=== PATIENT | male | born 1955 | race Caucasian/White ===

== ENCOUNTER 2016-11-14 15:04 | Observation (INO) ==
--- NOTE | 2016-11-14 16:48 | Emergency Department Note ---
Addendum entered and electronically signed by Ancelmo Jenkins, 19:10: EKG dated 11/14/16 at 14:38 interpreted as atrial fibrillation with a rate of 65 and rare PVC.. Normal axis. Nonspecific ST T changes. Compared to previous dated 11/10/2015 showing sinus rhythm. No acute ischemic changes comparison; PVC present on comparative EKG. Repeat EKG 11/14/16 at 10:07 shows sinus rhythm with occasional PVC with a rate of 67. Normal intervals DE 176, QRS 86, QT/QTC 393/398. Normal axis. Rare PVC. Patient spontaneously converted from paroxysmal atrial fibrillation to sinus rhythm. Original Note: Disposition Clinical Impression: Transient neurological symptoms, Chest pain of uncertain etiology Disposition: Admitted As Inpatient Condition: Fair Time of Disposition: 18:24 General Adult HPI - General Chief complaint: ED Chest Pain Stated complaint: chest pain/junie/ams Time Seen by Provider: 11/14/16 15:06 Source: EMS Limitations: no limitations Nursing Notes Reviewed: Yes Vital Signs Reviewed: Yes - History of Present Illness HPI Narrative: Mr. Vasquez, a 61yo male, presents from home via EMS with multiple concerns, the greatest of which is he awoke with slurred speech without facial droop of approximate several minute duration. He is asymptomatic at this time. Last known normal was 10pm last night when he went to sleep. Hx CVA 6 months ago with sequale of left sided upper and lower extremity deficit. Hx CABG 4 yrs ago. Hx A. Fib subtheraputic on coumadin bridged on Lovenox. Upon awaking patient had associated chest pain, dyspnea, diaphoresis, and right upper and lower extremity weakness and parasthesia. Now resolved. He is unable to quantify the duration of these symptoms. His chest pain is described as a midsternal heaviness. He notes is the identical to his chronic post-CABG chest pain; no change in character or severity. No radiation. ROS: POS: CP. Transient slurred speech, right-sided upper and lower extremity weakness, dyspnea, diaphoresis. Negative: Fever, chills, nausea, vomiting, headache, confusion, changes in vision, abdominal pain, dysuria, diarrhea, constipation. Pain Scale: 0 - Related Data Home Medications Medication Instructions Recorded Confirmed Albuterol Sulfate [Proair Hfa] 2 puff IH QID PRN 08/29/15 11/14/16 Aspirin [Adult Low Dose Aspirin EC] 81 mg PO QAM 08/29/15 11/14/16 Chlordiazepoxide [Librium] 25 mg PO BID 08/29/15 11/14/16 Diphenoxylate/Atropine [Lomotil 2 each PO TID PRN 08/29/15 11/14/16 2.5 mg/0.025 mg] Ergocalciferol (VITAMIN D2) 50,000 unit PO MOWE 08/29/15 11/14/16 [Vitamin D2 (50,000 UNIT)] Furosemide [Lasix] 20 mg PO QAM 08/29/15 11/14/16 Isosorbide MONOnitrate (24 HR) 30 mg PO QPM 08/29/15 11/14/16 [Imdur] Lisinopril [Zestril] 20 mg PO BID 08/29/15 11/14/16 Nitroglycerin [Nitrostat] 0.4 mg SL Q5M PRN 08/29/15 11/14/16 [place]-3/Dha/Epa/Fish Oil [Fish Oil 2,000 mg PO BID 08/29/15 11/14/16 1,000 mg Softgel] OxyCODONE/APAP 10/325 [Percocet 1 each PO Q6HR PRN 08/29/15 11/14/16 10/325 MG] Potassium Chloride [K-Tab ER] 20 meq PO QAM 08/29/15 11/14/16 Venlafaxine HCl 100 mg PO BID 08/29/15 11/14/16 metFORMIN [Glucophage] 500 mg PO QAM 08/29/15 11/14/16 Enoxaparin [Lovenox] 80 mg SQ QAM 08/15/16 11/14/16 Carvedilol 12.5 mg PO BID 11/14/16 11/14/16 Furosemide [Lasix] 20 mg PO MOWEFR@1400 11/14/16 11/14/16 Warfarin [Coumadin] 10 mg PO SUTUTHSA 11/14/16 11/14/16 Warfarin [Coumadin] 12.5 mg PO MOWEFR 11/14/16 11/14/16 Previous Rx's Medication Instructions Recorded Simvastatin [Zocor] 40 mg PO HS #30 tablet 09/01/15 Mupirocin [Bactroban Oint] 1 appl TP BID #1 tube 04/10/16 Allergies Allergy/AdvReac Type Severity Reaction Status Date / Time morphine Allergy Agitated Verified 11/14/16 14:43 naproxen [From Naprosyn] Allergy Rash Verified 11/14/16 14:43 propoxyphene [From Darvon] Allergy Rash Verified 11/14/16 14:43 ziprasidone [From Geodon] Allergy Rash Verified 11/14/16 14:43 All systems ED: reviewed and negative except as stated. Past Medical History - Past Medical History Medical history: Reports: aortic aneurysm, asthma, atrial fibrillation, cancer, COPD, CVA, DVT, diabetes, hyperlipidemia, hypertension, renal disease Surgical history: Reports: angioplasty/stent, appendectomy, cancer surgery, cholecystectomy, herniorrhaphy, orthopedic, other, sinus surgery, other (aortic valve replacement; aortic root ) Psychiatric history: Reports: anxiety, depression - Social History Smoking Status: Never smoker Smokeless Tobacco Status: No Alcohol use: Reports: unknown Drug use: Reports: none Physical Exam Vital Signs Reviewed General: Patient is alert, oriented, and in no acute distress. HEENT: No facial asymmetry. Head is normocephalic and atraumatic. PERRLA, EOMI. Oral mucosa moist. Trachea midline. Cardiovascular: Heart regular rate and rhythm without clicks, rubs, gallops. Grade 3/6 LUSB systolic murmor. No JVD. PMI nondisplaced. No pedal edema. Respiratory: Symmetric chest rise with good respiratory effort. Bilateral breath sounds are clear without wheezing, crackles, or rhonchi. Abdomen: Obese. Bowel sounds present normoactive x-4 quadrants. Abdomen is soft , nondistended, and nontender. Musculoskeletal: LEFT: Strength 4/5 and symmetric in upper and lower extremities , DTR 2/4; this is patient's baseline per patient. RIGHT: Muscle strength 5/5 and symmetric in upper and lower extremities, DTR 2/4. Neuro: Cranial nerves II through XII without deficit. LEFT: reduced sensatino in upper and lower extremities; this is the patient's baseline per patient. RIGHT: sensation to light touch intact in upper and lower extremities. Psych: Patient's affect is appropriate for situation. - General Limitations: no limitations General appearance: alert Course Course Narrative: Per patient and at bedside, patient is at baseline. Last known well was 15hrs prior to my assessment. Given his hx of CVA with chronic left sided sequale and ACS, will workup both. On neurologic exam, patient stated he is unable to move his eyes as, "there is a frederick film over them." I clarified; he has no visual changes. There is no film on my inspection. Patient reiterates he cannot move his eyes. Patient moves his eyes during our discussion. When asked to look at the window to his left, he turns his head and look forward. I then asked him to look at me ( patient's front). He turns his eyes and his head follows. Similar results ( vice versa) when patient looks to his right and up to the ceiling. Thus, despite patient saying he cannot move his eyes, he is able to do so. Patient's chest pain is unchanged from his chronic post-CABG pain. Patient's symptoms very between myself, nursing, and my attending. Patient's workup is unremarkable. CT head and chest x-ray shows no acute findings per radiology read. Patient is mildly anemic however this is his baseline. Otherwise, no electrolyte abnormalities and negative troponin. Even so, patient remains high risk given his multiple comorbidities and concerning past medical history. Discussed with the admitting hospitalist who agrees to accept the patient for continued evaluation-likely MRI brain as well as serial troponins. So discussed this plan with the patient and his family at bedside. They had no additional questions or concerns at this time. They agreed to admission. Vital Signs Temperature 98 F 11/14/16 15:07 Pulse Rate 63 11/14/16 15:07 Respiratory Rate 18 11/14/16 15:07 Blood Pressure 162/92 11/14/16 15:07 O2 Sat by Pulse Oximetry 97 11/14/16 15:07 Temperature 97.5 F L 11/14/16 19:33 Pulse Rate 57 11/14/16 19:33 Respiratory Rate 18 11/14/16 19:33 Blood Pressure 152/82 11/14/16 19:33 O2 Sat by Pulse Oximetry 97 11/14/16 20:09 Oxygen Delivery Oxygen Delivery Room Air Medical Decision Making - Lab Data Result diagrams: 11/14/16 16:26 11/14/16 16:26 Lab Results 11/14/16 11/14/16 11/14/16 Range/Units 16:26 16:26 16:26 WBC 4.3 (4.3-11.1) K/mcL RBC 3.65 L (4.19-5.50) M/mcL Hgb 11.6 L (12.9-16.9) g/dL Hct 34.3 L (37.5-50.1) % MCV 94.0 (83.0-100.0) fL MCH 31.8 (28.0-33.3) pg MCHC 33.8 (31.6-35.5) g/dL RDW 12.1 (11.5-14.5) % Plt Count 242 (140-400) K/mcL MPV 8.4 L (9.4-12.4) fL Immature Gran % 0.7 (0-4) % Seg Neutrophils % 49.7 % Lymphocytes % 32.3 % Monocytes % 12.0 % Eosinophils % 4.1 % Basophils % 1.2 % Neutrophils # 2.2 (1.6-8.9) K/mcL Lymphocytes # 1.4 (0.6-4.6) K/mcL Monocytes # 0.5 (0.0-1.3) K/mcL Eosinophils # 0.2 (0.0-0.6) K/mcL Basophils # 0.1 (0.0-0.2) K/mcL PT 19.3 H (9.4-12.1) Seconds INR 1.8 APTT 35.5 (26.0-36.0) Seconds Sodium 138 (136-145) mEq/L Potassium 4.4 (3.5-4.5) mEq/L Chloride 108 (98-109) mEq/L Carbon Dioxide 23 (19-29) mEq/L BUN 18 (8-26) mg/dL Creatinine 0.87 (0.72-1.25) mg/dL Est GFR ( Amer) > 60 (> 60) Est GFR (Non-Af Amer) > 60 (> 60) BUN/Creatinine Ratio 21 (6-26) Glucose 100 H (70-99) mg/dL Calculated Osmolality 288 (280-300) Calcium 9.4 (8.6-10.8) mg/dL Magnesium 1.8 (1.6-2.6) mg/dL Troponin I (0-0.03) ng/mL 11/14/16 Range/Units 16:26 WBC (4.3-11.1) K/mcL RBC (4.19-5.50) M/mcL Hgb (12.9-16.9) g/dL Hct (37.5-50.1) % MCV (83.0-100.0) fL MCH (28.0-33.3) pg MCHC (31.6-35.5) g/dL RDW (11.5-14.5) % Plt Count (140-400) K/mcL MPV (9.4-12.4) fL Immature Gran % (0-4) % Seg Neutrophils % % Lymphocytes % % Monocytes % % Eosinophils % % Basophils % % Neutrophils # (1.6-8.9) K/mcL Lymphocytes # (0.6-4.6) K/mcL Monocytes # (0.0-1.3) K/mcL Eosinophils # (0.0-0.6) K/mcL Basophils # (0.0-0.2) K/mcL PT (9.4-12.1) Seconds INR APTT (26.0-36.0) Seconds Sodium (136-145) mEq/L Potassium (3.5-4.5) mEq/L Chloride (98-109) mEq/L Carbon Dioxide (19-29) mEq/L BUN (8-26) mg/dL Creatinine (0.72-1.25) mg/dL Est GFR ( Amer) (> 60) Est GFR (Non-Af Amer) (> 60) BUN/Creatinine Ratio (6-26) Glucose (70-99) mg/dL Calculated Osmolality (280-300) Calcium (8.6-10.8) mg/dL Magnesium (1.6-2.6) mg/dL Troponin I 0.00 (0-0.03) ng/mL Attestation Statement - Attestation Attestation: I, Dannie Graham, examined this patient and my medical decision-making was reviewed with the MARKETING DATABASE CONSULTANT/PA/Advanced Practice Nurse/Resident Physician. I agree with the documented findings, disposition and treatment plan as described except to the extent set forth below. 61-year-old male presents with concerns of chest pressure and possible increased weakness of his left upper and left lower extremities. The patient is a poor story and in that he has changed the place his weakness multiple times during his evaluation today however he states to me that he woke up this morning with significant confusion, slurred speech and increased left upper extremity and left lower extremity weakness. Patient states he has a history of a previous CVA which caused slurred speech and left upper and lower extremity weakness however today he was unable to ambulate and did not have any salicylic acid blender strength per his who was there at the time. Patient also reports having significant pain to his central chest that felt like a vice which lasted 10-15 minutes before improving without intervention. Patient has a history of hypertension, hyperlipidemia, diabetes and a history of cardiac stenting in the past. The pain is not present in the emergency department. Patient has no slurred speech to my exam however there is some mild left upper and left lower extremity weakness that is present which family states is baseline. EKG shows normal sinus rhythm with rate of 67 without evidence of STEMI. Repeat EKG showed normal sinus rhythm with rate of 65 without evidence of STEMI. Initial troponin was negative. CT of his head did not reveal acute intracranial hemorrhage or mass. Patient will be admitted to the hospital for further evaluation of his weakness and chest pain. NIH Stroke Scale - Level of Consciousness LOC: Alert - LOC Questions LOC Questions: Answers both correctly - LOC Commands LOC Commands: Performs both correctly - Best Gaze Best Gaze: Normal - Visual Visual: No visual loss - Facial Palsy Facial Palsy: Normal - Motor Arms Motor Arm-Left: No drift for 10 seconds Motor Arm-Right: No drift for 10 seconds - Motor Legs Motor Leg-Left: No drift for 5 seconds Motor Leg-Right: No drift for 5 seconds - Limb Ataxia Limb Ataxia: Normal, No Ataxia - Sensory Sensory: Normal - Best Language Best Language: No aphasia - Dysarthria Dysarthria: Normal - Extinction and Inattention Extinction and Inattention: Normal - NIHSS Total Score NIHSS Total Score: 0
[2016-11-14 16:50] LABS: Basophils # 0.1 K/mcL (0.0-0.2); Basophils % 1.2 %; Eosinophils # 0.2 K/mcL (0.0-0.6); Eosinophils % 4.1 %; Hematocrit 34.3 % (37.5-50.1); Hemoglobin 11.6 g/dL (12.9-16.9); Immature Granulocytes % 0.7 % (0-4); Lymphocytes # 1.4 K/mcL (0.6-4.6); Lymphocytes % 32.3 %; Mean Corpuscular HGB Conc 33.8 g/dL (31.6-35.5); Mean Corpuscular Hemoglobin 31.8 pg (28.0-33.3); Mean Platelet Volume 8.4 fL (9.4-12.4); Monocytes # 0.5 K/mcL (0.0-1.3); Neutrophils # 2.2 K/mcL (1.6-8.9); Platelet Count 242 K/mcL (140-400); Red Blood Count 3.65 M/mcL (4.19-5.50); Red Cell Distribution Width 12.1 % (11.5-14.5); Segmented Neutrophils % 49.7 %
[2016-11-14 16:55] LABS: INR 1.8; Prothrombin Time 19.3 Seconds (9.4-12.1)
[2016-11-14 16:58] LABS: Activated Partial Thrombo Time 35.5 Seconds (26.0-36.0)
[2016-11-14 17:06] LABS: BUN/Creatinine Ratio 21 (6-26); Blood Urea Nitrogen 18 mg/dL (8-26); Calcium 9.4 mg/dL (8.6-10.8); Carbon Dioxide 23 mEq/L (19-29); Chloride 108 mEq/L (98-109); Glucose 100 mg/dL (70-99); Magnesium 1.8 mg/dL (1.6-2.6); Osmolality,Calculated 288 (280-300); Potassium 4.4 mEq/L (3.5-4.5); Sodium 138 mEq/L (136-145); eGFR For African Americans > 60 (> 60); eGFR For Non-African Americans > 60 (> 60)
[2016-11-14] MEDS ORDERED: Naloxone 0.4 MG/ML INJ IVP PRN (20:54)
[2016-11-14] MEDS ORDERED: Nitroglycerin 0.4 MG TAB.SUBL SL PRN (20:58)
[2016-11-14] MEDS ORDERED: *HR* OxyCODONE/APAP 10/325 TABLET PO PRN (20:58)
[2016-11-14] MEDS ORDERED: *HR* Warfarin 5 MG TABLET PO SCH (21:00)
--- NOTE | 2016-11-14 21:37 | Internal Med History&Physical ---
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 He does have an appointment with [facility] neurology as an outpatient. He also has hx of CVA/TIA We will continue neuro assessments 2 we will obtain MRI 3 continue with aspirin and statin 4 consult neurology 5 FALL precautions (2) Chest pain of uncertain etiology Current visit: Yes Status: Acute 1 patient was awakened this a.m. with midsternal chest pain which did resolve on own. I do not suspect that this is cardiac in nature, pain is reproducible as well as occurs during inspiration. He does have history of chronic chest pain related to his previous CABG surgery. However as considering his extensive cardiac history ,we will continue to cycle cardiac troponins We will also obtain D chris to r/o possible PE dt pleuritic pain and history of DVTs 2 continue with nitroglycerin as needed for chest pain 3 continue aspirin and statin and beta shawn, [place] and Imdur 4 continue cardiac monitoring (3) DM (diabetes mellitus) Current visit: No Status: Acute 1 Accu-Cheks before meals at bedtime with sliding scale insulin will hold oral antidiabetics for now Qualifiers: Diabetes mellitus type: type 2 Diabetes mellitus complication status: with unspecified complications Diabetes mellitus detention insulin use: without detention use Qualified Code(s): E11.8 - Type 2 diabetes mellitus with unspecified complications (4) Paroxysmal atrial fibrillation Current visit: No Status: Acute 1 patient was in atrial fibrillation upon presentation he converted to sinus rhythm he does have a history of valvular heart disease we will continue with his Coumadin as well as Lovenox bridge. Patient does have a history of hypercoagulable state pharmacy to dose Coumadin. Yosef patient's INR is 1.8 did discuss with pharmacist Bryon who advised increasing Lovenox to 1 mg/kg twice a day (5) DVT prophylaxis Current visit: No Status: Acute Continue with Coumadin and Lovenox bridge Internal Medicine - H&P: HPI Chief complaint: Chest pain, garbled speech Admitted From: Emergency Dept Plans for Post Hospital Care: Home History of present illness: Mr. Vasquez is a 61 year old male extensive past medical history which does include valvular heart disease hypertension atrial fibrillation Parkinson's disease hypertension COPD chronic chest pain paroxysmal atrial fibrillation aortic valve replacement with bioprosthetic valve diabetes CVA neuropathy according to the patient he awoke approximately 5 AM this morning crying experiencing garbled speech as well as chest pain and shortness of breath and confusion and nausea he states the symptoms lasted approximately 10 minutes. He describes chest pain as midsternal heaviness nonradiating. He was able to get up and eat a bowl of cereal after about an hour he states his symptoms returned and again resolved on their own. His last known well time was approximately 10 PM the night before he did have a CVA approximately 6 months ago with sequela of left-sided upper and lower extremity deficit. He did report to a outpatient clinic for evaluation advised him to go to the ER. According to ER records CT/chest x-ray were obtained which revealed no acute findings per radiology read. Lab work did reveal some anemia however this seems to be his baseline other there were no electrolyte abnormalities his troponin was negative. According to ER records on neurological exam patient states he is unable to move his eyes it was noted the patient did move his eyes during the Discussion due to his extensive history patient has been admitted for further workup and evaluation. After extensive review of patient records. According to PCP records, Dr Richard, he has complain of crying episodes difficulty ambulating frequent falls increased agitation. He was seen by Dr. Krishna neurology on 08/27/[address] Krishna describe the patient having limiting gaze and paratonia involving the neck as well as experiencing dysphagia. MRI of the brain at that time did not reveal any evidence of atrophy in the cerebellum or indicate a history of a previous infarct. Dr. 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 He is scheduled to follow up with [facility] neurology. Presently the patient is alert oriented and appropriate he does follow simple commands during neurological assessment I do note that patient does turn head more often then moving his eyes particularly toward the right. His lung sounds are clear heart sounds are S1 and S2 he does have a 3/6 systolic murmur. He does have lower extremity edema which she states is chronic abdomen soft and nontender he does have reproducible pain along his sternum. Patient states he does have chest pain upon inspiration and during palpation of chest. Patient does have left-sided weakness hand grasps weak. Patient states this is his baseline He is hemodynamically stable this time. I reviewed his case with who agrees with plan Past Med Surg Social Fam HX - Past Medical History Medical history: aortic aneurysm, asthma, atrial fibrillation, cancer, COPD, CVA , DVT, diabetes, hyperlipidemia, hypertension, renal disease Psychiatric history: anxiety, depression - Past Surgical History Surgical History: angioplasty/stent, appendectomy, cancer surgery, cholecystectomy, herniorrhaphy, orthopedic, other, sinus surgery, other - Social History Smoking Status: Never smoker Smokeless Tobacco Status: No Alcohol use: none Drug use: none - Family History Mother Family Member Ethnicity: Non- Living Status: Hx Family Cardiac Disorders: No Hx Family Respiratory Disorders: No Hx Family Cancer: Yes (Lung cancer) Hx Family GI Disorders: No Hx Family Endocrine Disorder: No Hx Family Neuromuscular Disorders: No Hx Family Neurologic Disorders: No Hx Family HEENT Disorders: No Hx Family Autoimmune Disorders: No Internal Medicine - H&P: Meds Albuterol Sulfate [Proair Hfa] 2 puff IH QID PRN 08/29/15 [History] Aspirin [Adult Low Dose Aspirin EC] 81 mg PO QAM 08/29/15 [History] Chlordiazepoxide [Librium] 25 mg PO BID 08/29/15 [History] Diphenoxylate/Atropine [Lomotil 2.5 mg/0.025 mg] 2 each PO TID PRN 08/29/15 [ History] Ergocalciferol (VITAMIN D2) [Vitamin D2 (50,000 UNIT)] 50,000 unit PO MOWE 08/28 [History] Furosemide [Lasix] 20 mg PO QAM 08/29/15 [History] Isosorbide MONOnitrate (24 HR) [Imdur] 30 mg PO QPM 08/29/15 [History] Lisinopril [Zestril] 20 mg PO BID 08/29/15 [History] Nitroglycerin [Nitrostat] 0.4 mg SL Q5M PRN 08/29/15 [History] [place]-3/Dha/Epa/Fish Oil [Fish Oil 1,000 mg Softgel] 2,000 mg PO BID 08/29/15 [ History] OxyCODONE/APAP 10/325 [Percocet 10/325 MG] 1 each PO Q6HR PRN 08/29/15 [History] Potassium Chloride [K-Tab ER] 20 meq PO QAM 08/29/15 [History] Venlafaxine HCl 100 mg PO BID 08/29/15 [History] metFORMIN [Glucophage] 500 mg PO QAM 08/29/15 [History] Simvastatin [Zocor] 40 mg PO HS #30 tablet 09/01/15 [Rx] Mupirocin [Bactroban Oint] 1 appl TP BID #1 tube 04/10/16 [Rx] Enoxaparin [Lovenox] 80 mg SQ QAM 08/15/16 [History] Carvedilol 12.5 mg PO BID 11/14/16 [History] Furosemide [Lasix] 20 mg PO MOWEFR@1400 11/14/16 [History] Warfarin [Coumadin] 10 mg PO SUTUTHSA 11/14/16 [History] Warfarin [Coumadin] 12.5 mg PO MOWEFR 11/14/16 [History] Allergies morphine Allergy (Verified 11/14/16 14:43) Agitated naproxen [From Naprosyn] Allergy (Verified 11/14/16 14:43) Rash propoxyphene [From Darvon] Allergy (Verified 11/14/16 14:43) Rash ziprasidone [From Geodon] Allergy (Verified 11/14/16 14:43) Rash All Systems PM: A 10-system review of systems was performed and is negative for pertinent findings except as documented above in the HPI. - Constitutional Constitutional: falls, weakness, weight loss, no chills, no fever(s), no night sweats - EENT Eyes: blurry vision, no change in vision, no discharge, no pain, no photophobia Nose, mouth and throat: dysphagia, no nasal discharge, no neck pain, no sore throat - Cardiovascular Cardiovascular ROS IM: chest pain, edema - Respiratory Respiratory: dyspnea, no cough, no wheezing, no excessive phlegm production - Gastrointestinal Gastrointestinal: no abdominal pain, no diarrhea, no hematemesis, no hematochezia, no melena, no nausea, no vomiting - Musculoskeletal Musculoskeletal ROS IM: back pain, no numbness, no tingling - Integumentary Integumentary IM: no rash, no unusual bruising - Neurological Neurological ROS: abnormal speech, confusion, frequent falls, no convulsions, no focal weakness, no numbness, no tingling, no tremor(s) - Psychiatric Psychiatric: confusion - Hematologic/Lymphatic Hematologic/Lymphatic: no easy bruising - Constitutional Vitals: Temp Pulse Resp BP Pulse Ox 97.5 F L 57 18 152/82 97 11/14/16 19:33 11/14/16 19:33 11/14/16 19:33 11/14/16 19:33 11/14/16 20:09 General appearance: Present: A&O X 3 - Head Head exam: Present: atraumatic, normocephalic - Eye Eye exam: Present: PERRL, conjuntiva pink, sclera anicteric Pupils: Present: PERRL - Neck Neck exam general surgery: Present: supple, trachea midline. Absent: lymphadenopathy - Respiratory Respiratory exam: Present: CTAB. Absent: accessory muscle use, rales, rhonchi, wheezes - Cardiovascular Cardiovascular exam: Present: RRR, +S1, +S2, systolic murmur. Absent: diastolic murmur, gallop, rubs - GI/Abdominal GI/Abdominal exam: Present: normal bowel sounds, soft, no peritoneal signs. Absent: distended, tenderness - Extremities Exam Extremities exam: Present: pedal edema, warm, radial pulses palpable and symetrical. Absent: calf tenderness, cyanotic - Neurological Exam Neurological exam: Present: CN II-XII intact, oriented X3, no focal deficits. Absent: pronater drift, facial droop, speech deficit Additional comments: Patient has left-sided weakness has limited EOMI - Skin Skin exam: Present: dry, intact Internal Med - H&P Results - Labs CBC & Chem 7: 11/14/16 16:26 11/14/16 16:26 - EKG Data EKG comments: 11/14/16 21:45 It appears on presentation initial EKG patient was in atrial fibrillation with controlled rate of 65 and then converted to sinus rhythm rate of 67 with occasional PVCs and no ST-T wave abnormality - Diagnostic Studies Other Images Additional comments: Chest X-Ray 11/14/16 15:24 IMPRESSION: No acute cardiopulmonary disease is identified. D/ / Cooper Gross MD / Cooper Gross MD Interpreting Provider: Cooper Gross MD Head CT 11/14/16 15:25 IMPRESSION: No acute intracranial abnormality. D/ / Cooper Gross MD / Cooper Gross MD Interpreting Provider: Cooper Gross MD
[2016-11-14] MEDS: Isosorbide MONOnitrate (24 HR) 30 MG TAB.ER.24H PO SCH (21:38)
[2016-11-14] MEDS: Lisinopril 20 MG TABLET PO SCH (21:38)
[2016-11-14] MEDS ORDERED: D5% in Water 1,000 ML IVC PRN (21:50)
[2016-11-14] MEDS ORDERED: Dextrose Gel 15 GM PO PRN ×2 (21:50)
[2016-11-14] MEDS ORDERED: *HR* Dextrose 50 % in Water (Syg) 50 ML SYRINGE IVP PRN (21:50)
[2016-11-15] MEDS ORDERED: *HR* HYDROmorphone (PF) 1 MG/ML SYRINGE IVP ONE (03:04)
[2016-11-15 05:21] LABS: Prothrombin Time 21.8 Seconds (9.4-12.1)
[2016-11-15 05:29] LABS: Basophils # 0.1 K/mcL (0.0-0.2); Eosinophils # 0.2 K/mcL (0.0-0.6); Hematocrit 33.2 % (37.5-50.1); Hemoglobin 11.2 g/dL (12.9-16.9); Immature Granulocytes % 0.4 % (0-4); Lymphocytes # 1.6 K/mcL (0.6-4.6); Lymphocytes % 31.7 %; Mean Corpuscular HGB Conc 33.7 g/dL (31.6-35.5); Mean Corpuscular Hemoglobin 32.1 pg (28.0-33.3); Mean Corpuscular Volume 95.1 fL (83.0-100.0); Mean Platelet Volume 8.8 fL (9.4-12.4); Monocytes # 0.5 K/mcL (0.0-1.3); Monocytes % 9.7 %; Neutrophils # 2.7 K/mcL (1.6-8.9); Platelet Count 231 K/mcL (140-400); Red Blood Count 3.49 M/mcL (4.19-5.50); Red Cell Distribution Width 12.2 % (11.5-14.5); Segmented Neutrophils % 53.2 %
[2016-11-15 05:45] LABS: BUN/Creatinine Ratio 17 (6-26); Blood Urea Nitrogen 17 mg/dL (8-26); Carbon Dioxide 25 mEq/L (19-29); Chloride 105 mEq/L (98-109); Glucose 102 mg/dL (70-99); Osmolality,Calculated 286 (280-300); Potassium 4.1 mEq/L (3.5-4.5); Sodium 137 mEq/L (136-145); eGFR For African Americans > 60 (> 60); eGFR For Non-African Americans > 60 (> 60)
[2016-11-15] MEDS: *HR* Enoxaparin 120 MG/0.8 ML SYRINGE SQ SCH ×2 (06:15→17:33)
[2016-11-15] MEDS: Furosemide 20 MG TABLET PO SCH (08:45)
[2016-11-15] MEDS: Insulin LISPRO 300 UNITS/3 ML VIAL SQ SCH ×3 (08:45→17:07)
[2016-11-15] MEDS: Lisinopril 20 MG TABLET PO SCH ×2 (08:45→21:45)
[2016-11-15] MEDS: Aspirin Enteric Coated 81 MG Tablet PO SCH (08:45)
[2016-11-15] MEDS ORDERED: *HR* Enoxaparin 40 MG/0.4 ML SYRINGE SQ SCH (09:00)
--- NOTE | 2016-11-15 10:16 | Neurology - Consult Note ---
Date of Encounter: 11/15/16 Time of Encounter: 10:11 Assessment and Plan (1) TIA (transient ischemic attack) Current Visit: Yes Status: Acute Apparently the patient developed transient neurological symptoms with slurred speech and worsening left sided weakness, lasting less than 30 minutes with total resolution and MRI of brain showed no evidence of stroke therefore he likely developed TIA. He is already on coumadin with therapeutic INR. he does have history of previous stroke causing left sided paresis, this can be aggravated by medical conditions. Not sure this would be consistent with a true TIA but would recommend getting a repeat carotid artery duplex. In terms of treatment, he is already on coumadin with therapeutic INR and also aspirin 81mg daily, i would make no changes in terms of secondary CVA prevention. Please continue medical and supportive care. Qualifiers: Transient cerebral ischemia type: unspecified Qualified Code(s): G45.9 - Transient cerebral ischemic attack, unspecified History of Present Illness Chief complaint: slurred speech and left sided weakness HPI: Mr. Vasquez is a 61 year old male with PMH significant fr COPD, Atrial fibrillation on coumadin, HTN, hyperlipidemia, history of aortic root repair, renal cell carcinoma, CKD, anxiety depression, mood disorder, history of CVA who developed some neurological complaints, mostly slurred speech and worsening left sided weakness. Apparently these symptoms occurred in the morning when he woke up and lasted about 10 minutes? and by the time he arrived ER the symptoms essentially resolved. He tells me that he has had two strokes and ended up with left sided weakness. he tells me that the last stroke occurred during October/2016 and he was treated here at [place] but MRI of brain during October/2016 showed no acute ischemic infarct. He has history of aortic valve replacement and history of PAF and has been on coumadin. Came in with INR of 1.8 and now 2.0. Has had carotid artery doppler study last being 08/2015. At the time of this interview, he has no significant discomforts, but left side is still weak Past Med Surg Social Fam HX - Past Medical History Medical history: aortic aneurysm, asthma, atrial fibrillation, cancer, COPD, CVA , DVT, diabetes, hyperlipidemia, hypertension, renal disease Psychiatric history: anxiety, depression - Past Surgical History Surgical History: angioplasty/stent, appendectomy, cancer surgery, cholecystectomy, herniorrhaphy, orthopedic, other, sinus surgery, other - Social History Smoking Status: Never smoker Smokeless Tobacco Status: No Alcohol use: none Drug use: none - Family History Mother Family Member Ethnicity: Non- Living Status: Hx Family Cardiac Disorders: No Hx Family Respiratory Disorders: No Hx Family Cancer: Yes (Lung cancer) Hx Family GI Disorders: No Hx Family Endocrine Disorder: No Hx Family Neuromuscular Disorders: No Hx Family Neurologic Disorders: No Hx Family HEENT Disorders: No Hx Family Autoimmune Disorders: No Medications and Allergies Albuterol Sulfate [Proair Hfa] 2 puff IH QID PRN 08/29/15 [History] Aspirin [Adult Low Dose Aspirin EC] 81 mg PO QAM 08/29/15 [History] Chlordiazepoxide [Librium] 25 mg PO BID 08/29/15 [History] Diphenoxylate/Atropine [Lomotil 2.5 mg/0.025 mg] 2 each PO TID PRN 08/29/15 [ History] Ergocalciferol (VITAMIN D2) [Vitamin D2 (50,000 UNIT)] 50,000 unit PO MOWE 08/28 [History] Furosemide [Lasix] 20 mg PO QAM 08/29/15 [History] Isosorbide MONOnitrate (24 HR) [Imdur] 30 mg PO QPM 08/29/15 [History] Lisinopril [Zestril] 20 mg PO BID 08/29/15 [History] Nitroglycerin [Nitrostat] 0.4 mg SL Q5M PRN 08/29/15 [History] [place]-3/Dha/Epa/Fish Oil [Fish Oil 1,000 mg Softgel] 2,000 mg PO BID 08/29/15 [ History] OxyCODONE/APAP 10/325 [Percocet 10/325 MG] 1 each PO Q6HR PRN 08/29/15 [History] Potassium Chloride [K-Tab ER] 20 meq PO QAM 08/29/15 [History] Venlafaxine HCl 100 mg PO BID 08/29/15 [History] metFORMIN [Glucophage] 500 mg PO QAM 08/29/15 [History] Simvastatin [Zocor] 40 mg PO HS #30 tablet 09/01/15 [Rx] Mupirocin [Bactroban Oint] 1 appl TP BID #1 tube 04/10/16 [Rx] Enoxaparin [Lovenox] 80 mg SQ QAM 08/15/16 [History] Carvedilol 12.5 mg PO BID 11/14/16 [History] Furosemide [Lasix] 20 mg PO MOWEFR@1400 11/14/16 [History] Warfarin [Coumadin] 10 mg PO SUTUTHSA 11/14/16 [History] Warfarin [Coumadin] 12.5 mg PO MOWEFR 11/14/16 [History] Allergies morphine Allergy (Verified 11/14/16 14:43) Agitated naproxen [From Naprosyn] Allergy (Verified 11/14/16 14:43) Rash propoxyphene [From Darvon] Allergy (Verified 11/14/16 14:43) Rash ziprasidone [From Geodon] Allergy (Verified 11/14/16 14:43) Rash All Systems: A 10-system review of systems was performed and is negative for pertinent findings except as documented above in the HPI. Physical Examination - Vital Signs Vital Signs: Initial Vital Signs Temp Pulse Resp BP Pulse Ox 98 F 63 18 162/92 97 11/14/16 15:07 11/14/16 15:07 11/14/16 15:07 11/14/16 15:07 11/14/16 15:07 - Constitutional General appearance: comfortable - Neurologic Sensorimotor examination: intact Detailed motor examination: other (Mild hemiparesis seen to the left arm and leg , sparing the face) Motor examination - right side: 5/5: deltoids, biceps, triceps, wrist flexion, wrist extension, car pusher, hip flexors, tibialis Anterior, quadriceps, toe extension (EHL), plantarflexion Motor examination - left side: 4/5: deltoids, biceps, triceps, wrist flexion, wrist extension, hip flexors, car pusher, quadriceps, tibialis Anterior, toe extension (EHL), plantarflexion Detailed sensory examination: intact Posture: other (None) Reflex and gait examination: other (No clous seen. Gait not assessed.) Reflexes: Biceps: 1+, Triceps: 1+, Brachioradialis: 1+, Patella: 1+, Achilles: 1 + Mental Status Examination: awake, alert, oriented to person, oriented to place, oriented to time, follows commands appropriately, answers questions appropriately, no agnosia, no aphasia, no aproxia Cranial nerve examination: PERRL, EOMI, visual eisenberg intact, corneal reflexes brisk symmetrically, sensory to face intact, mastication intact, no facial asymmetry is present, no dysarthria, hearing is intact symmetrically, soft palate elevates bilaterally upon phonation, gag reflex intact, flexes SCM and trapezius muscles symmetrically with full power, tongue protrudes midline, no atrophy or facial fasiculations present Results - Laboratory Findings CBC and BMP: 11/15/16 04:24 11/15/16 04:24 Abnormal lab findings: Abnormal lab results RBC 3.49 M/mcL (4.19-5.50) L 11/15/16 04:24 Hgb 11.2 g/dL (12.9-16.9) L 11/15/16 04:24 Hct 33.2 % (37.5-50.1) L 11/15/16 04:24 MPV 8.8 fL (9.4-12.4) L 11/15/16 04:24 PT 21.8 Seconds (9.4-12.1) H 11/15/16 04:24 Glucose 102 mg/dL (70-99) H 11/15/16 04:24 POC Glucose 100 (58-89) H 11/14/16 19:40 Consult Discharge Plan - Plan Referrals: NO,PCP [Primary Care Provider] -
--- NOTE | 2016-11-15 13:13 | Internal Med Progress Note ---
Date of Encounter: 11/15/16 Time of Encounter: 10:30 - Assessment and plan (1) TIA (transient ischemic attack) Current Visit: Yes Status: Acute Assessment and plan: Head CT negative. Brain MRI negative for acute processes. Acute CVA ruled out. Patient with chronic left-sided weakness. On examination, he is alert and oriented 3. He is slow to respond to questions but his speech is fully intelligible. Seen by neurology who recommended continuing current plan of care given that he is therapeutic on Coumadin. Awaiting carotid ultrasound. Awaiting OT and PT consultations. Patient is still complaining of a headache that he states is consistent with his regular headache and he states he usually takes an aspirin at home which relieves his headaches. He states he gets headaches every other day. Patient stating he received a shot at 4:00 this morning that "cured" him area and this was delighted, no indication to repeat Dilaudid at this time. Acute CVA has been ruled out. Patient stating he is also fallen twice in the last week, awaiting OT and PT consultations. ITS Impressions Head CT 11/14/16 15:25 IMPRESSION: No acute intracranial abnormality. D/ / Cooper Gross MD / Cooper Gross MD Interpreting Provider: Cooper Gross MD Brain MRI 11/15/16 07:56 IMPRESSION: 1. No acute intracranial abnormality. No acute infarct. 2. Minimal chronic microvascular ischemic changes. 3. Left mastoid effusion. D/ / Alcon Skinner MD / Alcon Skinner MD Interpreting Provider: Alcon Skinner MD Qualifiers: Transient cerebral ischemia type: unspecified Qualified Code(s): G45.9 - Transient cerebral ischemic attack, unspecified (2) Chest pain of uncertain etiology Current Visit: Yes Status: Acute Assessment and plan: Patient denies chest pain on examination. D-dimer negative. Troponins negative 4. Low suspicion for acute coronary syndrome. (3) Transient neurological symptoms Current Visit: Yes Status: Resolved (4) CVA (cerebral vascular accident) Current Visit: No Status: Chronic Assessment and plan: No new focal neurological weaknesses. Left-sided weakness still present with mild expressive aphasia Qualifiers: CVA mechanism: unspecified Qualified Code(s): I63.9 - Cerebral infarction, unspecified (5) Weakness of left side of body Current Visit: No Status: Chronic (6) CHF (congestive heart failure) Current Visit: No Status: Chronic Assessment and plan: Echocardiogram from 08/29/15 revealing ejection fraction of 60% with moderate diastolic dysfunction. Patient denies shortness of breath above her snoring and is euvolemic on examination. Chronic diastolic heart failure, no acute exacerbation. Qualifiers: Congestive heart failure type: diastolic Congestive heart failure chronicity: chronic Qualified Code(s): I50.32 - Chronic diastolic (congestive ) heart failure (7) CAD (coronary artery disease) Current Visit: No Status: Chronic Assessment and plan: Patient denies chest pain at this time. Troponins negative 4. Low suspicion for acute coronary syndrome. (8) COPD (chronic obstructive pulmonary disease) Current Visit: No Status: Chronic Assessment and plan: no acute exacerbation Qualifiers: COPD type: unspecified COPD Qualified Code(s): J44.9 - Chronic obstructive pulmonary disease, unspecified (9) DM (diabetes mellitus) Current Visit: No Status: Chronic Assessment and plan: Controlled at home with a recent A1c of 6.4%. Continue sliding scale while admitted. Qualifiers: Diabetes mellitus type: type 2 Diabetes mellitus complication status: with unspecified complications Diabetes mellitus terminal press operator insulin use: without custodial use Qualified Code(s): E11.8 - Type 2 diabetes mellitus with unspecified complications (10) Paroxysmal atrial fibrillation Current Visit: No Status: Chronic Assessment and plan: Rate controlled, therapeutic on Coumadin (11) DVT prophylaxis Current Visit: No Status: Acute Assessment and plan: Therapeutic on Coumadin INR 2.0 today (12) HTN (hypertension) Current Visit: Yes Status: Chronic Assessment and plan: Borderline hypertensive since arrival. At home, patient is on lisinopril 20 mg twice a day, Imdur 30 mg daily, furosemide, carvedilol 12.5 mg twice a day. All of these medications have been continued. We will increase his carvedilol and monitor. - Subjective Interval history: Patient seen and examined. On examination, patient is sitting upright in bed watching television. Patient stating that he still feels weak on his left side. Patient also stating he has a headache that is consistent with his normal headaches and is usually relieved by aspirin at home. He denies shortness of breath above his norm at this time. Patient is requesting to have a repeat "shot of whatever they gave me at 4 AM, it cured me." - Constitutional Vitals: Temp Pulse Resp BP Pulse Ox 97.8 F 67 18 162/93 96 11/15/16 06:46 11/15/16 06:46 11/15/16 06:46 11/15/16 06:46 11/15/16 06:46 General appearance: Present: A&O X 3, pleasant, no acute distress, answers questions appropriately - Head Head exam: Present: atraumatic, normocephalic - Eye Eye exam: Present: PERRL, conjuntiva pink, sclera anicteric Pupils: Present: PERRL - Neck Neck exam general surgery: Present: supple, trachea midline. Absent: lymphadenopathy - Respiratory Respiratory exam: Present: CTAB. Absent: accessory muscle use, rales, respiratory distress, rhonchi, wheezes - Cardiovascular Cardiovascular exam: Present: RRR, +S1, +S2. Absent: diastolic murmur, gallop, rubs, systolic murmur - GI/Abdominal GI/Abdominal exam: Present: normal bowel sounds, soft, no peritoneal signs. Absent: distended, tenderness - Extremities Exam Extremities exam: Present: warm, radial pulses palpable and symetrical. Absent : calf tenderness, cyanotic, pedal edema - Neurological Exam Neurological exam: Present: alert, CN II-XII intact, oriented X3, no focal deficits, speech deficit. Absent: strengths equal and symetr throughout, pronater drift, facial droop - Expanded Neurological Exam Neurological exam expanded: Present: protecting the airway Patient oriented to: Present: person, place, time Speech: Present: slurred (but intelligible) Cranial Nerves: EOM's intact PM: Normal Neuro motor strength exam: LUE: 4, RUE: 5, LLE: 4, RLE: 5 Coma Scale Eye Opening: Spontaneous Coma Scale Motor Response: Obeys Commands Coma Scale Verbal Response: Oriented Coma Scale Total: 15 - Skin Skin exam: Present: dry, intact, normal color, warm Internal Medicine: Result - Labs CBC & Chem 7: 11/15/16 04:24 11/15/16 04:24 Labs: Short CBC 11/15/16 Range/Units 04:24 WBC 5.1 (4.3-11.1) K/mcL Hgb 11.2 L (12.9-16.9) g/dL Hct 33.2 L (37.5-50.1) % Plt Count 231 (140-400) K/mcL Neutrophils # 2.7 (1.6-8.9) K/mcL BMP 11/15/16 04:24 Sodium 137 Potassium 4.1 Chloride 105 Carbon Dioxide 25 BUN 17 Creatinine 0.98 Glucose 102 H Calcium 9.0 Cardiac Enzymes 11/14/16 11/15/16 11/15/16 Range/Units 22:05 04:24 09:35 Troponin I 0.01 0.01 0.01 (0-0.03) ng/mL - ABG Interpretation ABG results: PT/INR, D-dimer PT 21.8 Seconds (9.4-12.1) H 11/15/16 04:24 D-Dimer 378 ng/mLFEU (0-500) 11/14/16 23:04 - Impressions Impressions Brain MRI 11/15/16 07:56 IMPRESSION: 1. No acute intracranial abnormality. No acute infarct. 2. Minimal chronic microvascular ischemic changes. 3. Left mastoid effusion. D/ / Alcon Skinner MD / Alcon Skinner MD Interpreting Provider: Alcon Skinner MD Consult Discharge Plan - Plan Referrals: NO,PCP [Primary Care Provider] -
--- NOTE | 2016-11-15 14:45 | Electrocardiograph Report ---
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
[2016-11-15] MEDS: Isosorbide MONOnitrate (24 HR) 30 MG TAB.ER.24H PO SCH (17:32)
[2016-11-15] MEDS ORDERED: *HR* Warfarin 10 MG TABLET PO SCH (18:00)
[2016-11-15] MEDS ORDERED: Warfarin perPT PO PRN (18:00)
[2016-11-15] MEDS ORDERED: Insulin LISPRO 300 UNITS/3 ML VIAL SQ SCH (21:00)
[2016-11-16 05:41] LABS: INR 2.5
[2016-11-16] MEDS: Insulin LISPRO 300 UNITS/3 ML VIAL SQ SCH ×2 (08:46→11:53)
[2016-11-16] MEDS: Aspirin Enteric Coated 81 MG Tablet PO SCH (08:55)
[2016-11-16] MEDS: Lisinopril 20 MG TABLET PO SCH (08:56)
[2016-11-16] MEDS: Furosemide 20 MG TABLET PO SCH (08:56)
--- NOTE | 2016-11-16 09:37 | Neurology Progress Note ---
Date of Encounter: 11/16/16 Time of Encounter: 09:33 Assessment and Plan (1) TIA (transient ischemic attack) Current Visit: Yes Status: Acute Patient presented with multiple complaints with improvement seen gradually since the admission. MRI of brain showed no evidence of acute infarct. There appear to be some embellishment in terms of his neurological complaints but there is no evidence of new neurological pathology. On coumadin and aspirin and the regimen seems adequate. Will recommend no further testing. Please continue medical and supportive care. Will sign off now, please call if any questions Qualifiers: Transient cerebral ischemia type: unspecified Qualified Code(s): G45.9 - Transient cerebral ischemic attack, unspecified Subjective Principal diagnosis: multiple complaints Interval history: Patient seen and examined. He is doing and feeling better. Is sitting on the edge of bed eating breakfast. Symptoms are multiple but agrees that he is recovered almost back to baseline. Is waiting for PT evaluation but not sure he really needs it. He reports right sided weakness but no drift is seen although the right arm moves a little slow. No speech difficulty. Regarding his previous history of stroke, he has had few MRI of brain done here and no one showed acute infarct. He reports that he was told the different diagnosis in the past and one told him that he might have a stroke the other told him not. Is on Coumadin and aspirin. INR 2.5 today Objective - Constitutional Vitals: Temp Pulse Resp BP Pulse Ox 97.6 F 67 14 137/81 96 11/16/16 07:22 11/16/16 07:22 11/16/16 07:22 11/16/16 07:22 11/16/16 09:00 - Neurological Exam Sensorimotor examination: Present: intact Motor Examination: Present: other (Mild paresis to the right side, but no drift noted) Motor examination - right side: 4/5: deltoids, biceps, wrist flexion, wrist extension, photocopying machine operator, hip flexors, tibialis Anterior, quadriceps, toe extension (EHL) , plantarflexion Motor examination - left side: 5/5: deltoids, biceps, triceps, wrist flexion, wrist extension, hip flexors, photocopying machine operator, quadriceps, tibialis Anterior, toe extension (EHL), plantarflexion Sensation intact: Present: intact Posture: Present: other (None) Reflex and gait examination: other (No clous seen. Gait not assessed.) Mental Status Examination: Present: awake, alert, oriented to person, oriented to place, oriented to time, follows commands appropriately, answers questions appropriately, no agnosia, no aphasia, no aproxia Cranial nerve examination: Present: PERRL, EOMI, visual eisenberg intact, corneal reflexes brisk symmetrically, sensory to face intact, mastication intact, no facial asymmetry is present, no dysarthria, hearing is intact symmetrically, soft palate elevates bilaterally upon phonation, gag reflex intact, flexes SCM and trapezius muscles symmetrically with full power, tongue protrudes midline, no atrophy or facial fasiculations present Results - Laboratory Findings CBC and BMP: 11/15/16 04:24 11/15/16 04:24 Abnormal lab findings: Abnormal lab results RBC 3.49 M/mcL (4.19-5.50) L 11/15/16 04:24 Hgb 11.2 g/dL (12.9-16.9) L 11/15/16 04:24 Hct 33.2 % (37.5-50.1) L 11/15/16 04:24 MPV 8.8 fL (9.4-12.4) L 11/15/16 04:24 PT 28.0 Seconds (9.4-12.1) H 11/16/16 05:03 Glucose 102 mg/dL (70-99) H 11/15/16 04:24 POC Glucose 145 (58-89) H 11/15/16 20:05 Consult Discharge Plan - Plan Referrals: NO,PCP [Primary Care Provider] -
[2016-11-16 11:04] VITALS: BP 113/68
--- NOTE | 2016-11-16 12:46 | Discharge Summary ---
Date of Encounter: 11/16/16 Time of Encounter: 09:30 - Discharge Diagnosis (1) TIA (transient ischemic attack) Priority: Primary Status: Acute Comments: Head CT negative. Brain MRI negative for acute processes. Acute CVA ruled out. Patient with chronic left-sided weakness. Seen by neurology who recommended continuing current plan of care given that he is therapeutic on Coumadin. Carotid ultrasound negative. OT and PT recommended inpatient/swing bed placement however patient refusing. Patient also refusing home health services. Qualifiers: Transient cerebral ischemia type: unspecified Qualified Code(s): G45.9 - Transient cerebral ischemic attack, unspecified (2) Chest pain of uncertain etiology Priority: Primary Status: Acute Comments: Patient denies chest pain on examination. D-dimer negative. Troponins negative 4. Low suspicion for acute coronary syndrome. (3) Transient neurological symptoms Priority: Primary Status: Resolved (4) CVA (cerebral vascular accident) Priority: Secondary Status: Chronic Comments: No new focal neurological weaknesses. Left-sided weakness still present with mild expressive aphasia Qualifiers: CVA mechanism: unspecified Qualified Code(s): I63.9 - Cerebral infarction, unspecified (5) Weakness of left side of body Priority: Secondary Status: Chronic (6) CHF (congestive heart failure) Priority: Secondary Status: Chronic Comments: Echocardiogram from 08/29/15 revealing ejection fraction of 60% with moderate diastolic dysfunction. Patient denies shortness of breath above his norm and is euvolemic on examination. Chronic diastolic heart failure, no acute exacerbation. Qualifiers: Congestive heart failure type: diastolic Congestive heart failure chronicity: chronic Qualified Code(s): I50.32 - Chronic diastolic (congestive ) heart failure (7) CAD (coronary artery disease) Priority: Secondary Status: Chronic (8) COPD (chronic obstructive pulmonary disease) Priority: Secondary Status: Chronic Comments: No acute exacerbation Qualifiers: COPD type: unspecified COPD Qualified Code(s): J44.9 - Chronic obstructive pulmonary disease, unspecified (9) DM (diabetes mellitus) Priority: Secondary Status: Chronic Comments: Controlled at home with a recent A1c of 6.4%. Follow-up outpatient Qualifiers: Diabetes mellitus type: type 2 Diabetes mellitus complication status: with unspecified complications Diabetes mellitus intermediate card tender insulin use: without care home use Qualified Code(s): E11.8 - Type 2 diabetes mellitus with unspecified complications (10) Paroxysmal atrial fibrillation Priority: Secondary Status: Chronic Comments: Rate controlled, therapeutic on Coumadin (11) DVT prophylaxis Priority: Primary Status: Acute Comments: therapeutic on coumadin- INR 2.5 on day of discharge (12) HTN (hypertension) Priority: Secondary Status: Chronic Comments: Borderline hypertensive since arrival so his carvedilol was increased- normotensive at time of discharge. At home, patient is on lisinopril 20 mg twice a day, Imdur 30 mg daily, furosemide, carvedilol 12.5 mg twice a day. Recommend daily blood pressure checks at home, keeping a log, and following up outpatient - Discharge Medications Prescriptions: Carvedilol [Coreg] 25 mg PO BID #60 tablet Walker - Rollator [ROLLATOR] 1 each .ROUTE AD #1 each Home Medications: Albuterol Sulfate [Proair Hfa] 2 puff IH QID PRN 08/29/15 [History] Aspirin [Adult Low Dose Aspirin EC] 81 mg PO QAM 08/29/15 [History] Chlordiazepoxide [Librium] 25 mg PO BID 08/29/15 [History] Diphenoxylate/Atropine [Lomotil 2.5 mg/0.025 mg] 2 each PO TID PRN 08/29/15 [ History] Ergocalciferol (VITAMIN D2) [Vitamin D2 (50,000 UNIT)] 50,000 unit PO MOWE 08/28 [History] Furosemide [Lasix] 20 mg PO QAM 08/29/15 [History] Isosorbide MONOnitrate (24 HR) [Imdur] 30 mg PO QPM 08/29/15 [History] Lisinopril [Zestril] 20 mg PO BID 08/29/15 [History] Nitroglycerin [Nitrostat] 0.4 mg SL Q5M PRN 08/29/15 [History] [place]-3/Dha/Epa/Fish Oil [Fish Oil 1,000 mg Softgel] 2,000 mg PO BID 08/29/15 [ History] OxyCODONE/APAP 10/325 [Percocet 10/325 MG] 1 each PO Q6HR PRN 08/29/15 [History] Potassium Chloride [K-Tab ER] 20 meq PO QAM 08/29/15 [History] Venlafaxine HCl 100 mg PO BID 08/29/15 [History] metFORMIN [Glucophage] 500 mg PO QAM 08/29/15 [History] Simvastatin [Zocor] 40 mg PO HS #30 tablet 09/01/15 [Rx] Mupirocin [Bactroban Oint] 1 appl TP BID #1 tube 04/10/16 [Rx] Enoxaparin [Lovenox] 80 mg SQ QAM 08/15/16 [History] Furosemide [Lasix] 20 mg PO MOWEFR@1400 11/14/16 [History] Warfarin [Coumadin] 10 mg PO SUTUTHSA 11/14/16 [History] Warfarin [Coumadin] 12.5 mg PO MOWEFR 11/14/16 [History] Carvedilol [Coreg] 25 mg PO BID #60 tablet 11/16/16 [Rx] Walker - Rollator [ROLLATOR] 1 each .ROUTE AD #1 each 11/16/16 [Rx] Allergies/Adverse Reactions: Allergies morphine Allergy (Verified 11/14/16 14:43) Agitated naproxen [From Naprosyn] Allergy (Verified 11/14/16 14:43) Rash propoxyphene [From Darvon] Allergy (Verified 11/14/16 14:43) Rash ziprasidone [From Geodon] Allergy (Verified 11/14/16 14:43) Rash Procedures/tests Complete & Pending: Procedures Performed prior 72 hours Category Date Time Status MR head/brain wo con [MR] Routine MRI 11/15/16 07:56 Completed EV carotid duplex imaging BI Routine Y 11/15/16 10:26 Completed Date of admission: 11/14/16 18:36 Primary care physician: PCP NO Consults: 11/14/16 22:43 Consult to Neurology [CONS] Routine Consulting Provider: Neurology [facility] Reason for Consult: possible TIA Time Notified: 22:45 Call Completed: No Consult to Physical Therapy [CONS] Routine Comment: Evaluate, develop and implement POC Reason for Consult: falls- parkinson 11/15/16 13:25 Consult to Occupational Therapy [CONS] Routine Comment: Evaluate, develop and implement POC Reason for Consult: left hemiparesis Consult to Brick Tester [CONS] Routine Reason for SW Consult: may need HH/ECF. OT/PT pending Discharging clinician: Pau Benitez Anticipated date of discharge: 11/16/16 (refusing ECF and HH services) - Patient Status Disposition: Home, Self-Care Condition: Fair Functional capacity at discharge: uses cane/walker Overall status at discharge: patient is progressing back to baseline - Discharge Instructions Follow Up With: Uche Richard MD [Partnered Physician] - Additional Instructions: Follow-up with primary care provider within one to 2 weeks - Diet and Activity Activity: ambulate only with your walker, increase activity as tolerated Diet: diabetic diet, low fat, low cholesterol, low salt diet Hospital course: Mr. Vasquez is a 61 year old male with past medical history of aortic valve replacement bioprosthetic, hypertension, atrial fibrillation on Coumadin, Parkinson's disease, COPD, chronic chest pain, prior CVA with left-sided weakness, diabetes, chronic kidney disease. Patient presented to the emergency department chief complaint he woke up in the morning of presentation and he was crying and experiencing garbled speech as well as chest pain and shortness of breath as well as confusion and nausea. Patient stating the symptoms lasted approximately 10 minutes. Patient described the chest pain is midsternal heaviness that did not radiate. He was able to get up and eat breakfast and approximately an hour later, he stated his symptoms returned and again they resolved on their own. Workup in the emergency department unremarkable. Head CT negative. Patient was admitted to the hospitalist service for further evaluation and management. Brain MRI negative for acute processes. Acute CVA ruled out. Carotid ultrasound unremarkable. Troponins negative 4. D-dimer negative. Patient denied chest pain throughout this admission. Patient persisted with chronic left-sided weakness without any new focal neurological weakness is present. He was seen by neurology who recommended continuing his current plan of care given that he is therapeutic on Coumadin. He was seen and evaluated by occupational and physical therapy but the film recommended inpatient/swing bed. Patient refused ECF placement. He also refused home health services. Lengthy discussion between the patient, psychiatric social worker supervisor, and hospitalist with discussion of risks versus benefits of him choosing not to go inpatient rehabilitation or accept home health. A she is aware of the risks and still refuses ECF or home health. He states that he will see his primary care provider and sent these services up at a later date if his primary care provider thinks that it is necessary. He states that he still feels as if he is able to do a little bit, and does not want to accept any help until he is not able to do anything. Patient was on wavering in this viewpoint. He was given a prescription for a Rollator. His blood pressure was uncontrolled to his carvedilol dosage was increased and he was normotensive at time of discharge. He was discharged home in stable condition with close outpatient follow-up recommended. ITS Impressions Head CT 11/14/16 15:25 IMPRESSION: No acute intracranial abnormality. D/ / Cooper Gross MD / Cooper Gross MD Interpreting Provider: Cooper Gross MD Brain MRI 11/15/16 07:56 IMPRESSION: 1. No acute intracranial abnormality. No acute infarct. 2. Minimal chronic microvascular ischemic changes. 3. Left mastoid effusion. D/ / Alcon Skinner MD / Alcon Skinner MD Interpreting Provider: Alcon Skinner MD 11/15/16 21:30 - Vascular Preliminary by Jeanette Johnson [facility] Num: [id number] : 1955 Patient Age: 61 Carotid Bilateral; Normal carotid velocities noted bilaterally, minimal plaque noted bilaterally - Time Spent with Patient Total time spent providing and/or coordinating discharge services: - Constitutional Vitals: Temp Pulse Resp BP Pulse Ox 97.8 F 70 14 113/68 96 11/16/16 10:59 11/16/16 10:59 11/16/16 10:59 11/16/16 10:59 11/16/16 10:59 General appearance: Present: A&O X 3, pleasant, no acute distress, answers questions appropriately - Head Head exam: Present: atraumatic, normocephalic - Eye Eye exam: Present: PERRL, conjuntiva pink, sclera anicteric Pupils: Present: PERRL - Neck Neck exam general surgery: Present: supple, trachea midline. Absent: lymphadenopathy - Respiratory Respiratory exam: Present: CTAB. Absent: accessory muscle use, rales, respiratory distress, rhonchi, wheezes - Cardiovascular Cardiovascular exam: Present: RRR, +S1, +S2. Absent: diastolic murmur, gallop, rubs, systolic murmur - GI/Abdominal GI/Abdominal exam: Present: normal bowel sounds, soft, no peritoneal signs. Absent: distended, tenderness - Extremities Exam Extremities exam: Present: warm, radial pulses palpable and symetrical. Absent : calf tenderness, cyanotic, pedal edema - Neurological Exam Neurological exam: Present: alert, CN II-XII intact, oriented X3, no focal deficits, speech deficit (mild expressive aphasia- intelligible). Absent: strengths equal and symetr throughout, pronater drift, facial droop - Skin Skin exam: Present: dry, intact, normal color, warm
[2016-11-16] MEDS ORDERED: *HR* Warfarin 7.5 MG TABLET PO ONE (18:00)
--- NOTE | 2016-11-17 14:18 | Carotid Imaging Report ---
Carotid Duplex Patient Name:Camron Vasquez Order Number:[id number] Procedure Date:11/15/2016 Date:1955ge:61 yrs Gender:Male Rt.BP:125 / 74 mmHgHeart Rate: Location:[facility] Room #: 3B32 Animal Ride Manager:Jeanette Johnson, [facility] Referring MD:Nicolás Saucedo MD judge:None Reading MD:Dickson Ferguson MD , FACS Primary Indications:TIA Risk Factors Yes/No Hypertension Yes Diabetes Yes Hypercholesterolemia Yes Hx of CVA Yes Impressions: Findings: Bilateral carotid systems are essentially normal. Findings Carotid Duplex: Right: The right proximal common carotid artery has a PSV of 72 cm/s and a EDV of 16 cm/s. The right mid common carotid artery has a PSV of 83 cm/s and a EDV of 22 cm/s. The right distal common carotid artery has a PSV of 72 cm/s and a EDV of 19 cm/s. The right bifurcation has a PSV of 63 cm/s and a EDV of 19 cm/s. The right proximal internal carotid artery has a PSV of 78 cm/s and a EDV of 22 cm/s. The right mid internal carotid artery has a PSV of 68 cm/s and a EDV of 24 cm/s. The right distal internal carotid artery has a PSV of 75 cm/s and a EDV of 27 cm/s. The right eca has a PSV of 142 cm/s and a EDV of 15 cm/s. The right vertebral artery has a PSV of 42 cm/s and a EDV of 14 cm/s. There is antegrade spectral Doppler flow patterns. Left: The left proximal common carotid artery has a PSV of 98 cm/s and a EDV of 22 cm/s. The left mid common carotid artery has a PSV of 86 cm/s and a EDV of 20 cm/s. The left distal common carotid artery has a PSV of 93 cm/s and a EDV of 25 cm/s. The left bifurcation has a PSV of 84 cm/s and a EDV of 24 cm/s. The left proximal internal carotid artery has a PSV of 71 cm/s and a EDV of 20 cm/s. The left mid internal carotid artery has a PSV of 94 cm/s and a EDV of 32 cm/s. The left distal internal carotid artery has a PSV of 90 cm/s and a EDV of 30 cm/s. The left eca has a PSV of 102 cm/s and a EDV of 13 cm/s. The left vertebral artery has a PSV of 44 cm/s and a EDV of 16 cm/s. There is antegrade spectral Doppler flow patterns. Carotid Results Right PSV EDV Assessment Proximal CCA 72 16 Mid CCA 83 22 Distal CCA 72 19 Bifurcation 63 19 Proximal ICA 78 22 Mid ICA 68 24 Distal ICA 75 27 ECA 142 15 Vertebral Artery 42 14 Antegrade Flow Left PSV EDV Assessment Proximal CCA 98 22 Mid CCA 86 20 Distal CCA 93 25 Bifurcation 84 24 Proximal ICA 71 20 Mid ICA 94 32 Distal ICA 90 30 ECA 102 13 Vertebral Artery 44 16 Antegrade Flow Ratio's Right ICA/CCA Ratio: 0.94 ICA/CCA Values: 78/83 Left ICA/CCA Ratio: 1.09 ICA/CCA Values: 94/86 Updated by Dickson Ferguson MD, FACS on 11/17/2016 2:11:45 PM Dickson Ferguson MD electronically signed on 11/17/2016 2:12:07 PM with status of Final
[2016-11-19] MEDS ORDERED: *HR* Warfarin 5 MG TABLET PO SCH (18:00)
== END 2016-11-16 14:50 | disposition home or self-care (01) ==
LOC: 3BNU 15:04 → EMEROO 15:04 → 3BNU 19:19
PROVIDERS: ADMIT Nurse Practitioner Acute Care; ATTEND Nurse Practitioner Family

== ENCOUNTER 2017-09-20 15:11 | Inpatient (IN) ==
--- NOTE | 2017-09-20 16:03 | Emergency Department Note ---
Disposition Clinical Impression: Chest pain Qualifiers: Chest pain type: unspecified Qualified Code(s): R07.9 - Chest pain, unspecified Disposition: Admitted As Inpatient Condition: Good Time of Disposition: 17:20 Chest Pain HPI - General Chief Complaint: ED Chest Pain Stated Complaint: Chest Pain Time Seen by Provider: 09/20/17 15:15 Source: EMS Mode of arrival: EMS Limitations: no limitations, altered mental status Vital Signs Reviewed: Yes Nursing Notes Reviewed: Yes - History of Present Illness HPI Narrative: Patient presents to ED with the chief complaint of chest pain. Patient has a history of NV with stent placement several years ago. Reports that he is actually scheduled for an elective heart catheter in 6 days. States that he has had increasing chest pain over the last several weeks. Reports a particularly bad episode today that felt exactly like last time he had a heart attack. Symptom onset was at 2 PM today while at rest. States that it was heavy pressure in the central part of his chest with radiation to his left arm. He also had a sharp stabbing component, but he states makes him "jerked forward" states that he got nauseated and sweaty. No vomiting. Also, some shortness of breath. No abdominal pain, vomiting, diarrhea, rash, pain or swelling in his legs. Family reports increased agitation over the last few weeks that has not been responsive to psychiatric medication changes. Severity scale (1-10): 6 - Related Data Home Medications Medication Instructions Recorded Confirmed Albuterol Sulfate [Proair Hfa] 2 puff IH QID PRN 08/29/15 09/20/17 Aspirin [Adult Low Dose Aspirin EC] 162 mg PO QAM 08/29/15 09/20/17 Chlordiazepoxide [Librium] 25 mg PO DAILY 08/29/15 09/20/17 Diphenoxylate/Atropine [Lomotil 2 each PO TID PRN 08/29/15 09/20/17 2.5 mg/0.025 mg] Ergocalciferol (VITAMIN D2) 50,000 unit PO MOWE 08/29/15 09/20/17 [Vitamin D2 (50,000 UNIT)] Furosemide [Lasix] 20 mg PO QAM 08/29/15 09/20/17 Isosorbide MONOnitrate (24 HR) 30 mg PO QPM 08/29/15 09/20/17 [Imdur] Lisinopril [Zestril] 20 mg PO BID 08/29/15 09/20/17 Nitroglycerin [Nitrostat] 0.4 mg SL Q5M PRN 08/29/15 09/20/17 [place]-3/Dha/Epa/Fish Oil [Fish Oil 2,000 mg PO BID 08/29/15 09/20/17 1,000 mg Softgel] OxyCODONE/APAP 10/325 [Percocet 1 each PO Q6HR PRN 08/29/15 09/20/17 10/325 MG] Potassium Chloride [K-Tab ER] 20 meq PO QAM 08/29/15 09/20/17 metFORMIN [Glucophage] 500 mg PO QAM 08/29/15 09/20/17 Chlordiazepoxide [Librium] 50 mg PO HS 09/20/17 09/20/17 Memantine HCl/Donepezil HCl 1 cap PO DAILY 09/20/17 09/20/17 [Namzaric 28 mg-10 mg Capsule] Venlafaxine HCl [Venlafaxine HCl 150 mg PO DAILY 09/20/17 09/20/17 ER] hydrOXYzine HCl [Hydroxyzine HCl] 25 mg PO DAILY 09/20/17 09/20/17 lamoTRIgine [Lamictal] 100 mg PO DAILY 09/20/17 09/20/17 Previous Rx's Medication Instructions Recorded Simvastatin [Zocor] 40 mg PO HS #30 tablet 09/01/15 Carvedilol [Coreg] 25 mg PO BID #60 tablet 11/16/16 Allergies Allergy/AdvReac Type Severity Reaction Status Date / Time morphine Allergy Agitated Verified 09/20/17 17:27 naproxen [From Naprosyn] Allergy Rash Verified 09/20/17 17:27 propoxyphene [From Darvon] Allergy Rash Verified 09/20/17 17:27 ziprasidone [From Geodon] Allergy Rash Verified 09/20/17 17:27 Review of Systems: As reviewed in the HPI. All other systems reviewed are negative or normal. Chest Pain PMH - Past Medical History Medical history: Reports: aortic aneurysm, asthma, atrial fibrillation, cancer, COPD, CVA, DVT, diabetes, hyperlipidemia, hypertension, myocardial infarction, renal disease Surgical history: Reports: angioplasty/stent, appendectomy, cancer surgery, cholecystectomy, herniorrhaphy, orthopedic, other, sinus surgery, other Psychiatric history: Reports: anxiety, depression - Social History Smoking Status: Never smoker Alcohol use: Reports: none Drug use: Reports: none Physical Exam - General Limitations: no limitations, altered mental status General appearance: alert, in no apparent distress - Head Head exam: atraumatic, normocephalic, normal inspection - Eye Eye exam: Present: normal appearance, PERRL, EOMI, other (Slight left-sided ptosis, chronic) - ENT ENT exam: normal exam, normal oropharynx, mucous membranes moist - Neck Neck exam: Present: normal inspection, full ROM, trachea midline - Chest Chest inspection: Present: normal inspection, symmetric chest wall rise - Respiratory Respiratory exam: Present: normal lung sounds bilaterally - Cardiovascular Cardiovascular exam: Present: regular rate, normal rhythm, normal heart sounds - Abdominal Exam Abdominal exam: Present: soft, Non-Tender. Absent: tenderness, distention, guarding, rebound, rigidity - Extremities Exam Extremities exam: Present: normal inspection, full ROM. Absent: tenderness, pedal edema - Neurological Exam Neurological exam: Present: alert, oriented X3 - Psychiatric Psychiatric exam: Present: normal affect, normal mood - Skin Skin exam: Present: warm, dry, intact, normal color Course Course Narrative: Patient presenting with his anginal equivalent. Labs, EKG, chest x-ray ordered. Likely admission. States has a stress test ordered for next week after an abnormal stress test on the eighth of this month from his roundhouse worker. - Reevaluation(s) Reevaluation #1: Patient denied being on blood thinners, but his medical record shows that he is on Coumadin, so I do not. Coags. Troponin is negative. EKG is normal and not acute. Admitted to the hospitalist service. While cardiology see him in the morning and likely heart catheter versus keep outpatient appointment for next week. Vital Signs Temperature 97.8 F 09/20/17 15:16 Pulse Rate 60 09/20/17 15:16 Respiratory Rate 18 09/20/17 15:16 Blood Pressure 151/88 09/20/17 15:16 O2 Sat by Pulse Oximetry 98 09/20/17 15:16 Temperature 98.5 F 09/20/17 21:17 Pulse Rate 58 09/20/17 21:17 Respiratory Rate 16 09/20/17 21:17 Blood Pressure 152/78 09/20/17 21:17 O2 Sat by Pulse Oximetry 97 09/20/17 21:17 Oxygen Delivery Oxygen Delivery Nasal Cannula Chest Pain - Medical Records Medical records reviewed: Yes I reviewed the patient's medical records. - Lab Data Lab results reviewed: Yes I reviewed the patient's lab results. Result diagrams: 09/20/17 16:11 09/20/17 16:11 Lab Results 09/20/17 09/20/17 09/20/17 Range/Units 16:11 16:11 16:11 WBC 5.2 (4.3-11.1) K/mcL RBC 3.55 L (4.19-5.50) M/mcL Hgb 11.6 L (12.9-16.9) g/dL Hct 33.4 L (37.5-50.1) % MCV 94.1 (83.0-100.0) fL MCH 32.7 (28.0-33.3) pg MCHC 34.7 (31.6-35.5) g/dL RDW 12.4 (11.5-14.5) % Plt Count 221 (140-400) K/mcL MPV 8.6 L (9.4-12.4) fL Immature Gran % 1.2 (0-4) % Seg Neutrophils % 55.8 % Lymphocytes % 29.2 % Monocytes % 10.1 % Eosinophils % 2.3 % Basophils % 1.4 % Neutrophils # 2.9 (1.6-8.9) K/mcL Lymphocytes # 1.5 (0.6-4.6) K/mcL Monocytes # 0.5 (0.0-1.3) K/mcL Eosinophils # 0.1 (0.0-0.6) K/mcL Basophils # 0.1 (0.0-0.2) K/mcL PT 11.1 (9.4-12.1) Seconds INR 1.0 APTT 30.2 (26.0-36.0) Seconds Sodium 139 (136-145) mEq/L Potassium 4.0 (3.5-5.1) mEq/L Chloride 107 (98-107) mEq/L Carbon Dioxide 25 (23-29) mEq/L BUN 15 (8-23) mg/dL Creatinine 0.92 (0.70-1.30) mg/dL Est GFR ( Amer) > 60 (> 60) Est GFR (Non-Af Amer) > 60 (> 60) BUN/Creatinine Ratio 16 (6-26) Glucose 112 H (70-105) mg/dL Calculated Osmolality 290 (280-300) Calcium 9.6 (8.6-10.3) mg/dL Troponin I < 0.03 (< 0.04) ng/mL - Radiology Data Radiology results reviewed: Yes I reviewed the patient's radiology results. - EKG Data EKG attestation: Yes I reviewed and interpreted this EKG. EKG results narrative: Sinus bradycardia, rate 56, [place] interval 190, QRS 90, QTC 406, indeterminate axis , no acute ischemic changes Attestation Statement - Attestation Attestation: I examined this patient and my medical decision-making was reviewed with the Resident Physician. I agree with the documented findings, disposition and treatment plan as described except to the extent set forth below.
[2017-09-20 16:37] LABS: Basophils # 0.1 K/mcL (0.0-0.2); Basophils % 1.4 %; Eosinophils # 0.1 K/mcL (0.0-0.6); Eosinophils % 2.3 %; Hematocrit 33.4 % (37.5-50.1); Hemoglobin 11.6 g/dL (12.9-16.9); Immature Granulocytes % 1.2 % (0-4); Lymphocytes # 1.5 K/mcL (0.6-4.6); Lymphocytes % 29.2 %; Mean Corpuscular HGB Conc 34.7 g/dL (31.6-35.5); Mean Corpuscular Hemoglobin 32.7 pg (28.0-33.3); Mean Corpuscular Volume 94.1 fL (83.0-100.0); Mean Platelet Volume 8.6 fL (9.4-12.4); Monocytes # 0.5 K/mcL (0.0-1.3); Monocytes % 10.1 %; Neutrophils # 2.9 K/mcL (1.6-8.9); Platelet Count 221 K/mcL (140-400); Red Blood Count 3.55 M/mcL (4.19-5.50); Red Cell Distribution Width 12.4 % (11.5-14.5); Segmented Neutrophils % 55.8 %
[2017-09-20 16:58] LABS: Troponin I < 0.03 ng/mL (< 0.04)
[2017-09-20 17:00] LABS: BUN/Creatinine Ratio 16 (6-26); Blood Urea Nitrogen 15 mg/dL (8-23); Calcium 9.6 mg/dL (8.6-10.3); Carbon Dioxide 25 mEq/L (23-29); Chloride 107 mEq/L (98-107); Glucose 112 mg/dL (70-105); Osmolality,Calculated 290 (280-300); Sodium 139 mEq/L (136-145); eGFR For African Americans > 60 (> 60); eGFR For Non-African Americans > 60 (> 60)
[2017-09-20] MEDS ORDERED: Nitroglycerin 0.4 MG TAB.SUBL SL PRN (17:12)
[2017-09-20] MEDS ORDERED: Aspirin 325 MG TABLET PO ONE (17:19)
[2017-09-20 17:38] LABS: Prothrombin Time 11.1 Seconds (9.4-12.1)
[2017-09-20 17:41] LABS: Activated Partial Thrombo Time 30.2 Seconds (26.0-36.0)
--- NOTE | 2017-09-20 20:50 | Internal Med History&Physical ---
<Scottie Valadez - Last Filed: 09/20/17 22:33> Date of Encounter: 09/20/17 Time of Encounter: 20:50 Assessment and Plan (1) Chest pain Current visit: Yes Status: Acute The patient is admitted for further evaluation of chest pain. Nuclear stress test 09/05/17 Small size, mild to moderate intensity primarily fixed stress perfusion defect involving the inferior apical wall. Wall motion is normal - no evidence for prior infarct. There is mild worsening of perfusion defect during stress and which ischemia cannot be excluded. Pharmacologic stress EKG is negative for ischemia at the level of heart rate achieved. No appreciable change from baseline EKG. Gated EF equal 60%. 09/05/16: Echo Impressions: LVEF 55%. Mild-moderate concentric left ventricular hypertrophy. Moderate left ventricular diastolic dysfunction. Normal right ventricular structure and function. Normal functioning bioprosthetic aortic valve. Mild mitral regurgitation. No pulmonary hypertension. EKG without ischemic findings. Chest pain-free at time of evaluation. Continue daily aspirin as well as sublingual nitroglycerin as needed for chest pain recurrence. Initial troponin negative, serial troponins every 6 hours. Heparin gtt Echo ordered Consultation cardiology given prior abnormal stress test and recurrence of chest pain. Continuous telemetry. Qualifiers: Chest pain type: unspecified Qualified Code(s): R07.9 - Chest pain, unspecified (2) CHF (congestive heart failure) Current visit: No Status: Chronic 09/05/16: Echo Impressions: LVEF 55%. Mild-moderate concentric left ventricular hypertrophy. Moderate left ventricular diastolic dysfunction. Normal right ventricular structure and function. Normal functioning bioprosthetic aortic valve. Mild mitral regurgitation. No pulmonary hypertension. Continue home lasix dose 20mg daily (3) COPD (chronic obstructive pulmonary disease) Current visit: No Status: Chronic Continuous pulse oximetry Supplemental O2 PRN, goal sat >90% Albuterol 2 puff PRN Qualifiers: COPD type: unspecified COPD Qualified Code(s): J44.9 - Chronic obstructive pulmonary disease, unspecified (4) HTN (hypertension) Current visit: No Status: Chronic Continue home Coreg, Lisinopril and Imdur. Qualifiers: Hypertension type: essential hypertension Qualified Code(s): I10 - Essential (primary) hypertension (5) DM (diabetes mellitus) Current visit: No Status: Chronic Glucose 112 upon admission Hold metformin in anticipation of potential [facility] Low dose SSI Qualifiers: Diabetes mellitus type: type 2 Diabetes mellitus dedicated intermodal truck driver insulin use: without dedicated intermodal truck driver use Diabetes mellitus complication status: with unspecified complications Qualified Code(s): E11.8 - Type 2 diabetes mellitus with unspecified complications (6) Paroxysmal atrial fibrillation Current visit: No Status: Chronic Currently sinus rhythm Telemetry Continue Coreg 25mg BID (7) CAD (coronary artery disease) Current visit: No Status: Chronic Continue home Coreg, Lisinopril and Imdur Qualifiers: Coronary Disease-Associated Artery/Lesion type: [place] artery [place] vs. transplanted heart: [place] heart Associated angina: without angina Qualified Code(s): I25.10 - Atherosclerotic heart disease of [place] coronary artery without angina pectoris (8) DVT prophylaxis Current visit: No Status: Acute on Heparin gtt Internal Medicine - H&P: HPI Chief complaint: Chest pain Admitted From: Emergency Dept Plans for Post Hospital Care: Home History of present illness: Mr. Vasquez is a 62 year old male with a past medical history of hypertension, diabetes, paroxysmal atrial fibrillation, CHF, status post aortic prosthetic valve placement in 2011 at [facility] who presented to the emergency department on 09/20/17 with a chief complaint of chest pain. Patient reports he was at his baseline until around 3 PM when he was at rest sitting down and experienced acute chest pain. Reports the pain was substernal without radiation and described as sharp. He reports associated shortness of breath as well as diaphoresis during the events. He took one nitroglycerin which she reports does ease the pain. 5 minutes later he took an additional nitroglycerin and called EMS. He reports that he recently had a stress test on the eighth of this month which showed an abnormality and he is scheduled to have a left heart catheterization next week. He follows with cardiology here with Dr. Baltazar. The patient reports these symptoms have been going on for a few months. He received an additional nitroglycerin in the emergency department with resolution of his chest pain. He is currently on aspirin. He states that he was previously on Coumadin however he was taken off nearly one year ago but he is unclear as to why. He also remarks that he has had 2 strokes in the past leaving weakness of both sides of his body. He does report that he follows with neurology here as well. At the time of evaluation in the emergency department the patient is symptom-free. Past Med Surg Social Fam HX - Past Medical History Attestation: Yes The following information was validated with the patient. Source: patient Medical history: aortic aneurysm, asthma, atrial fibrillation, cancer, COPD, CVA , DVT, diabetes, hyperlipidemia, hypertension, myocardial infarction, renal disease Psychiatric history: anxiety, depression - Past Surgical History Surgical History: angioplasty/stent, appendectomy, cancer surgery, cholecystectomy, herniorrhaphy, orthopedic, other, sinus surgery, other - Social History Smoking Status: Never smoker Smokeless Tobacco Status: No Alcohol use: none Drug use: none - Family History Mother Family Member Ethnicity: Non- Living Status: Hx Family Cardiac Disorders: No Hx Family Respiratory Disorders: No Hx Family Cancer: Yes (Lung cancer) Hx Family GI Disorders: No Hx Family Endocrine Disorder: No Hx Family Neuromuscular Disorders: No Hx Family Neurologic Disorders: No Hx Family HEENT Disorders: No Hx Family Autoimmune Disorders: No Internal Medicine - H&P: Meds Albuterol Sulfate [Proair Hfa] 2 puff IH QID PRN 08/29/15 [History] Aspirin [Adult Low Dose Aspirin EC] 162 mg PO QAM 08/29/15 [History] Chlordiazepoxide [Librium] 25 mg PO DAILY 08/29/15 [History] Diphenoxylate/Atropine [Lomotil 2.5 mg/0.025 mg] 2 each PO TID PRN 08/29/15 [ History] Ergocalciferol (VITAMIN D2) [Vitamin D2 (50,000 UNIT)] 50,000 unit PO MOWE 08/28 [History] Furosemide [Lasix] 20 mg PO QAM 08/29/15 [History] Isosorbide MONOnitrate (24 HR) [Imdur] 30 mg PO QPM 08/29/15 [History] Lisinopril [Zestril] 20 mg PO BID 08/29/15 [History] Nitroglycerin [Nitrostat] 0.4 mg SL Q5M PRN 08/29/15 [History] [place]-3/Dha/Epa/Fish Oil [Fish Oil 1,000 mg Softgel] 2,000 mg PO BID 08/29/15 [ History] OxyCODONE/APAP 10/325 [Percocet 10/325 MG] 1 each PO Q6HR PRN 08/29/15 [History] Potassium Chloride [K-Tab ER] 20 meq PO QAM 08/29/15 [History] metFORMIN [Glucophage] 500 mg PO QAM 08/29/15 [History] Simvastatin [Zocor] 40 mg PO HS #30 tablet 09/01/15 [Rx] Carvedilol [Coreg] 25 mg PO BID #60 tablet 11/16/16 [Rx] Chlordiazepoxide [Librium] 50 mg PO HS 09/20/17 [History] Memantine HCl/Donepezil HCl [Namzaric 28 mg-10 mg Capsule] 1 cap PO DAILY [History] Venlafaxine HCl [Venlafaxine HCl ER] 150 mg PO DAILY 09/20/17 [History] hydrOXYzine HCl [Hydroxyzine HCl] 25 mg PO DAILY 09/20/17 [History] lamoTRIgine [Lamictal] 100 mg PO DAILY 09/20/17 [History] 3 Allergy/AdvReac Type Severity Reaction Status Date / Time morphine Allergy Agitated Verified 09/20/17 17:27 naproxen [From Naprosyn] Allergy Rash Verified 09/20/17 17:27 propoxyphene [From Darvon] Allergy Rash Verified 09/20/17 17:27 ziprasidone [From Geodon] Allergy Rash Verified 09/20/17 17:27 All Systems PM: A 10-system review of systems was performed and is negative for pertinent findings except as documented above in the HPI. - Constitutional Constitutional: as per HPI, no fever(s) - EENT Eyes: as per HPI Ears: as per HPI Nose, mouth and throat: as per HPI - Breasts Breasts: as per HPI - Cardiovascular Cardiovascular ROS IM: as per HPI, chest pain, diaphoresis, dyspnea - Respiratory Respiratory: as per HPI, dyspnea - Gastrointestinal Gastrointestinal: as per HPI, no nausea, no vomiting - Genitourinary Genitourinary ROS male: as per HPI - Musculoskeletal Musculoskeletal ROS IM: as per HPI - Integumentary Integumentary IM: as per HPI - Neurological Neurological ROS: as per HPI, no dizziness, no vertigo, no weakness - Psychiatric Psychiatric: as per HPI - Endocrine Endocrine IM: as per HPI - Hematologic/Lymphatic Hematologic/Lymphatic: as per HPI - Allergic/Immunologic Allergic/Immunologic: as per HPI - Constitutional Vitals: Temp Pulse Resp BP Pulse Ox 97.8 F 55 16 138/88 98 09/20/17 15:16 09/20/17 18:33 09/20/17 20:34 09/20/17 20:34 09/20/17 18:33 General appearance: Present: A&O X 3, pleasant, no acute distress, answers questions appropriately - Head Head exam: Present: atraumatic, normal inspection, normocephalic - Eye Eye exam: Present: normal appearance - ENT ENT exam: Present: mucous membranes moist, normal exam - Neck Neck exam general surgery: Present: full ROM - Respiratory Respiratory exam: Present: CTAB. Absent: prolonged expiratory phase, respiratory distress - Cardiovascular Cardiovascular exam: Present: RRR, +S1, +S2, systolic murmur - GI/Abdominal GI/Abdominal exam: Present: soft. Absent: distended, guarding, tenderness - Extremities Exam Extremities exam: Present: full ROM, normal inspection, pedal edema (1+ bilateral lower extremity edema) - Neurological Exam Neurological exam: Present: alert, oriented X3, no focal deficits - Skin Skin exam: Present: dry, intact Internal Med - H&P Results - Labs CBC & Chem 7: 09/20/17 16:11 09/20/17 16:11 - EKG Data -: EKG Interpreted by Myself (EKG demonstrates sinus bradycardia with rate of [address]-T wave change) <Yas Browne - Last Filed: 09/20/17 22:38> Date of Encounter: 09/20/17 Internal Medicine - H&P: HPI History of present illness: Mr. Vasquez is a 62 year old male All Systems PM: A 10-system review of systems was performed and is negative for pertinent findings except as documented above in the HPI. - Constitutional Vitals: Temp Pulse Resp BP Pulse Ox 98.5 F 58 16 152/78 97 09/20/17 21:17 09/20/17 21:17 09/20/17 21:17 09/20/17 21:17 09/20/17 21:17 Internal Med - H&P Results - Labs CBC & Chem 7: 09/20/17 16:11 09/20/17 16:11 Labs: Cardiac Enzymes 09/20/17 Range/Units 21:40 Troponin I < 0.03 (< 0.04) ng/mL - Attending Attestation Patient was examined personally by me and reviewed the note done by resident. Initially patient has 10 x 10 chest pain associated with diaphoresis in the ER aspirin and nitroglycerin given and it came down to 3 x 10. Patient is full code. Considering multiple cardiac risk factor and ongoing chest pain started cardiac weight-based heparin drip. Cardiology consultation. Most likely he needs heart catheter tomorrow and it was already scheduled for this week. Patient also has history of TIA or questionable CVA 2 TIA with minimal left- sided weakness
[2017-09-20] MEDS ORDERED: Acetaminophen 325 MG TABLET PO PRN (21:15)
[2017-09-20] MEDS ORDERED: Naloxone 0.4 MG/ML INJ IVP PRN (21:15)
[2017-09-20] MEDS ORDERED: *HR* OxyCODONE/APAP 10/325 TABLET PO PRN (21:21)
[2017-09-20] MEDS ORDERED: *HR* Heparin 5,000 UNIT/ML VIAL IVP PRN (22:16)
[2017-09-20] MEDS ORDERED: *HR* Heparin 5,000 UNIT/ML VIAL IVP ONE (22:16)
--- NOTE | 2017-09-20 22:18 | Emergency Department Note ---
Disposition Clinical Impression: Chest pain Qualifiers: Chest pain type: unspecified Qualified Code(s): R07.9 - Chest pain, unspecified Disposition: Admitted As Inpatient Condition: Good General Adult HPI - General Chief complaint: ED Chest Pain Stated complaint: Chest Pain Time Seen by Provider: 09/20/17 15:15 Source: EMS Mode of arrival: EMS Limitations: no limitations, altered mental status Nursing Notes Reviewed: Yes Vital Signs Reviewed: Yes - History of Present Illness HPI Narrative: 62-year-old male presents ED because of chest pain. He has had several episodes of intermittent chest pain to the morning and afternoon prompting him to come to the emergency department. Denies associated dyspnea. No diaphoresis. He has had similar pain in the past with previous coronary syndrome. No fevers or chills. No productive cough. 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 Onset (ago): hour(s) Location: chest Radiation: non-radiation Pain Severity: moderate Pain Scale: 4 Quality: sharp Consistency: intermittent - Related Data Home Medications Medication Instructions Recorded Confirmed Albuterol Sulfate [Proair Hfa] 2 puff IH QID PRN 08/29/15 09/20/17 Aspirin [Adult Low Dose Aspirin EC] 162 mg PO QAM 08/29/15 09/20/17 Chlordiazepoxide [Librium] 25 mg PO DAILY 08/29/15 09/20/17 Diphenoxylate/Atropine [Lomotil 2 each PO TID PRN 08/29/15 09/20/17 2.5 mg/0.025 mg] Ergocalciferol (VITAMIN D2) 50,000 unit PO MOWE 08/29/15 09/20/17 [Vitamin D2 (50,000 UNIT)] Furosemide [Lasix] 20 mg PO QAM 08/29/15 09/20/17 Isosorbide MONOnitrate (24 HR) 30 mg PO QPM 08/29/15 09/20/17 [Imdur] Lisinopril [Zestril] 20 mg PO BID 08/29/15 09/20/17 Nitroglycerin [Nitrostat] 0.4 mg SL Q5M PRN 08/29/15 09/20/17 [place]-3/Dha/Epa/Fish Oil [Fish Oil 2,000 mg PO BID 08/29/15 09/20/17 1,000 mg Softgel] OxyCODONE/APAP 10/325 [Percocet 1 each PO Q6HR PRN 08/29/15 09/20/17 10/325 MG] Potassium Chloride [K-Tab ER] 20 meq PO QAM 08/29/15 09/20/17 metFORMIN [Glucophage] 500 mg PO QAM 08/29/15 09/20/17 Chlordiazepoxide [Librium] 50 mg PO HS 09/20/17 09/20/17 Memantine HCl/Donepezil HCl 1 cap PO DAILY 09/20/17 09/20/17 [Namzaric 28 mg-10 mg Capsule] Venlafaxine HCl [Venlafaxine HCl 150 mg PO DAILY 09/20/17 09/20/17 ER] hydrOXYzine HCl [Hydroxyzine HCl] 25 mg PO DAILY 09/20/17 09/20/17 lamoTRIgine [Lamictal] 100 mg PO DAILY 09/20/17 09/20/17 Previous Rx's Medication Instructions Recorded Simvastatin [Zocor] 40 mg PO HS #30 tablet 09/01/15 Carvedilol [Coreg] 25 mg PO BID #60 tablet 11/16/16 Allergies Allergy/AdvReac Type Severity Reaction Status Date / Time morphine Allergy Agitated Verified 09/20/17 17:27 naproxen [From Naprosyn] Allergy Rash Verified 09/20/17 17:27 propoxyphene [From Darvon] Allergy Rash Verified 09/20/17 17:27 ziprasidone [From Geodon] Allergy Rash Verified 09/20/17 17:27 All systems ED: reviewed and negative except as stated. Constitutional: Denies: weakness Cardiovascular: Reports: chest pain Respiratory: Denies: dyspnea Past Medical History - Past Medical History Attestation: Yes The following information was validated with the patient. Medical history: Reports: aortic aneurysm, asthma, atrial fibrillation, cancer, COPD, CVA, DVT, diabetes, hyperlipidemia, hypertension, myocardial infarction, renal disease Surgical history: Reports: angioplasty/stent, appendectomy, cancer surgery, cholecystectomy, herniorrhaphy, orthopedic, other, sinus surgery, other Psychiatric history: Reports: anxiety, depression - Social History Smoking Status: Never smoker Smokeless Tobacco Status: No Alcohol use: Reports: none Drug use: Reports: none Physical Exam - General Limitations: no limitations, altered mental status General appearance: alert, in no apparent distress - Chest Chest inspection: Present: tenderness (Palpation of the left chest reproduces his presenting pain.) Course Course Narrative: Patient presents with left-sided chest pain without radiation. Pain is very reproducible. However, patient reports that this is identical to the pain he had with previous CT. Given his recent failed stress test and plans for urgent cardiac catheterization he will be admitted for closer monitoring and further evaluation. Vital Signs Temperature 97.8 F 09/20/17 15:16 Pulse Rate 60 09/20/17 15:16 Respiratory Rate 18 09/20/17 15:16 Blood Pressure 151/88 09/20/17 15:16 O2 Sat by Pulse Oximetry 98 09/20/17 15:16 Temperature 98.5 F 09/20/17 21:17 Pulse Rate 58 09/20/17 21:17 Respiratory Rate 16 09/20/17 21:17 Blood Pressure 152/78 09/20/17 21:17 O2 Sat by Pulse Oximetry 97 09/20/17 21:17 Oxygen Delivery Oxygen Delivery Nasal Cannula Medical Decision Making - Lab Data Result diagrams: 09/20/17 16:11 09/20/17 16:11 Lab Results 09/20/17 09/20/17 09/20/17 Range/Units 16:11 16:11 16:11 WBC 5.2 (4.3-11.1) K/mcL RBC 3.55 L (4.19-5.50) M/mcL Hgb 11.6 L (12.9-16.9) g/dL Hct 33.4 L (37.5-50.1) % MCV 94.1 (83.0-100.0) fL MCH 32.7 (28.0-33.3) pg MCHC 34.7 (31.6-35.5) g/dL RDW 12.4 (11.5-14.5) % Plt Count 221 (140-400) K/mcL MPV 8.6 L (9.4-12.4) fL Immature Gran % 1.2 (0-4) % Seg Neutrophils % 55.8 % Lymphocytes % 29.2 % Monocytes % 10.1 % Eosinophils % 2.3 % Basophils % 1.4 % Neutrophils # 2.9 (1.6-8.9) K/mcL Lymphocytes # 1.5 (0.6-4.6) K/mcL Monocytes # 0.5 (0.0-1.3) K/mcL Eosinophils # 0.1 (0.0-0.6) K/mcL Basophils # 0.1 (0.0-0.2) K/mcL PT 11.1 (9.4-12.1) Seconds INR 1.0 APTT 30.2 (26.0-36.0) Seconds Sodium 139 (136-145) mEq/L Potassium 4.0 (3.5-5.1) mEq/L Chloride 107 (98-107) mEq/L Carbon Dioxide 25 (23-29) mEq/L BUN 15 (8-23) mg/dL Creatinine 0.92 (0.70-1.30) mg/dL Est GFR ( Amer) > 60 (> 60) Est GFR (Non-Af Amer) > 60 (> 60) BUN/Creatinine Ratio 16 (6-26) Glucose 112 H (70-105) mg/dL Calculated Osmolality 290 (280-300) Calcium 9.6 (8.6-10.3) mg/dL Troponin I < 0.03 (< 0.04) ng/mL
[2017-09-20] MEDS ORDERED: Heparin 25,000 UNIT/500 ML D5W 25,000 UNIT/500 ML BAG IVC SCH (22:30)
[2017-09-20] MEDS ORDERED: D5% in Water 1,000 ML IVC PRN (22:31)
[2017-09-20] MEDS ORDERED: Dextrose Gel 15 GM/37.5 ML TUBE PO PRN ×2 (22:31)
[2017-09-20] MEDS ORDERED: *HR* Dextrose 50 % in Water (Syg) 50 ML SYRINGE IVP PRN (22:31)
[2017-09-21] MEDS: Insulin LISPRO 300 UNITS/3 ML VIAL SQ SCH ×4 (00:43→17:48)
[2017-09-21 05:42] LABS: Basophils # 0.1 K/mcL (0.0-0.2); Basophils % 1.3 %; Eosinophils # 0.2 K/mcL (0.0-0.6); Eosinophils % 2.9 %; Hematocrit 31.3 % (37.5-50.1); Hemoglobin 10.8 g/dL (12.9-16.9); Immature Granulocytes % 0.8 % (0-4); Lymphocytes # 1.9 K/mcL (0.6-4.6); Lymphocytes % 36.1 %; Mean Corpuscular HGB Conc 34.5 g/dL (31.6-35.5); Mean Corpuscular Hemoglobin 32.3 pg (28.0-33.3); Mean Corpuscular Volume 93.7 fL (83.0-100.0); Mean Platelet Volume 8.7 fL (9.4-12.4); Monocytes # 0.5 K/mcL (0.0-1.3); Monocytes % 9.1 %; Neutrophils # 2.6 K/mcL (1.6-8.9); Platelet Count 183 K/mcL (140-400); Red Blood Count 3.34 M/mcL (4.19-5.50); Red Cell Distribution Width 12.7 % (11.5-14.5); Segmented Neutrophils % 49.8 %
[2017-09-21 05:48] LABS: INR 1.1; Prothrombin Time 11.9 Seconds (9.4-12.1)
[2017-09-21 06:03] LABS: BUN/Creatinine Ratio 18 (6-26); Blood Urea Nitrogen 17 mg/dL (8-23); Carbon Dioxide 26 mEq/L (23-29); Chloride 106 mEq/L (98-107); Chol/HDL Ratio 5.1 (0-4.9); Cholesterol 142 mg/dL (< 200); Glucose 114 mg/dL (70-105); HDL Cholesterol 28 mg/dL (40-59); LDL Cholesterol,Calculated 42 mg/dL (0-99); Osmolality,Calculated 288 (280-300); Potassium 3.8 mEq/L (3.5-5.1); Sodium 138 mEq/L (136-145); Triglycerides 362 mg/dL (< 150); Troponin I < 0.03 ng/mL (< 0.04); eGFR For African Americans > 60 (> 60); eGFR For Non-African Americans > 60 (> 60)
[2017-09-21] MEDS: *HR* Heparin 5,000 UNIT/ML VIAL IVP PRN ×2 (07:10→14:59)
[2017-09-21] MEDS: Furosemide 40 MG TABLET PO SCH (08:05)
[2017-09-21] MEDS: Venlafaxine XR (24 HR) 150 MG CAP.ER.24H PO SCH (08:06)
[2017-09-21] MEDS: Lisinopril 20 MG TABLET PO SCH ×2 (08:06→20:34)
[2017-09-21] MEDS: lamoTRIgine 100 MG TABLET PO SCH (08:06)
[2017-09-21] MEDS: Namzaric 28 Mg-10 Mg PO SCH (08:07)
[2017-09-21] MEDS: hydrOXYzine pamoate 25 MG CAPSULE PO SCH (08:07)
[2017-09-21] MEDS: [Fish Oil 1,000 Mg PO SCH ×2 (08:07→20:02)
[2017-09-21] MEDS ORDERED: *HR* Metformin 500 MG TABLET PO SCH (09:00)
[2017-09-21] MEDS ORDERED: Aspirin Enteric Coated 81 MG Tablet PO SCH (09:00)
--- NOTE | 2017-09-21 10:38 | Cardiology Consult Note ---
Date of Encounter: 09/21/17 Time of Encounter: 10:36 Assessment and Plan (1) Abnormal stress test Current Visit: Yes Status: Acute Chest pain, recent abnormal stress test. Serial troponins negative. We discussed options, including titration of medical therapy +/- cardiac catheterization. Patient scheduled for cardiac catheterization next week. Given admission for ongoing symptoms, I would recommend we continue inpatient medical care for now. Continue statin, beta shawn, EB inhibitor. Start aspirin 81 mg daily. Okay to stop heparin drip given negative troponins. Start DVT prophylaxis dose. We discussed the risks, benefits, and alternatives to a cardiac catheterization. Patient is agreeable. We will plan for Saturday. (2) Chest pain Current Visit: Yes Status: Acute Qualifiers: Chest pain type: unspecified Qualified Code(s): R07.9 - Chest pain, unspecified Discussion w patient/family: The assessment and plan as outlined above was discussed with the patient and/or family members who expressed understanding and agreement. All questions were answered. Thank you for involving us in the care of your patient. Please call with any questions. History of Present Illness Consult date: 09/21/17 Requesting physician: Octavio Guillen Consult reason: chest pain Chief complaint: chest pain History of present illness: Mr. Vasquez is a 62 year old male with a history of essential HTN, diabetes, PAF. Previous bioprosthetic aortic valve in 2011 at [place]. Patient reports possible previous PCI, one stent. He is not sure where or when this occurred. Recent abnormal stress test, scheduled for heart catheterization next week. Presents with complaints of chest discomfort. Substernal, no radiation. Occurs at rest and with activity. Serial troponins negative. BNP normal. Previous testing: Stress test 09/2017: Small, mild to moderate intensity, primarily fixed apical inferior defect. Mild worsening during stress possible due to ischemia. EF 60% . TTE 09/2017: EF 55%. Noln-[id number]-[id number] concentric LVH. Normal RV size and function. Normal prosthetic aortic valve function. Mild MR. No pulmonary hypertension. Past Med Surg Social Fam HX - Past Medical History Medical history: aortic aneurysm, asthma, atrial fibrillation, cancer, COPD, CVA , DVT, diabetes, hyperlipidemia, hypertension, myocardial infarction, renal disease Psychiatric history: anxiety, depression - Past Surgical History Surgical History: angioplasty/stent, appendectomy, cancer surgery, cholecystectomy, herniorrhaphy, orthopedic, other, sinus surgery, other - Social History Smoking Status: Never smoker Smokeless Tobacco Status: No Alcohol use: none Drug use: none - Family History Mother Family Member Ethnicity: Non- Living Status: Hx Family Cardiac Disorders: No Hx Family Respiratory Disorders: No Hx Family Cancer: Yes (Lung cancer) Hx Family GI Disorders: No Hx Family Endocrine Disorder: No Hx Family Neuromuscular Disorders: No Hx Family Neurologic Disorders: No Hx Family HEENT Disorders: No Hx Family Autoimmune Disorders: No Medications and Allergies Albuterol Sulfate [Proair Hfa] 2 puff IH QID PRN 08/29/15 [History] Aspirin [Adult Low Dose Aspirin EC] 162 mg PO QAM 08/29/15 [History] Chlordiazepoxide [Librium] 25 mg PO DAILY 08/29/15 [History] Diphenoxylate/Atropine [Lomotil 2.5 mg/0.025 mg] 2 each PO TID PRN 08/29/15 [ History] Ergocalciferol (VITAMIN D2) [Vitamin D2 (50,000 UNIT)] 50,000 unit PO MOWE 08/28 [History] Furosemide [Lasix] 20 mg PO QAM 08/29/15 [History] Isosorbide MONOnitrate (24 HR) [Imdur] 30 mg PO QPM 08/29/15 [History] Lisinopril [Zestril] 20 mg PO BID 08/29/15 [History] Nitroglycerin [Nitrostat] 0.4 mg SL Q5M PRN 08/29/15 [History] [place]-3/Dha/Epa/Fish Oil [Fish Oil 1,000 mg Softgel] 2,000 mg PO BID 08/29/15 [ History] OxyCODONE/APAP 10/325 [Percocet 10/325 MG] 1 each PO Q6HR PRN 08/29/15 [History] Potassium Chloride [K-Tab ER] 20 meq PO QAM 08/29/15 [History] metFORMIN [Glucophage] 500 mg PO QAM 08/29/15 [History] Simvastatin [Zocor] 40 mg PO HS #30 tablet 09/01/15 [Rx] Carvedilol [Coreg] 25 mg PO BID #60 tablet 11/16/16 [Rx] Chlordiazepoxide [Librium] 50 mg PO HS 09/20/17 [History] Memantine HCl/Donepezil HCl [Namzaric 28 mg-10 mg Capsule] 1 cap PO DAILY [History] Venlafaxine HCl [Venlafaxine HCl ER] 150 mg PO DAILY 09/20/17 [History] hydrOXYzine HCl [Hydroxyzine HCl] 25 mg PO DAILY 09/20/17 [History] lamoTRIgine [Lamictal] 100 mg PO DAILY 09/20/17 [History] 3 Allergy/AdvReac Type Severity Reaction Status Date / Time morphine Allergy Agitated Verified 09/20/17 17:27 naproxen [From Naprosyn] Allergy Rash Verified 09/20/17 17:27 propoxyphene [From Darvon] Allergy Rash Verified 09/20/17 17:27 ziprasidone [From Geodon] Allergy Rash Verified 09/20/17 17:27 All Systems Review: The remainder of the systems were reviewed and are negative - Cardiovascular Cardiovascular: as per HPI, chest pain at rest, chest pain with exertion Physical Examination Vital Signs, Last 4 Hours Temp Pulse Resp BP Pulse Ox 09/21/17 08:00 96 09/21/17 07:35 97.7 F 58 16 138/76 96 General: Conversant, No Apparent Distress HEENT: Atraumatic, Normocephaly, Mucus Membranes Moist Neck: No JVD, Normal carotid pulses Cardiac: Reg Rate and Rhythm, Normal S1 and S2, Other (Mild systolic murmur.) Lungs: Other (Shallow, but clear.) Neuro: Alert and responsive, No focal deficits noted Abdomen: Soft, Non-Tender Skin: No rashes noted on visualized skin Musculoskeletal: No Chest Wall Tenderness Extremities: No Clubbing, No Cyanosis, No Edema Results 09/21/17 05:15 09/21/17 05:15 Lab Results 09/20/17 09/20/17 09/21/17 21:40 22:41 05:15 WBC 5.3 Hgb 10.8 L Hct 31.3 L Plt Count 183 INR APTT 30.9 Sodium Potassium Chloride Carbon Dioxide BUN Creatinine Glucose Calcium Troponin I < 0.03 09/21/17 09/21/17 09/21/17 05:15 05:15 05:15 WBC Hgb Hct Plt Count INR 1.1 APTT 41.8 H Sodium 138 Potassium 3.8 Chloride 106 Carbon Dioxide 26 BUN 17 Creatinine 0.93 Glucose 114 H Calcium 9.0 Troponin I < 0.03 - Imaging and Cardiology Stress Test: report reviewed Echo: report reviewed Consult Discharge Plan - Plan Referrals: Uche Richard MD [Primary Care Provider] -
--- NOTE | 2017-09-21 15:49 | Internal Med Progress Note ---
Date of Encounter: 09/21/17 Time of Encounter: 15:46 - Assessment and plan (1) Abnormal stress test Current Visit: Yes Status: Acute Assessment and plan: Patient had abnormal stress test and was scheduled for cardiac cath as an outpatient next week Cardiology saw the patient and will perform a left heart catheterization on Saturday Heparin drip discontinued (2) Chest pain Current Visit: Yes Status: Acute Assessment and plan: Patient is currently pain-free with a history of CAD on Coreg and lisinopril and imdur. Qualifiers: Chest pain type: unspecified Qualified Code(s): R07.9 - Chest pain, unspecified (3) DVT prophylaxis Current Visit: No Status: Acute Assessment and plan: Stop heparin drip per cardiology recommendations and start DVT prophylaxis dose (4) CAD (coronary artery disease) Current Visit: No Status: Chronic Assessment and plan: Cardiology following and will have left heart catheterization on Saturday Start baby aspirin Qualifiers: Coronary Disease-Associated Artery/Lesion type: [place] artery [place] vs. transplanted heart: [place] heart Associated angina: without angina Qualified Code(s): I25.10 - Atherosclerotic heart disease of [place] coronary artery without angina pectoris (5) COPD (chronic obstructive pulmonary disease) Current Visit: No Status: Chronic Assessment and plan: Currently on room air Oxygen when necessary to maintain sats greater than 90%. DuoNeb every 6 hours when necessary as needed for wheezing Qualifiers: COPD type: unspecified COPD Qualified Code(s): J44.9 - Chronic obstructive pulmonary disease, unspecified (6) DM (diabetes mellitus) Current Visit: No Status: Chronic Assessment and plan: Hold metformin Accu-Cheks with low-dose sliding scale insulin Qualifiers: Diabetes mellitus type: type 2 Diabetes mellitus medical terminologist insulin use: without jail use Diabetes mellitus complication status: with unspecified complications Qualified Code(s): E11.8 - Type 2 diabetes mellitus with unspecified complications (7) HTN (hypertension) Current Visit: No Status: Chronic Assessment and plan: Pressure is stable continue home medications Qualifiers: Hypertension type: essential hypertension Qualified Code(s): I10 - Essential (primary) hypertension (8) Paroxysmal atrial fibrillation Current Visit: No Status: Chronic Assessment and plan: 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 He has no complaints of any chest pain or shortness of breath. He has no questions regarding conversation with cardiology for left heart catheterization on Saturday. - Constitutional Vitals: Temp Pulse Resp BP Pulse Ox 97.7 F 58 15 150/85 96 09/21/17 15:07 09/21/17 15:07 09/21/17 15:07 09/21/17 15:07 09/21/17 15:07 General appearance: Present: cooperative, A&O X 3, pleasant, no acute distress, answers questions appropriately - Head Head exam: Present: atraumatic, normocephalic - Eye Eye exam: Present: PERRL, conjuntiva pink, sclera anicteric Pupils: Present: PERRL - Neck Neck exam general surgery: Present: supple, trachea midline. Absent: lymphadenopathy - Respiratory Respiratory exam: Present: CTAB. Absent: accessory muscle use, rales, rhonchi, wheezes - Cardiovascular Cardiovascular exam: Present: RRR, +S1, +S2. Absent: diastolic murmur, gallop, rubs, systolic murmur - GI/Abdominal GI/Abdominal exam: Present: firm, normal bowel sounds, no peritoneal signs. Absent: distended, guarding, tenderness - Extremities Exam Extremities exam: Present: pedal edema, warm, radial pulses palpable and symmetrical. Absent: calf tenderness, cyanotic - Neurological Exam Neurological exam: Present: alert, CN II-XII intact, oriented X3, no focal deficits. Absent: pronater drift, facial droop, speech deficit - Skin Skin exam: Present: dry, intact, normal color, warm Internal Medicine: Result - Labs CBC & Chem 7: 09/21/17 05:15 09/21/17 05:15 Labs: Short CBC 09/21/17 Range/Units 05:15 WBC 5.3 (4.3-11.1) K/mcL Hgb 10.8 L (12.9-16.9) g/dL Hct 31.3 L (37.5-50.1) % Plt Count 183 (140-400) K/mcL Neutrophils # 2.6 (1.6-8.9) K/mcL BMP 09/21/17 05:15 Sodium 138 Potassium 3.8 Chloride 106 Carbon Dioxide 26 BUN 17 Creatinine 0.93 Glucose 114 H Calcium 9.0 Cardiac Enzymes 09/20/17 09/21/17 09/21/17 Range/Units 21:40 05:15 11:25 Troponin I < 0.03 < 0.03 < 0.03 (< 0.04) ng/mL - ABG Interpretation ABG results: PT/INR, D-dimer PT 11.9 Seconds (9.4-12.1) 09/21/17 05:15 Consult Discharge Plan - Plan Referrals: Uche Richard MD [Primary Care Provider] -
[2017-09-21] MEDS ORDERED: Ipratropium/Albuterol Neb 3 ML IH PRN (16:28)
[2017-09-21] MEDS: Isosorbide MONOnitrate (24 HR) 30 MG TAB.ER.24H PO SCH (17:58)
[2017-09-21] MEDS: *HR* Heparin 5,000 UNIT/ML VIAL SQ SCH (20:34)
[2017-09-22] MEDS: Insulin LISPRO 300 UNITS/3 ML VIAL SQ SCH ×4 (01:03→17:49)
[2017-09-22 05:39] LABS: Basophils # 0.1 K/mcL (0.0-0.2); Basophils % 1.1 %; Eosinophils # 0.2 K/mcL (0.0-0.6); Eosinophils % 3.3 %; Hematocrit 30.7 % (37.5-50.1); Hemoglobin 10.5 g/dL (12.9-16.9); Immature Granulocytes % 0.9 % (0-4); Lymphocytes # 1.5 K/mcL (0.6-4.6); Lymphocytes % 32.3 %; Mean Corpuscular HGB Conc 34.2 g/dL (31.6-35.5); Mean Corpuscular Hemoglobin 32.1 pg (28.0-33.3); Mean Corpuscular Volume 93.9 fL (83.0-100.0); Mean Platelet Volume 8.7 fL (9.4-12.4); Monocytes # 0.4 K/mcL (0.0-1.3); Monocytes % 8.7 %; Neutrophils # 2.5 K/mcL (1.6-8.9); Platelet Count 183 K/mcL (140-400); Red Blood Count 3.27 M/mcL (4.19-5.50); Red Cell Distribution Width 12.6 % (11.5-14.5); Segmented Neutrophils % 53.7 %
[2017-09-22 05:57] LABS: BUN/Creatinine Ratio 17 (6-26); Blood Urea Nitrogen 17 mg/dL (8-23); Calcium 8.8 mg/dL (8.6-10.3); Carbon Dioxide 28 mEq/L (23-29); Chloride 104 mEq/L (98-107); Glucose 112 mg/dL (70-105); Osmolality,Calculated 286 (280-300); Potassium 3.8 mEq/L (3.5-5.1); Sodium 137 mEq/L (136-145); eGFR For African Americans > 60 (> 60); eGFR For Non-African Americans > 60 (> 60)
[2017-09-22] MEDS: *HR* Heparin 5,000 UNIT/ML VIAL SQ SCH ×3 (06:19→21:25)
[2017-09-22] MEDS: Venlafaxine XR (24 HR) 150 MG CAP.ER.24H PO SCH (08:00)
[2017-09-22] MEDS: Lisinopril 20 MG TABLET PO SCH ×2 (08:00→21:25)
[2017-09-22] MEDS: Furosemide 40 MG TABLET PO SCH (08:00)
[2017-09-22] MEDS: lamoTRIgine 100 MG TABLET PO SCH (08:00)
[2017-09-22] MEDS: hydrOXYzine pamoate 25 MG CAPSULE PO SCH (08:00)
[2017-09-22] MEDS: Aspirin 81 MG TAB.CHEW PO SCH (08:00)
[2017-09-22] MEDS: [Fish Oil 1,000 Mg PO SCH ×2 (08:02→21:25)
[2017-09-22] MEDS: Namzaric 28 Mg-10 Mg PO SCH (08:02)
--- NOTE | 2017-09-22 10:31 | Cardiology Progress Note ---
Date of Encounter: 09/22/17 Time of Encounter: 09:00 Assessment and Plan (1) Abnormal stress test Current Visit: Yes Status: Acute Chest pain, recent abnormal stress test. Out-patient LHC was ordered. Serial troponins negative. TTE completed- LVEF 55%. Normal LV chamber size and function. Mild concentric left ventricular hypertrophy. Moderate left ventricular diastolic dysfunction. Atypical septal motion consistent with post-operative status. Normal right ventricular structure and function. Bioprosthetic aortic valve appears well seated and demonstrates normal function. Mild pulmonary hypertension. Estimated RVSP is 44 mmHg. Scheduled for LHC tomorrow as discussed. Patient denies questions. No recurrent chest pain overnights. Continue statin, beta shawn, EB inhibitor. Started aspirin 81 mg daily. NPO after midnight. (2) CAD (coronary artery disease) Current Visit: No Status: Chronic H/o CABG. Continue asa, statin, and bb, Qualifiers: Coronary Disease-Associated Artery/Lesion type: [place] artery [place] vs. transplanted heart: [place] heart Associated angina: without angina Qualified Code(s): I25.10 - Atherosclerotic heart disease of [place] coronary artery without angina pectoris (3) Chest pain Current Visit: Yes Status: Acute Qualifiers: Chest pain type: unspecified Qualified Code(s): R07.9 - Chest pain, unspecified Discussion w patient/family: The assessment and plan as outlined above was discussed with the patient and/or family members who expressed understanding and agreement. All questions were answered. Thank you for involving us in the care of your patient. Please call with any questions. Subjective Principal diagnosis: chest pain Interval history: Denies recurrent chest pain. Objective Vital Signs, Last 4 Hours Temp Pulse Resp BP Pulse Ox 09/22/17 08:05 95 09/22/17 07:28 97.9 F 58 20 134/81 95 General: Conversant, No Apparent Distress HEENT: Atraumatic, Normocephaly, Mucus Membranes Moist Neck: No JVD, Normal carotid pulses Cardiac: Reg Rate and Rhythm, Normal S1 and S2, No Murmur Lungs: Normal Breath Sounds, No Wheeze, Rales, Rhonchi Neuro: Alert and responsive, No focal deficits noted Abdomen: Soft, Non-Tender Skin: No rashes noted on visualized skin Musculoskeletal: No Chest Wall Tenderness Extremities: No Clubbing, No Cyanosis, No Edema, Normal Pulses Results 09/22/17 05:07 04/22/18 05:07 Lab Results 09/21/17 09/21/17 09/22/17 11:25 14:02 05:07 WBC 4.6 Hgb 10.5 L Hct 30.7 L Plt Count 183 APTT 49.7 H Sodium Potassium Chloride Carbon Dioxide BUN Creatinine Glucose Calcium Troponin I < 0.03 09/22/17 05:07 WBC Hgb Hct Plt Count APTT Sodium 137 Potassium 3.8 Chloride 104 Carbon Dioxide 28 BUN 17 Creatinine 1.02 Glucose 112 H Calcium 8.8 Troponin I - Imaging and Cardiology Stress Test: report reviewed Echo: report reviewed Consult Discharge Plan - Plan Referrals: Uche Richard MD [Primary Care Provider] -
[2017-09-22] MEDS ORDERED: Ondansetron 4 MG/2 ML VIAL IVP PRN (13:07)
--- NOTE | 2017-09-22 13:12 | Internal Med Progress Note ---
Date of Encounter: 09/22/17 Time of Encounter: 13:10 - Assessment and plan (1) Abnormal stress test Current Visit: Yes Status: Acute Assessment and plan: Patient had abnormal stress test and was scheduled for cardiac cath as an outpatient next week Cardiology saw the patient and will perform a left heart catheterization on Saturday Heparin drip discontinued and on DVT prophylaxis heparin (2) Chest pain Current Visit: Yes Status: Acute Assessment and plan: Patient is currently pain-free, history of CAD on Coreg and lisinopril and imdur. Qualifiers: Chest pain type: unspecified Qualified Code(s): R07.9 - Chest pain, unspecified (3) DVT prophylaxis Current Visit: No Status: Acute Assessment and plan: Heparin subcutaneous (4) CAD (coronary artery disease) Current Visit: No Status: Chronic Assessment and plan: Cardiology following Scheduled for left heart catheterization on Saturday Continue baby aspirin Qualifiers: Coronary Disease-Associated Artery/Lesion type: [place] artery [place] vs. transplanted heart: [place] heart Associated angina: without angina Qualified Code(s): I25.10 - Atherosclerotic heart disease of [place] coronary artery without angina pectoris (5) COPD (chronic obstructive pulmonary disease) Current Visit: No Status: Chronic Assessment and plan: Currently on room air Oxygen when necessary to maintain sats greater than 90%. 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 trench shovel operator use Diabetes mellitus complication status: with unspecified complications Qualified Code(s): E11.8 - Type 2 diabetes mellitus with unspecified complications (7) HTN (hypertension) Current Visit: No Status: Chronic Assessment and plan: Blood Pressure is stable, continue home medications Qualifiers: Hypertension type: essential hypertension Qualified Code(s): I10 - Essential (primary) hypertension (8) Paroxysmal atrial fibrillation Current Visit: No Status: Chronic Assessment and plan: manager monitoring Heart rate in the 50s Continue home medications (9) Chronic CHF (congestive heart failure) Current Visit: Yes Status: Acute Assessment and plan: Some pedal edema Echocardiogram reviewed LVEF 55% Normal LV chamber size and function Moderate left ventricular diastolic dysfunction Atypical septal motion consistent with post operative status Normal right ventricular structure and function Bio prosthetic aortic valve appears well seated and demonstrates normal function Mild pulmonary hypertension Qualifiers: Heart failure type: diastolic Qualified Code(s): I50.32 - Chronic diastolic (congestive) heart failure (10) Diarrhea Current Visit: Yes Status: Acute Assessment and plan: check stool culture denies recent sick contact Qualifiers: Diarrhea type: unspecified type Qualified Code(s): R19.7 - Diarrhea, unspecified (11) Nausea Current Visit: Yes Status: Acute Assessment and plan: zofran as needed - Time Spent With Patient Total time spent is greater than 50% in coordination of care (as documented) at patient's floor/unit and/or counseling patient: - Subjective Interval history: Patient lying in bed and states he just is not feeling well this morning. He states he is nauseated and had some diarrhea after he got cleaned up today. He has no chest pain or shortness of breath. No fever no sweats no dizziness. - Constitutional Vitals: Temp Pulse Resp BP Pulse Ox 97.9 F 54 18 115/69 96 09/22/17 11:18 09/22/17 11:18 09/22/17 11:18 09/22/17 11:18 09/22/17 11:18 General appearance: Present: cooperative, A&O X 3, pleasant, answers questions appropriately - Head Head exam: Present: atraumatic, normocephalic - Eye Eye exam: Present: PERRL, conjuntiva pink, sclera anicteric Pupils: Present: PERRL - Neck Neck exam general surgery: Present: supple, trachea midline. Absent: lymphadenopathy - Respiratory Respiratory exam: Present: CTAB. Absent: accessory muscle use, rales, rhonchi, wheezes - Cardiovascular Cardiovascular exam: Present: RRR, +S1, +S2. Absent: diastolic murmur, gallop, rubs, systolic murmur - GI/Abdominal GI/Abdominal exam: Present: normal bowel sounds, soft, no peritoneal signs. Absent: distended, guarding, tenderness - Extremities Exam Extremities exam: Present: pedal edema, warm, radial pulses palpable and symmetrical. Absent: calf tenderness, cyanotic - Neurological Exam Neurological exam: Present: alert, CN II-XII intact, oriented X3, no focal deficits. Absent: pronater drift, facial droop, speech deficit - Skin Skin exam: Present: dry, intact, normal color, warm Internal Medicine: Result - Labs CBC & Chem 7: 09/22/17 05:07 09/22/17 05:07 Labs: Short CBC 09/22/17 Range/Units 05:07 WBC 4.6 (4.3-11.1) K/mcL Hgb 10.5 L (12.9-16.9) g/dL Hct 30.7 L (37.5-50.1) % Plt Count 183 (140-400) K/mcL Neutrophils # 2.5 (1.6-8.9) K/mcL BMP 09/22/17 05:07 Sodium 137 Potassium 3.8 Chloride 104 Carbon Dioxide 28 BUN 17 Creatinine 1.02 Glucose 112 H Calcium 8.8 - ABG Interpretation ABG results: PT/INR, D-dimer PT 11.9 Seconds (9.4-12.1) 09/21/17 05:15 - Impressions Impressions Echocardiogram 09/21/17 22:17 Impressions: LVEF 55%. Normal LV chamber size and function. Mild concentric left ventricular hypertrophy. Moderate left ventricular diastolic dysfunction. Atypical septal motion consistent with post-operative status. Normal right ventricular structure and function. Bioprosthetic aortic valve appears well seated and demonstrates normal function. Mild pulmonary hypertension. Estimated RVSP is 44 mmHg. Left Ventricular Wall Motion: Rest Echo Findings All wall segments showed normal motion. Findings: Study Quality * Technically adequate exam. ECG Findings * Sinus bradycardia. Left Ventricle * LVEF 55%. * Normal LV chamber size and function. * Mild concentric left ventricular hypertrophy. * Moderate left ventricular diastolic dysfunction. * Atypical septal motion consistent with post-operative status. Right Ventricle * Normal right ventricular structure and function. Left Atrium * Mild to moderately dilated left atrium. Right Atrium * Mild to moderately dilated right atrium. Aortic Valve * Bioprosthetic aortic valve appears well seated and demonstrates normal function. * No aortic stenosis. Mean gradient 17 mmHg. * No aortic regurgitation. Mitral Valve * Normal mitral valve structure and function. * No mitral regurgitation. * No mitral stenosis. Tricuspid Valve * Normal tricuspid valve structure and function. * Trace tricuspid regurgitation. * Mild pulmonary hypertension. * Estimated RVSP is 44 mmHg. * Estimated RA pressure is 5 mmHg. Pulmonic Valve * Normal pulmonic valve structure and function. * No pulmonic regurgitation. Aorta * Normally sized aortic root. Pericardium * The pericardium appears normal. IVC * Normal IVC dimensions and inspiratory collapse. Pulmonary Artery * Normal visualized portions of the main pulmonary artery. Consult Discharge Plan - Plan Referrals: Uche Richard MD [Primary Care Provider] -
[2017-09-22] MEDS: Isosorbide MONOnitrate (24 HR) 30 MG TAB.ER.24H PO SCH (17:49)
[2017-09-23] MEDS: Insulin LISPRO 300 UNITS/3 ML VIAL SQ SCH ×3 (00:17→13:43)
[2017-09-23] MEDS: *HR* Heparin 5,000 UNIT/ML VIAL SQ SCH (06:52)
[2017-09-23] MEDS ORDERED: *HR* Heparin 10,000 UNIT/10 ML VIAL ONE (08:31)
[2017-09-23] MEDS ORDERED: 0.9 % Sodium Chloride 1,000 ML ONE ×2 (08:31→08:50)
[2017-09-23] MEDS ORDERED: Heparin 1,000 UNITS/500 mL 500 ML ONE (08:31)
[2017-09-23] MEDS ORDERED: ISOVUE-370 200 ML INFUS..BTL IV ONE (08:32)
[2017-09-23] MEDS ORDERED: Nitroglycerin 1,000 MCG/10 ML VIAL IV ONE (08:32)
--- NOTE | 2017-09-23 08:40 | Pre-Sedation Evaluation ---
Pre-sedation evaluation - Pre-sedation checklist Date of procedure: 09/23/17 Procedure: LHC Recent Vitals: Last Vital Signs Temp 98.3 F 09/23/17 07:13 Pulse 59 09/23/17 07:13 Resp 16 09/23/17 07:13 BP 115/71 09/23/17 07:13 Pulse Ox 93 09/23/17 07:13 ASA Classification *see protocol: CLASS II-Mild systemic disease
[2017-09-23] MEDS ORDERED: *HR* FentaNYL (PF) 100 MCG/2 ML VIAL ONE (08:49)
[2017-09-23] MEDS ORDERED: *HR* Midazolam HCl 2 MG/2 ML VIAL ONE (08:49)
--- NOTE | 2017-09-23 09:01 | Event Note ---
Date of Encounter: 09/23/17 Time of Encounter: 08:58 - Cardiology Event Note Mr. Vasquez is scheduled for [facility] this morning. He denies chest pain overnight. TTE reviewed with patient. Echocardiogram 09/21/17 22:17 Impressions: LVEF 55%. Normal LV chamber size and function. Mild concentric left ventricular hypertrophy. Moderate left ventricular diastolic dysfunction. Atypical septal motion consistent with post-operative status. Normal right ventricular structure and function. Bioprosthetic aortic valve appears well seated and demonstrates normal function. Mild pulmonary hypertension. Estimated RVSP is 44 mmHg. Patient denies questions. We will proceed as planned.
--- NOTE | 2017-09-23 10:13 | Invasive Diagnostic Lab Proc ---
Name: Camron Vasquez Date of Study: 09/23/2017 Date: 1955 Ht: 68.9in Medical Record#: [id number] Age: 62 Wt: 246.92lb Gender: Male BSA: 2.26 Order #: [id number] BMI: 36.57 Physicians Procedure Physician: Maria Luisa Vegas MD Referring MD: Referring MD: Staff Name Position Time In GenovevaAbbey moore RN Monitor 08:55 AM Jp Harmon RN Nurse 08:55 AM Alejandra Pemberton RN Clothes Model 08:55 AM Allegra Gutierrez RT (R) Scrub 08:55 AM Indications Indication Abnormal Test - Stress Procedures Performed Procedure CORONARY ARTERY ANGIO S&I INJECT SUPRVLVAORTAGRAM Pre-Procedure Checklist Informed consent is complete signed and on chart. H&P is on chart. ID band is on and ID verified with patient. Patient NPO for procedure The procedure was described for the patient and questions were answered. ECG is on chart. Rhythm: Sinus Bradycardia Plan of Care Patient will tolerate the procedure without complications. Adequate level of comfort will be maintained. Hemodynamics will remain stable Patient will recover from procedure without complications. Respiratory function will be maintained. Cardiac rhythm will remain stable. Patient temperature will be maintained. Patient and/or family have verbalized understanding of the procedure. Patient Education Chief Complaint/Reason for Test: Cardiac Cath Developmental Category: Geriatric (65+ years) Developmentally Appropriate for Age: Yes Learning Barriers: None Education Needs: Procedure Education Method: Verbal Information Taught: Cardiac Cath Educational Evaluation: Able to repeat information Intravenous Access Time IV Size Location DC'd Fluid/Drip Rate Units RN 08:38 AM 20g 1 06/06" Patent On Arrival Allergies NAPROSYN, DARVOCET DARVOCET N naproxen PROPOXYPHENE PRODUCTS DARVOCET, NAPROSYN, GEADON morphine acetaminophen propoxyphene Gabapentin ziprasidone Vital Signs Time BP (mmHg) HR (bpm) O2 Sat. RR (bpm) LOC 08:56 AM / % 5 = Fully awake and oriented or at pre-proc level 08:56 AM / % 5 = Fully awake and oriented or at pre-proc level 09:11 AM / % 4 = Oriented but drowsy 09:26 AM / % 4 = Oriented but drowsy 08:58 AM 153 / 80 56 95 % 09:02 AM 148 / 81 53 97 % 09:07 AM 149 / 83 55 97 % 09:12 AM 144 / 75 56 96 % 09:17 AM 142 / 77 56 95 % 09:22 AM 140 / 78 56 96 % 09:27 AM 151 / 76 53 96 % 09:32 AM 150 / 83 52 96 % 09:37 AM 148 / 81 53 96 % 09:42 AM 157 / 82 52 96 % 09:47 AM 153 / 85 55 96 % 09:53 AM 150 / 81 55 96 % Procedural Medications Time Medication Dose Units Method Given By 08:55 AM Oxygen 2 L/min nasal cannula Alejandra Pemberton RN 09:09 AM Lidocaine 2% 10 ml Subcutaneous Maria Luisa Vegas MD 09:13 AM Versed 1 mg Intravenous Alejandra Pemberton RN 09:21 AM Heparin 1000 units Intravenous Alejandra Pemberton RN 09:00 AM Benadryl 25 mg Intravenous Alejandra Pemberton RN ASA Classification: CLASS II- Mild systemic disease (i.e. well-controlled diabetes, hypertension, asthma, cigarette smoking) Rui Score Preprocedure Postprocedure Activity 2- Moves 4 extremities sustained head lift Activity 2- Moves 4 extremities sustained head lift Circulation 2- SBP +/= 20 points of pre-anesthetic level Circulation 2- SBP +/= 20 points of pre-anesthetic level Consciousness 2- Awake and alert oriented x 3 Consciousness 2- Awake and alert oriented x 3 O2 Saturation 2- Able to maintain O2 satruation of 92% on room air O2 Saturation 2- Able to maintain O2 satruation of 92% on room air Respiratory 2- Able to deep breathe and cough well Respiratory 2- Able to deep breathe and cough well Total Score 10 Total Score 10 Contrast Agent: Isovue Diagnostic Contrast: 120 ml Total Contrast: 120 ml Fluoro Dose: 1144 mGy Procedure Log Time Note Enter By 08:55 AM Pt arrived to slab tripper 2 at 08:54 [facility] 08:55 AM Abbey Jimenez RN Position: Monitor Time in: 08:55 [facility] 08:55 AM Jp Harmon RN Position: Nurse [facility]: 08[facility] AM Alejandra Pemberton RN Position: Clothes Model Time in: 08:55 [facility] 08:55 AM Matt, Allegra RT (R) Position: Scrub Time in: 08:55 tsoummers 08:55 AM Patient charges- Angio tray pack, Navilyst 3mm J, Pulse Oximetry and ACIST tubing and transducer tsoummers 08:55 AM Case Delayed No [email or web address] 08:55 AM Hair removed from procedure site in procedure lab using clippers. Bilateral groin prepped with Chloraprep by Allegra Gutierrez RT (R), then patient was draped. Skin intact. tsoummers 08:55 AM Physican paged/called 08:55. tsoummers 08:55 AM Physican responded and notified patient is ready 08:55 tsoummers 08:55 AM Physician arrived 08:55 tsmmers 08:55 AM Meet and greet completed mmers 08:55 AM Sign in performed according to hospital policy. tsoummers 08:55 AM Procedure start 08:55 tsoummers 08:55 AM CathStat 08:55 AM Time: 08:55 Oxygen on at 2 L/min per nasal cannula by Alejandra Pemberton RN casey 08:56 AM Time: 08:56 Patient comfortable and pain free: Yes tsoummers 08:56 AM Time: 08:56LOC: 5 = Fully awake and oriented or at pre-proc level tsoummers 08:56 AM Recorded ECG: HR=55 Condition=Condition 1 08:57 AM Vitals capture started with the following parameters, Patient=Adult, Interval=5 min, Initial Uhnyijsi=142 mmHg, Deflation Rate=5 mmHg, Cuff placed on Right Arm 08:58 AM HR=56 bpm, CXBX=935/80 mmhg, SpO2=95.0 %, Comment=SB 08:58 AM Patient charges- Angio tray pack, Navilyst 3mm J, Pulse Oximetry and ACIST tubing and transducer [email or web address] 09:00 AM Time: 09:00 Benadryl 25 mg Intravenous Given by Alejandra Pemberton RN 09:02 AM HR=53 bpm, OFOI=254/81 mmhg, SpO2=97.0 %, Comment=SB 09:06 AM ASA Class CLASS II- Mild systemic disease (i.e. well-controlled diabetes, hypertension, asthma, cigarette smoking) [email or web address] 09:07 AM HR=55 bpm, AQSE=849/83 mmhg, SpO2=97.0 %, Comment=SB 09:08 AM Time out performed according to hospital policy 09:09 AM Time: 09:09 10 ml Lidocaine 2% to right groin Subcutaneous Given by Maria Luisa Vegas MD je 09:09 AM Micro-Introducer Kit utilized for sheath placement oscar 09:09 AM Pressure channel 1 zero failed. 09:09 AM Pressure channel 1 zeroed. 09:11 AM Time: 08:56 Patient comfortable and pain free: Yes oscar 09:11 AM Time: 08:56LOC: 5 = Fully awake and oriented or at pre-proc level [facility] AM Access obtained by percutaneous puncture. 6Fr 10cm Terumo [place] sheath placed in right Femoral artery. [id number] [facility] 09:12 AM 0.035 145cm Navilyst 3mmJ wire [id number] [facility] 09:12 AM HR=56 bpm, WGZD=909/75 mmhg, SpO2=96.0 %, Comment=SB 09:13 AM 5Fr FR 4 catheter inserted over the wire [facility] 09:13 AM RCA angiography performed in multiple views. oscar 09:14 AM Time: 09:13 Versed 1 mg Intravenous Given by Alejandra Pemberton RN je 09:14 AM Recorded Pressure: Ao, HR=57, Condition=Condition 1 (Aorta) Ao 130/78/101 09:14 AM [facility]ter [facility] 09[facility]14 AM 5Fr FL 4 [facility] 09[facility]17 AM HR=56 bpm, QSNP=254/77 mmhg, SpO2=95.0 %, Comment=SB 09:20 AM [facility]atheter [facility] 09:20 AM 5Fr FL5 catheter inserted over the wire [id number] [facility] 09:22 AM Time: 09:21 Heparin 1000 units Intravenous Given by Alejandra Pemberton RN 09:22 AM Catheter removed ari 09:22 AM HR=56 bpm, JIAH=844/78 mmhg, SpO2=96.0 %, Comment=SB 09:25 AM 6Fr XB3.0 [place] Bright-Tip guide catheter was used julissamm 09:26 AM Time: 09:11LOC: 4 = Oriented but drowsy tsoummers 09:26 AM Time: 09:11 Patient comfortable and pain free: Yes oumm 09:27 AM Guide catheter removed intact. tsoumm 09:27 AM HR=53 bpm, KCBV=741/76 mmhg, SpO2=96.0 %, Comment=SB 09:28 AM 5Fr Pigtail catheter inserted over the wire DNC tsoumm 09:32 AM Catheter removed tsoumm 09:32 AM pigtail catheter reinserted tsoumm 09:32 AM HR=52 bpm, UPHK=468/83 mmhg, SpO2=96.0 %, Comment=SB 09:33 AM Bolus angiogram of Aortic root complete: 5 ml/sec for a total of 10 mls tsoumm 09:34 AM Bolus angiogram of Aortic root complete: 10 ml/sec for a total of 15 mls tsoummoscar 09:34 AM [facility] 09:35 AM XB 3.0 reinserted. oumm 09:37 AM HR=53 bpm, XQHZ=462/81 mmhg, SpO2=96.0 %, Comment=SB 09:38 AM XB 3.0 removed oummoscar 09:39 AM FL 5 catheter reinserted mmoscar 09:41 AM FL 5 removed 09:41 AM Time: 09:26LOC: 4 = Oriented but drowsy tsoummers 09:42 AM 5Fr AL2 catheter inserted over the wire [id number] oscar 09:42 AM HR=52 bpm, HSKK=909/82 mmhg, SpO2=96.0 %, Comment=SB 09:44 AM Recorded Pressure: Ao, HR=54, Condition=Condition 1 (Aorta) Ao 140/72/101 09:44 AM LCA angiography performed in multiple views. tsmmoscar 09:47 AM HR=55 bpm, FSWQ=172/85 mmhg, SpO2=96.0 %, Comment=SB 09:48 AM Catheter removed tspanchommoscar 09:49 AM Wire removed tspanchommoscar 09:49 AM Procedure completed at 09:49 [facility] 09[facility]51 AM Sign out completed: Radiation Dose 1144.5 mGy Fluoro Time: 13.3 Isovue 370 - 200ml contrast 120 ml given by Maria Luisa Vegas MD. Complications: NoneCardiac Rehab Consult needed: NoConfirmed administered medications: Yes oumm 09:51 AM Isovue 370 - 200ml,2 Bottle(s) used. tsoumm 09:52 AM Arterial sheath pulled, Mynx closure device used and was Successful [id number] S/N. tsoumm 09:52 AM Estimated Blood Loss: minimal tsoummers 09:52 AM Post ECG Sinus Bradycardia tsoumm 09:52 AM Post Blood Pressure 153/85 tsoummers 09:52 AM 09:52 Post Pulses Bilateral DP & PT 2+ tsoumm 09:52 AM Information taught Cardiac Cath 09:52 AM Education needs Procedure, Plan of Care, and Responsibilities of Patient in Care tsoumm 09:53 AM Learning barriers :None mm 09:53 AM Education Methods Verbal mm 09:53 AM HR=55 bpm, VCML=124/81 mmhg, SpO2=96.0 %, Comment=SB 09:53 AM Education evaluation Able to repeat information oumm 09:53 AM Site status No bleeding/hematoma - Rt Groin as reported by Allegra Gutierrez RT (R) at 09:53 oumm 09:53 AM Opsite applied mm 09:53 AM Plavix, Effient or Brilinta given No tsoummers 09:53 AM Delay to floor No tsoummers 09:54 AM Complications: None tsoummers 09:54 AM Fluoro Time: 13.3 oumm 09:54 AM Isovue 370 - 200ml contrast [address] Vegas. tsoumm 09:54 AM Radiation Dose 1144.5 mGy tsoummers 09:54 AM No family present tsoummers 09:55 AM Coronary Dominance: Left tsoummers 10:02 AM Report given to Heide SCHERER Pt taken to Room #65. 10:02 tsoummers 10:02 AM Patient out of room: 10:02 [email or web address] Complications Complication None Hemodynamics Pressures Site Systolic/A Wave Diastolic/V Wave Mean AO 130 78 101 AO 140 72 101 Post Procedure Information Blood Pressure: 153/85 mmHg Rhythm: Sinus Bradycardia Post procedural instructions were given Closure Device Time Device Success/Fail 09/23/2017 9:54:00 AM MynxGrip Successful Site Checks Time Location Status Staff Sheath In? Note 09:53 AM Rt Groin No bleeding/hematoma Allegra Gutierrez RT (R) Pulses Time Site Pre-Procedure Post-Procedure Note 09/23/2017 8:39:00 AM Bilateral radial 2+ 09/23/2017 8:39:00 AM Bilateral DP & PT 2+ 9:52:00 AM Bilateral DP & PT 2+ Updated by Abbey Jimenez RN on 09/23/2017 10:03:36 AM electronically signed on 09/23/2017 10:04:13 AM with status of Final
--- NOTE | 2017-09-23 12:04 | Discharge Summary ---
- NOTES TO OUTPATIENT PROVIDER Notes to Outpatient Provider: Patient had normal left heart catheterization. We will continue his same medications and follow-up with cardiology as directed in the office as an outpatient. Should follow-up with his PCP in one week. Orders not resulted at time of discharge: Pending orders 09/22/17 13:08 Culture,Stool [RM] Routine Date of Encounter: 09/23/17 Time of Encounter: 12:01 - Discharge Diagnosis (1) Abnormal stress test Priority: Primary Status: Acute Assessment and Plan: Patient had abnormal stress test and was scheduled for cardiac cath as an outpatient, presented to the ED and was admitted with chest pain Cardiology saw the patient and preformed a left heart catheterization this am Normal heart cath and will be discharged on same meds to follow-up with cardiology as an outpatient (2) Chest pain Priority: Primary Status: Acute Assessment and Plan: Patient history of CAD on Coreg and lisinopril and imdur, continue home medications at same dose. Qualifiers: Chest pain type: unspecified Qualified Code(s): R07.9 - Chest pain, unspecified (3) CAD (coronary artery disease) Priority: Primary Status: Chronic Assessment and Plan: Cardiology following heart catheterization completed Continue baby aspirin Qualifiers: Coronary Disease-Associated Artery/Lesion type: [place] artery [place] vs. transplanted heart: [place] heart Associated angina: without angina Qualified Code(s): I25.10 - Atherosclerotic heart disease of [place] coronary artery without angina pectoris (4) COPD (chronic obstructive pulmonary disease) Priority: Primary Status: Chronic Assessment and Plan: Currently on room air, non-exacerbated Oxygen when necessary to maintain sats greater than 90%. DuoNeb every 6 hours when necessary as needed for wheezing Clear on exam Qualifiers: COPD type: unspecified COPD Qualified Code(s): J44.9 - Chronic obstructive pulmonary disease, unspecified (5) DM (diabetes mellitus) Priority: Primary Status: Chronic Assessment and Plan: Patient to resume previous medication regime for his diabetes Qualifiers: Diabetes mellitus type: type 2 Diabetes mellitus halfway insulin use: without watermelon inspector use Diabetes mellitus complication status: with unspecified complications Qualified Code(s): E11.8 - Type 2 diabetes mellitus with unspecified complications (6) HTN (hypertension) Priority: Primary Status: Chronic Assessment and Plan: Blood Pressure remains stable, continue home medications Qualifiers: Hypertension type: essential hypertension Qualified Code(s): I10 - Essential (primary) hypertension (7) Paroxysmal atrial fibrillation Priority: Primary Status: Chronic Assessment and Plan: Stable heart rate Continue home medications (8) Chronic CHF (congestive heart failure) Priority: Primary Status: Acute Assessment and Plan: Some pedal edema but patient states no worse than normal Echocardiogram reviewed LVEF 55% Normal LV chamber size and function Moderate left ventricular diastolic dysfunction Atypical septal motion consistent with post operative status Normal right ventricular structure and function Bio prosthetic aortic valve appears well seated and demonstrates normal function Mild pulmonary hypertension continue same medications Qualifiers: Heart failure type: diastolic Qualified Code(s): I50.32 - Chronic diastolic (congestive) heart failure (9) Diarrhea Priority: Primary Status: Resolved Assessment and Plan: check stool culture ordered but no further stools, not collected denies recent sick contact Qualifiers: Diarrhea type: unspecified type Qualified Code(s): R19.7 - Diarrhea, unspecified (10) Nausea Priority: Primary Status: Resolved Assessment and Plan: zofran administered as needed Hospital course: Mr. Vasquez is a 62 year old male with past medical history of hypertension, diabetes, PAF, CHF, aortic prosthetic valve replacement in 2011 at [place] and previous positive stress test. He was scheduled for an outpatient cardiac catheterization this week. He developed chest pain and went to the ER they admitted him. Cardiology saw the patient and performed a left heart catheterization today. Findings were reported as coronary arteries are angiographically normal. Recommended optimal medical therapy of patient's disease and aggressive risk factor modification. To follow up with cardiology in the office and continue same home regime of medications. Patient to be discharged after his post catheter orders are completed and he has ambulated in the benavides and tolerated a diet. Discharge discussed with: patient, family, nurse, business management consultant - Time Spent with Patient Total time spent providing and/or coordinating discharge services: Less than 30 minutes - Discharge Medications Home Medications: Albuterol Sulfate [Proair Hfa] 2 puff IH QID PRN 08/29/15 [History] Aspirin [Adult Low Dose Aspirin EC] 162 mg PO QAM 08/29/15 [History] Chlordiazepoxide [Librium] 25 mg PO DAILY 08/29/15 [History] Diphenoxylate/Atropine [Lomotil 2.5 mg/0.025 mg] 2 each PO TID PRN 08/29/15 [ History] Ergocalciferol (VITAMIN D2) [Vitamin D2 (50,000 UNIT)] 50,000 unit PO MOWE 08/28 [History] Furosemide [Lasix] 20 mg PO QAM 08/29/15 [History] Isosorbide MONOnitrate (24 HR) [Imdur] 30 mg PO QPM 08/29/15 [History] Lisinopril [Zestril] 20 mg PO BID 08/29/15 [History] Nitroglycerin [Nitrostat] 0.4 mg SL Q5M PRN 08/29/15 [History] [place]-3/Dha/Epa/Fish Oil [Fish Oil 1,000 mg Softgel] 2,000 mg PO BID 08/29/15 [ History] OxyCODONE/APAP 10/325 [Percocet 10/325 MG] 1 each PO Q6HR PRN 08/29/15 [History] Potassium Chloride [K-Tab ER] 20 meq PO QAM 08/29/15 [History] metFORMIN [Glucophage] 500 mg PO QAM 08/29/15 [History] Simvastatin [Zocor] 40 mg PO HS #30 tablet 09/01/15 [Rx] Carvedilol [Coreg] 25 mg PO BID #60 tablet 11/16/16 [Rx] Chlordiazepoxide [Librium] 50 mg PO HS 09/20/17 [History] Memantine HCl/Donepezil HCl [Namzaric 28 mg-10 mg Capsule] 1 cap PO DAILY [History] Venlafaxine HCl [Venlafaxine HCl ER] 150 mg PO DAILY 09/20/17 [History] hydrOXYzine HCl [Hydroxyzine HCl] 25 mg PO DAILY 09/20/17 [History] lamoTRIgine [Lamictal] 100 mg PO DAILY 09/20/17 [History] Allergies/Adverse Reactions: 3 Allergy/AdvReac Type Severity Reaction Status Date / Time morphine Allergy Agitated Verified 09/20/17 17:27 naproxen [From Naprosyn] Allergy Rash Verified 09/20/17 17:27 propoxyphene [From Darvon] Allergy Rash Verified 09/20/17 17:27 ziprasidone [From Geodon] Allergy Rash Verified 09/20/17 17:27 Date of admission: 09/20/17 21:15 Primary care physician: Uche Richard MD Consults: 09/20/17 21:19 Consult to Cardiology [CONS] Routine Comment: Consulting Provider: Cardiology Funmilayo Reason for Consult: Chest pain, abnormal outpatient stress test Call Completed: No Discharging clinician: Lorena Wilkes Anticipated date of discharge: 09/23/17 - Constitutional Vitals: Temp Pulse Resp BP Pulse Ox 97.8 F 53 16 144/71 95 09/23/17 11:25 09/23/17 11:25 09/23/17 11:25 09/23/17 11:25 09/23/17 11:25 General appearance: Present: cooperative, A&O X 3, pleasant, answers questions appropriately - Head Head exam: Present: atraumatic, normocephalic - Eye Eye exam: Present: PERRL, conjuntiva pink, sclera anicteric Pupils: Present: PERRL - Neck Neck exam general surgery: Present: supple, trachea midline. Absent: lymphadenopathy - Respiratory Respiratory exam: Present: decreased breath sounds, CTAB. Absent: accessory muscle use, rales, rhonchi, wheezes - Cardiovascular Cardiovascular exam: Present: RRR, +S1, +S2. Absent: diastolic murmur, gallop, rubs, systolic murmur - GI/Abdominal GI/Abdominal exam: Present: normal bowel sounds, soft, no peritoneal signs. Absent: distended, tenderness - Extremities Exam Extremities exam: Present: pedal edema, warm, radial pulses palpable and symmetrical. Absent: calf tenderness, cyanotic - Neurological Exam Neurological exam: Present: alert, CN II-XII intact, oriented X3, no focal deficits. Absent: pronater drift, facial droop, speech deficit - Skin Skin exam: Present: dry, normal color, warm Additional comments: cath site without hematoma - Patient Status Disposition: Home, Self-Care Condition: Good Functional capacity at discharge: independent ambulation Overall status at discharge: patient is back to baseline - Discharge Instructions Follow Up With: Uche Richard MD [Primary Care Provider] - - Diet and Activity Activity: increase activity as tolerated Diet: diabetic diet, low fat, low cholesterol, low salt diet
[2017-09-23 13:16] VITALS: BP 156/83
--- NOTE | 2017-09-23 13:18 | Event Note ---
Date of Encounter: 09/23/17 Time of Encounter: 13:00 - Cardiology Event Note LHC completed. No intervention needed. Okay for discharge later this afternoon from cardiology stand point. Out-pt f/u will be scheduled in 3-4 weeks.
[2017-09-23] MEDS: hydrOXYzine pamoate 25 MG CAPSULE PO SCH (13:40)
[2017-09-23] MEDS: Venlafaxine XR (24 HR) 150 MG CAP.ER.24H PO SCH (13:40)
[2017-09-23] MEDS: Furosemide 40 MG TABLET PO SCH (13:41)
[2017-09-23] MEDS: lamoTRIgine 100 MG TABLET PO SCH (13:41)
[2017-09-23] MEDS: Aspirin 81 MG TAB.CHEW PO SCH (13:41)
[2017-09-23] MEDS: Lisinopril 20 MG TABLET PO SCH (13:41)
[2017-09-23] MEDS: [Fish Oil 1,000 Mg PO SCH (13:42)
[2017-09-23] MEDS: Namzaric 28 Mg-10 Mg PO SCH (13:42)
--- NOTE | 2017-09-24 05:17 | Electrocardiograph Report ---
[address] [address] Test Date: 2017-09-20 Pat Name: [facility] Department: 103 Room: 3B Gender: M Mobile Mechanic: CEE : 1955 Requested By: [id number] Order Number: [id number] Reading MD: Paras Jaimes Measurements Intervals [place] Rate: 56 P: 79 DE: 190 QRS: 5 QRSD: 90 T: 61 QT: 413 QTc: 406 Interpretive Statements SINUS BRADYCARDIA Electronically Signed On 09-24-2017 5:15:44 EDT by Paras Jaimes
== END 2017-09-23 15:15 | disposition home or self-care (01) | DRG 287 ==
LOC: 3BNU 15:11 → EMEROO 15:11 → 3BNU 20:34
PROVIDERS: ADMIT Family Medicine; ATTEND Family Medicine

== ENCOUNTER 2018-06-10 12:32 | Inpatient (IN) ==
--- NOTE | 2018-06-10 13:26 | Emergency Department Note ---
Disposition Clinical Impression: Left-sided weakness, HTN (hypertension), CHF (congestive heart failure), CAD (coronary artery disease), DM (diabetes mellitus), COPD (chronic obstructive pulmonary disease), Chest pain, Aortic aneurysm Disposition: Admitted As Inpatient Forms: ED Satisfaction Letter General Adult HPI - General Chief complaint: ED Chest Pain Stated complaint: CP Time Seen by Provider: 06/10/18 13:25 - History of Present Illness HPI Narrative: 63-year-old male reports emergency department complaining of left upper and left lower extremity weakness which began about 7 days ago. He also began experiencing chest pain at that time. The patient reports he was "stubborn" and did not want to come to the hospital. He saw his primary care physician today, he states Dr. Mccracken's staff escorted him to the emergency department. The patient has had some intermittent midsternal chest pain sometimes associated with breathing. No tearing back pain or syncope. The patient denies anticoagulant medication apart from antiplatelet agents. There is no history of abdominal pain or vomiting. Nonbloody diarrhea is reported. There is no history of right upper or right lower extremity weakness no slurred speech or facial droop left upper and left lower extremity weakness are reported. He states he has a history of prior stroke which he recovered and had no residual neurologic defects he is known to be diabetic and describes a aortic aneurysm as well as prior chest surgery. Per chart he has a history of coronary stents and aortic aneurysm. Pain Scale: 9 - Related Data Home Medications Medication Instructions Recorded Confirmed Albuterol Sulfate [Proair Hfa] 2 puff IH QID PRN 08/29/15 06/10/18 Aspirin [Adult Low Dose Aspirin EC] 162 mg PO QAM 08/29/15 06/10/18 Chlordiazepoxide [Librium] 25 mg PO DAILY 08/29/15 06/10/18 Diphenoxylate/Atropine [Lomotil 2 each PO TID PRN 08/29/15 06/10/18 2.5 mg/0.025 mg] Ergocalciferol (VITAMIN D2) 50,000 unit PO MOWE 08/29/15 06/10/18 [Vitamin D2 (50,000 UNIT)] Furosemide [Lasix] 20 mg PO QAM 08/29/15 06/10/18 Isosorbide MONOnitrate (24 HR) 30 mg PO QPM 08/29/15 06/10/18 [Imdur] Lisinopril [Zestril] 20 mg PO BID 08/29/15 06/10/18 Nitroglycerin [Nitrostat] 0.4 mg SL Q5M PRN 08/29/15 06/10/18 [place]-3/Dha/Epa/Fish Oil [Fish Oil 2,000 mg PO BID 08/29/15 06/10/18 1,000 mg Softgel] OxyCODONE/APAP 10/325 [Percocet 1 each PO Q6HR PRN 08/29/15 06/10/18 10/325 MG] Potassium Chloride [K-Tab ER] 20 meq PO QAM 08/29/15 06/10/18 metFORMIN [Glucophage] 500 mg PO QAM 08/29/15 06/10/18 Chlordiazepoxide [Librium] 50 mg PO HS 09/20/17 06/10/18 Memantine HCl/Donepezil HCl 1 cap PO DAILY 09/20/17 06/10/18 [Namzaric 28 mg-10 mg Capsule] Venlafaxine HCl [Venlafaxine HCl 150 mg PO DAILY 09/20/17 06/10/18 ER] hydrOXYzine HCl [Hydroxyzine HCl] 25 mg PO DAILY 09/20/17 06/10/18 lamoTRIgine [Lamictal] 100 mg PO DAILY 09/20/17 06/10/18 Penicillin VK [Pencillin VK] 500 mg PO QID 06/10/18 06/10/18 Previous Rx's Medication Instructions Recorded Simvastatin [Zocor] 40 mg PO HS #30 tablet 09/01/15 Carvedilol [Coreg] 25 mg PO BID #60 tablet 11/16/16 Allergies Allergy/AdvReac Type Severity Reaction Status Date / Time morphine Allergy Agitated Verified 03/27/18 16:11 naproxen [From Naprosyn] Allergy Rash Verified 03/27/18 16:11 propoxyphene [From Darvon] Allergy Rash Verified 03/27/18 16:11 ziprasidone [From Geodon] Allergy Rash Verified 03/27/18 16:11 All systems ED: reviewed and negative except as stated. Past Medical History - Past Medical History Medical history: Reports: aortic aneurysm, cancer, diabetes, hypertension, other Surgical history: Reports: angioplasty/stent, appendectomy, cancer surgery, cholecystectomy, herniorrhaphy, orthopedic, other, sinus surgery, other Psychiatric history: Reports: anxiety, depression - Social History Smoking Status: Never smoker Smokeless Tobacco Status: No Alcohol use: Reports: none Drug use: Reports: none Physical Exam - General Limitations: no limitations General appearance: alert, in no apparent distress - Head Head exam: atraumatic, normocephalic, normal inspection - Eye Eye exam: Present: normal appearance, PERRL, EOMI. Absent: scleral icterus - ENT ENT exam: normal exam, normal oropharynx, mucous membranes moist, TM's normal bilaterally, normal external ear exam - Neck Neck exam: Present: normal inspection, full ROM, trachea midline. Absent: tenderness - Chest Chest inspection: Present: symmetric chest wall rise. Absent: tenderness - Respiratory Respiratory exam: Present: normal lung sounds bilaterally. Absent: respiratory distress, prolonged expiratory phase - Cardiovascular Cardiovascular exam: Present: regular rate, normal rhythm, normal heart sounds - Abdominal Exam Abdominal exam: Present: soft, Non-Tender, normal bowel sounds. Absent: tenderness, distention, guarding, rebound, rigidity - Extremities Exam Extremities exam: Present: normal inspection, full ROM, normal capillary refill. Absent: tenderness, pedal edema, joint swelling, calf tenderness - Back Exam Back exam: Present: normal inspection, full ROM. Absent: tenderness, CVA tenderness (R), CVA tenderness (L), vertebral tenderness - Neurological Exam Neurological exam: Present: alert, oriented X3, CN II-XII intact. Absent: motor sensory deficit (Left upper and left lower extremity weakness noted, right upper and right lower extremity show good motion sensation and strength.) - Psychiatric Psychiatric exam: Present: normal affect, normal mood - Skin Skin exam: Present: warm, dry, intact, normal color Course Vital Signs Temperature 97.5 F L 06/10/18 12:35 Pulse Rate 90 06/10/18 12:35 Respiratory Rate 16 06/10/18 12:35 O2 Sat by Pulse Oximetry 99 06/10/18 12:35 Temperature 97.5 F L 06/10/18 12:35 Pulse Rate 90 06/10/18 12:35 Respiratory Rate 16 06/10/18 12:35 O2 Sat by Pulse Oximetry 99 06/10/18 12:35 Oxygen Delivery Oxygen Delivery Room Air Medical Decision Making - MDM Narrative Medical decision making narrative: The patient is elderly and has a history of CVA per his report. He describes left upper and left lower extremity weakness which began about a week ago. He has been experiencing intermittent chest pain. The pain is not been radiating. He has had pain for about a week. The patient has a known thoracic aneurysm. There is no history of tearing back pain or syncope. No leg swelling or pain acutely he describes left lower extremity edema which has been present prior. He has a history of DVT. Based on the patient's age, vascular comorbidities and risk factors, apparent left upper and left lower extremity weakness which is new onset 1 week ago per the patient I thought it would be appropriate to admit the patient the hospital. He has highly agreeable. Aspirin was ordered. The patient appears to be stable. I discussed the case with the hospitalist on-call who has accepted the patient to their care. - Lab Data Result diagrams: 06/10/18 13:39 06/10/18 13:39 Lab Results 06/10/18 06/10/18 06/10/18 Range/Units 13:39 13:39 14:22 WBC 5.4 (4.3-11.1) K/mcL RBC 3.57 L (4.19-5.50) M/mcL Hgb 11.2 L (12.9-16.9) g/dL Hct 33.3 L (37.5-50.1) % MCV 93.3 (83.0-100.0) fL MCH 31.4 (28.0-33.3) pg MCHC 33.6 (31.6-35.5) g/dL RDW 12.2 (11.5-14.5) % Plt Count 191 (140-400) K/mcL MPV 8.2 L (9.4-12.4) fL Immature Gran % 0.4 (0-4) % Seg Neutrophils % 58.1 % Lymphocytes % 27.2 % Monocytes % 10.6 % Eosinophils % 2.6 % Basophils % 1.1 % Neutrophils # 3.1 (1.6-8.9) K/mcL Lymphocytes # 1.5 (0.6-4.6) K/mcL Monocytes # 0.6 (0.0-1.3) K/mcL Eosinophils # 0.1 (0.0-0.6) K/mcL Basophils # 0.1 (0.0-0.2) K/mcL PT 11.4 (9.4-12.1) Seconds INR 1.0 APTT 30.1 (26.0-36.0) Seconds Sodium 137 (136-145) mEq/L Potassium 4.6 (3.5-5.1) mEq/L Chloride 106 (98-107) mEq/L Carbon Dioxide 25 (23-29) mEq/L BUN 15 (8-23) mg/dL Creatinine 0.94 (0.70-1.30) mg/dL Est GFR ( Amer) > 60 (> 60) Est GFR (Non-Af Amer) > 60 (> 60) BUN/Creatinine Ratio 16 (6-26) Glucose 125 H (70-105) mg/dL Calculated Osmolality 286 (280-300) Calcium 9.5 (8.6-10.3) mg/dL Total Bilirubin (0.3-1.0) mg/dL Direct Bilirubin (0.0-0.2) mg/dL Indirect Bilirubin (0.0-1.2) mg/dL AST (13-39) Units/L ALT (7-52) Units/L Alkaline Phosphatase (34-104) Units/L Troponin I < 0.03 (< 0.04) ng/mL Serum Total Protein (6.4-8.9) g/dL Albumin (3.5-5.7) g/dL Globulin (2.4-3.5) g/dL Albumin/Globulin Ratio (1.1-2.2) 06/10/18 Range/Units 14:22 WBC (4.3-11.1) K/mcL RBC (4.19-5.50) M/mcL Hgb (12.9-16.9) g/dL Hct (37.5-50.1) % MCV (83.0-100.0) fL MCH (28.0-33.3) pg MCHC (31.6-35.5) g/dL RDW (11.5-14.5) % Plt Count (140-400) K/mcL MPV (9.4-12.4) fL Immature Gran % (0-4) % Seg Neutrophils % % Lymphocytes % % Monocytes % % Eosinophils % % Basophils % % Neutrophils # (1.6-8.9) K/mcL Lymphocytes # (0.6-4.6) K/mcL Monocytes # (0.0-1.3) K/mcL Eosinophils # (0.0-0.6) K/mcL Basophils # (0.0-0.2) K/mcL PT (9.4-12.1) Seconds INR APTT (26.0-36.0) Seconds Sodium (136-145) mEq/L Potassium (3.5-5.1) mEq/L Chloride (98-107) mEq/L Carbon Dioxide (23-29) mEq/L BUN (8-23) mg/dL Creatinine (0.70-1.30) mg/dL Est GFR ( Amer) (> 60) Est GFR (Non-Af Amer) (> 60) BUN/Creatinine Ratio (6-26) Glucose (70-105) mg/dL Calculated Osmolality (280-300) Calcium (8.6-10.3) mg/dL Total Bilirubin 0.9 (0.3-1.0) mg/dL Direct Bilirubin 0.1 (0.0-0.2) mg/dL Indirect Bilirubin 0.8 (0.0-1.2) mg/dL AST 14 (13-39) Units/L ALT 11 (7-52) Units/L Alkaline Phosphatase 73 (34-104) Units/L Troponin I (< 0.04) ng/mL Serum Total Protein 6.7 (6.4-8.9) g/dL Albumin 4.1 (3.5-5.7) g/dL Globulin 2.6 (2.4-3.5) g/dL Albumin/Globulin Ratio 1.6 (1.1-2.2)
[2018-06-10 13:55] LABS: Basophils # 0.1 K/mcL (0.0-0.2); Basophils % 1.1 %; Eosinophils # 0.1 K/mcL (0.0-0.6); Eosinophils % 2.6 %; Hematocrit 33.3 % (37.5-50.1); Hemoglobin 11.2 g/dL (12.9-16.9); Immature Granulocytes % 0.4 % (0-4); Lymphocytes # 1.5 K/mcL (0.6-4.6); Lymphocytes % 27.2 %; Mean Corpuscular HGB Conc 33.6 g/dL (31.6-35.5); Mean Corpuscular Hemoglobin 31.4 pg (28.0-33.3); Mean Corpuscular Volume 93.3 fL (83.0-100.0); Mean Platelet Volume 8.2 fL (9.4-12.4); Monocytes # 0.6 K/mcL (0.0-1.3); Monocytes % 10.6 %; Neutrophils # 3.1 K/mcL (1.6-8.9); Platelet Count 191 K/mcL (140-400); Red Blood Count 3.57 M/mcL (4.19-5.50); Red Cell Distribution Width 12.2 % (11.5-14.5); Segmented Neutrophils % 58.1 %
[2018-06-10 14:14] LABS: BUN/Creatinine Ratio 16 (6-26); Blood Urea Nitrogen 15 mg/dL (8-23); Calcium 9.5 mg/dL (8.6-10.3); Carbon Dioxide 25 mEq/L (23-29); Chloride 106 mEq/L (98-107); Glucose 125 mg/dL (70-105); Osmolality,Calculated 286 (280-300); Potassium 4.6 mEq/L (3.5-5.1); Sodium 137 mEq/L (136-145); Troponin I < 0.03 ng/mL (< 0.04); eGFR For Non-African Americans > 60 (> 60)
[2018-06-10 14:42] LABS: Prothrombin Time 11.4 Seconds (9.4-12.1)
[2018-06-10 14:45] LABS: Activated Partial Thrombo Time 30.1 Seconds (26.0-36.0)
[2018-06-10 15:08] LABS: Albumin 4.1 g/dL (3.5-5.7); Albumin/Globulin Ratio 1.6 (1.1-2.2); Bilirubin,Direct 0.1 mg/dL (0.0-0.2); Bilirubin,Indirect 0.8 mg/dL (0.0-1.2); Bilirubin,Total 0.9 mg/dL (0.3-1.0); Globulin 2.6 g/dL (2.4-3.5); Total Protein 6.7 g/dL (6.4-8.9)
[2018-06-10] MEDS ORDERED: Aspirin 325 MG TABLET PO ONE (15:25)
[2018-06-10] MEDS ORDERED: Naloxone 0.4 MG/ML INJ IVP PRN (15:58)
[2018-06-10] MEDS ORDERED: Diphenoxylate/Atropine 1 TAB TABLET PO PRN (16:00)
--- NOTE | 2018-06-10 16:54 | Internal Med History&Physical ---
Date of Encounter: 06/10/18 Time of Encounter: 16:00 Internal Medicine - H&P: HPI Chief complaint: Chest pain and left sided upper and lower extremity weakness for a week History of present illness: Mr. Vasquez is a 63 year old male with pmh of CVA, diabetes, hypertension, aortic aneurysm presenting with complaints of chest pain and left upper and lower extremity weakness of about a week's duration. Patient says about a week ago, he was having a discussion with his after which he went to bed and began to feel sick with nausea , headache and blurry vision and chest pain which he describes as left sided and pressure like. He says he took 2 tablets of nitro and went to bed but continued to feel sick the next morning. When he woke up the next morning, he also notes he had a new weakness on his left upper and lower extremity. He describes it as being unable to bear weight on his left side and being unable to hold a cup to drink water. He also complains of slurred speech intermittently. He denies any other acute symptoms. he went to his PCP today who advised him to come to the ER. In the ER, he was given aspirin and a CT head was done. He is being admitted for further management Past Med Surg Social Fam HX - Past Medical History Medical history: aortic aneurysm, cancer, diabetes, hypertension, other Additional medical history: RENAL CELL CARCINOMA, CKD, PARKINSON'S, CHRONIC NECK PAIN, ASCVD, BASAL CELL CARCINOMA, OA, HYPOGONADISM, LIPOMA OF NECK, MRSA Psychiatric history: anxiety, depression - Past Surgical History Surgical History: angioplasty/stent, appendectomy, cancer surgery, cholecys tectomy, herniorrhaphy, orthopedic, other, sinus surgery, other Additional surgical history: Open heart surgery, partial nephrectomy - Social History Smoking Status: Never smoker Smokeless Tobacco Status: No Alcohol use: none Drug use: none - Family History Mother Family Member Ethnicity: Non- Living Status: Hx Family Cardiac Disorders: No Hx Family Respiratory Disorders: No Hx Family Cancer: Yes (Lung cancer) Hx Family GI Disorders: No Hx Family Endocrine Disorder: No Hx Family Neuromuscular Disorders: No Hx Family Neurologic Disorders: No Hx Family HEENT Disorders: No Hx Family Autoimmune Disorders: No Internal Medicine - H&P: Meds Albuterol Sulfate [Proair Hfa] 2 puff IH QID PRN 08/29/15 [History] Aspirin [Adult Low Dose Aspirin EC] 162 mg PO QAM 08/29/15 [History] Chlordiazepoxide [Librium] 25 mg PO DAILY 08/29/15 [History] Diphenoxylate/Atropine [Lomotil 2.5 mg/0.025 mg] 2 each PO TID PRN 08/29/15 [History] Ergocalciferol (VITAMIN D2) [Vitamin D2 (50,000 UNIT)] 50,000 unit PO MOWE 08/29/15 [History] Furosemide [Lasix] 20 mg PO QAM 08/29/15 [History] Isosorbide MONOnitrate (24 HR) [Imdur] 30 mg PO QPM 08/29/15 [History] Lisinopril [Zestril] 20 mg PO BID 08/29/15 [History] Nitroglycerin [Nitrostat] 0.4 mg SL Q5M PRN 08/29/15 [History] [place]-3/Dha/Epa/Fish Oil [Fish Oil 1,000 mg Softgel] 2,000 mg PO BID 08/29/15 [History] OxyCODONE/APAP 10/325 [Percocet 10/325 MG] 1 each PO Q6HR PRN 08/29/15 [History] Potassium Chloride [K-Tab ER] 20 meq PO QAM 08/29/15 [History] metFORMIN [Glucophage] 500 mg PO QAM 08/29/15 [History] Simvastatin [Zocor] 40 mg PO HS #30 tablet 09/01/15 [Rx] Carvedilol [Coreg] 25 mg PO BID #60 tablet 11/16/16 [Rx] Chlordiazepoxide [Librium] 50 mg PO HS 09/20/17 [History] Memantine HCl/Donepezil HCl [Namzaric 28 mg-10 mg Capsule] 1 cap PO DAILY 09/02 [History] Venlafaxine HCl [Venlafaxine HCl ER] 150 mg PO DAILY 09/20/17 [History] hydrOXYzine HCl [Hydroxyzine HCl] 25 mg PO DAILY 09/20/17 [History] lamoTRIgine [Lamictal] 100 mg PO DAILY 09/20/17 [History] Penicillin VK [Pencillin VK] 500 mg PO QID 01/08/19 [History] Allergy/AdvReac Type Severity Reaction Status Date / Time morphine Allergy Agitated Verified 03/27/18 16:11 naproxen [From Naprosyn] Allergy Rash Verified 03/27/18 16:11 propoxyphene [From Darvon] Allergy Rash Verified 03/27/18 16:11 ziprasidone [From Geodon] Allergy Rash Verified 03/27/18 16:11 All Systems PM: A 10-system review of systems was performed and is negative for pertinent findings except as documented above in the HPI. - Constitutional Constitutional: no chills, no fever(s), no night sweats - EENT Eyes: no change in vision, no discharge, no pain, no photophobia Ears: no ear discharge, no ear pain, no tinnitus Nose, mouth and throat: no dysphagia, no nasal discharge, no neck pain, no sore throat - Cardiovascular Cardiovascular ROS IM: chest pain, no diaphoresis, no dyspnea, no lightheadedness, no palpitations, no syncope - Respiratory Respiratory: no cough, no dyspnea, no wheezing, no excessive phlegm production - Gastrointestinal Gastrointestinal: no abdominal pain, no diarrhea, no hematemesis, no hematochezia, no melena, no nausea, no vomiting - Musculoskeletal Musculoskeletal ROS IM: no numbness, no tingling - Integumentary Integumentary IM: no rash, no unusual bruising - Neurological Neurological ROS: focal weakness, no confusion, no convulsions, no numbness, no tingling, no tremor(s) - Psychiatric Psychiatric: memory loss - Hematologic/Lymphatic Hematologic/Lymphatic: no easy bruising - Constitutional Vitals: Temp Pulse Resp Pulse Ox 97.5 F L 90 16 99 06/10/18 12:35 06/10/18 12:35 06/10/18 12:35 06/10/18 12:35 Exam: NAD - Head Head exam: Present: atraumatic, normocephalic - Eye Eye exam: Present: PERRL, conjuntiva pink, sclera anicteric Pupils: Present: PERRL - Neck Neck exam general surgery: Present: supple, trachea midline. Absent: lymphadenopathy - Respiratory Respiratory exam: Present: CTAB. Absent: accessory muscle use, rales, rhonchi, wheezes - Cardiovascular Cardiovascular exam: Present: RRR, +S1, +S2. Absent: diastolic murmur, gallop, rubs, systolic murmur - GI/Abdominal GI/Abdominal exam: Present: normal bowel sounds, soft, no peritoneal signs. Absent: distended, tenderness - Extremities Exam Extremities exam: Present: warm, radial pulses palpable and symmetrical. Absent: calf tenderness, cyanotic, pedal edema - Neurological Exam Neurological exam: Present: CN II-XII intact, oriented X3. Absent: pronater drift, facial droop, speech deficit Additional comments: 5/5 strength in right upper and lower extremities 4/5 strength in left upper and lower extremities - Skin Skin exam: Present: dry, intact Internal Med - H&P Results - Labs CBC & Chem 7: 06/10/18 13:39 06/10/18 13:39 Labs: Short CBC 06/10/18 Range/Units 13:39 WBC 5.4 (4.3-11.1) K/mcL Hgb 11.2 L (12.9-16.9) g/dL Hct 33.3 L (37.5-50.1) % Plt Count 191 (140-400) K/mcL Neutrophils # 3.1 (1.6-8.9) K/mcL BMP 06/10/18 13:39 Sodium 137 Potassium 4.6 Chloride 106 Carbon Dioxide 25 BUN 15 Creatinine 0.94 Glucose 125 H Calcium 9.5 Cardiac Enzymes 06/10/18 Range/Units 13:39 Troponin I < 0.03 (< 0.04) ng/mL Liver Function 06/10/18 Range/Units 14:22 Total Bilirubin 0.9 (0.3-1.0) mg/dL Direct Bilirubin 0.1 (0.0-0.2) mg/dL AST 14 (13-39) Units/L ALT 11 (7-52) Units/L Alkaline Phosphatase 73 (34-104) Units/L Albumin 4.1 (3.5-5.7) g/dL - Impressions ITS Impressions Chest X-Ray 06/10/18 13:34 IMPRESSION: No acute process. D/ / Saran Feliciano MD / Saran Feliciano MD Interpreting Provider: Saran Feliciano MD Head CT 06/10/18 13:50 IMPRESSION: No acute intracranial abnormality. D/ / César Lincoln MD / César Lincoln MD Interpreting Provider: César Lincoln MD - Assessment and plan (1) Weakness of left side of body Current Visit: Yes Status: Acute Assessment and plan: Pt complains of new left sided weakness of upper and lower extremities r/o acute stroke CT head negative for stroke in the ER. Will obtain MRI head, 2D echo and carotid ultrasound Continue aspirin and statin. PT and OT evaluation (2) Chest pain Current Visit: Yes Status: Acute Assessment and plan: Pt complains of left sided chest pain for a week. Has a cath within the last year which was normal. Trend troponins. Continue aspirin. F/u 2D echo Qualifiers: Chest pain type: chest pain on breathing Qualified Code(s): R07.1 - Chest pain on breathing; R07.81 - Pleurodynia (3) CAD (coronary artery disease) Current Visit: Yes Status: Chronic Assessment and plan: Continue aspirin, coreg and simvastatin Qualifiers: Associated angina: with unstable angina Qualified Code(s): I25.110 - Atherosclerotic heart disease of [place] coronary artery with unstable angina pectoris (4) COPD (chronic obstructive pulmonary disease) Current Visit: Yes Status: Chronic Assessment and plan: No acute exacerbation. Nebs as needed Qualifiers: COPD type: COPD with acute exacerbation Qualified Code(s): J44.1 - Chronic obstructive pulmonary disease with (acute) exacerbation (5) DM (diabetes mellitus) Current Visit: Yes Status: Chronic Assessment and plan: Continue insulin LDSS. Monitor fingersticks Qualifiers: Diabetes mellitus type: type 2 Qualified Code(s): E11.9 - Type 2 diabetes mellitus without complications (6) HTN (hypertension) Current Visit: Yes Status: Chronic Assessment and plan: Resume home meds Qualifiers: Hypertension type: essential hypertension Qualified Code(s): I10 - Essential (primary) hypertension (7) Infected tooth Current Visit: Yes Status: Acute Assessment and plan: Continue oral penicillin (8) DVT prophylaxis Current Visit: Yes Status: Acute Assessment and plan: heparin sc - Time Spent With Patient Total time spent is greater than 50% in coordination of care (as documented) at patient's floor/unit and/or counseling patient:
[2018-06-10] MEDS ORDERED: NON-FORMULARY MEDICATION 1 EACH EACH (Omega-3/Dha/Epa/Fish Oil [Fish Oil 1,000 Mg Softgel] PO SCH (21:00)
[2018-06-10] MEDS ORDERED: Perflutren Lipid Microsphere 1.3 ML in 0.9 % Sodium Chloride 8.7 ML IVP ONE (21:23)
--- NOTE | 2018-06-10 21:32 | Electrocardiograph Report ---
[facility] Test Date: 2018-06-10 Pat Name: [facility] Department: 104 Room: 3B49 Gender: M Framing Inspector: : 1955 Requested By: Raquel Graham Order Number: [id number] Reading MD: Teodoro Mccloud Measurements Intervals [place] Rate: 61 P: 60 UT: 212 QRS: 38 QRSD: 87 T: 44 QT: 425 QTc: 428 Interpretive Statements SINUS RHYTHM Electronically Signed On 06-10-2018 21:31:12 EST by Teodoro Mccloud
[2018-06-10] MEDS: Nitroglycerin 0.4 MG TAB.SUBL SL PRN ×2 (22:17→22:52)
[2018-06-10] MEDS: Isosorbide MONOnitrate (24 HR) 30 MG TAB.ER.24H PO SCH (22:38)
[2018-06-10] MEDS: *HR* OxyCODONE/APAP 10/325 TABLET PO PRN (22:44)
[2018-06-10] MEDS: Lisinopril 20 MG TABLET PO SCH (22:44)
--- NOTE | 2018-06-11 01:34 | Event Note ---
Date of Encounter: 06/11/18 Time of Encounter: 00:23 Called by nurse requesting to come see patient due to chest pain that is continuing longer than it has been. Assessed patient at bedside, continues to have unilateral weakness. States he has been having similar intermittent chest pain but this episode seems to be taking longer to resolve. EKG ordered, shows sinus lawrence. Troponins negative so far, repeat already ordered for 0400. Reviewed EKG and patient with Dr Ambriz.
[2018-06-11 07:05] LABS: Basophils # 0.1 K/mcL (0.0-0.2); Eosinophils # 0.2 K/mcL (0.0-0.6); Eosinophils % 4.3 %; Immature Granulocytes % 0.6 % (0-4); Lymphocytes # 1.6 K/mcL (0.6-4.6); Lymphocytes % 31.6 %; Mean Corpuscular HGB Conc 33.3 g/dL (31.6-35.5); Mean Corpuscular Hemoglobin 31.6 pg (28.0-33.3); Mean Corpuscular Volume 94.8 fL (83.0-100.0); Mean Platelet Volume 8.2 fL (9.4-12.4); Monocytes # 0.5 K/mcL (0.0-1.3); Monocytes % 9.6 %; Neutrophils # 2.6 K/mcL (1.6-8.9); Platelet Count 176 K/mcL (140-400); Red Blood Count 3.48 M/mcL (4.19-5.50); Red Cell Distribution Width 12.2 % (11.5-14.5); Segmented Neutrophils % 52.9 %
[2018-06-11 07:26] LABS: BUN/Creatinine Ratio 17 (6-26); Blood Urea Nitrogen 16 mg/dL (8-23); Carbon Dioxide 26 mEq/L (23-29); Chloride 104 mEq/L (98-107); Glucose 102 mg/dL (70-105); Magnesium 1.8 mg/dL (1.6-2.6); Osmolality,Calculated 287 (280-300); Phosphorous 4.7 mg/dL (2.7-4.5); Sodium 138 mEq/L (136-145); eGFR For Non-African Americans > 60 (> 60)
[2018-06-11] MEDS ORDERED: NON-FORMULARY MEDICATION 1 EACH EACH (Memantine Hcl/Donepezil Hcl [Namzaric 28 Mg-10 Mg Ca PO SCH (09:00)
[2018-06-11] MEDS ORDERED: Cholecalciferol (D-3) 1,000 UNIT TABLET PO SCH (09:00)
[2018-06-11] MEDS: Venlafaxine XR (24 HR) 150 MG CAP.ER.24H PO SCH (09:15)
[2018-06-11] MEDS: Aspirin Enteric Coated 81 MG Tablet PO SCH (09:16)
[2018-06-11] MEDS: Lisinopril 20 MG TABLET PO SCH ×2 (09:16→22:11)
[2018-06-11] MEDS: *HR* OxyCODONE/APAP 10/325 TABLET PO PRN ×2 (09:16→21:21)
[2018-06-11] MEDS: lamoTRIgine 100 MG TABLET PO SCH (09:16)
[2018-06-11] MEDS: Furosemide 40 MG TABLET PO SCH (09:16)
--- NOTE | 2018-06-11 17:47 | Neurology - Consult Note ---
Date of Encounter: 06/11/18 Time of Encounter: 17:42 Assessment and Plan (1) Weakness of left side of body Current Visit: Yes Status: Acute Patient has developed left-sided weakness including left arm and leg sparing the left face that has been going on since the last 6 days associated with significant pain involving the left arm shoulder chest and leg. The source of the pain is unclear at this moment. Patient does have history of lumbar sciatica in the past as well as left shoulder pain therefore some underlying orthopedic conditions me be the cause of his current weakness and pain. MRI of brain showed no evidence of new stroke. In addition, patient does not have any cranial nerve deficits therefore I do not believe that worsening of weakness is central in etiology. It may be beneficial to obtain imaging study to the left shoulder but I would defer this to primary medical team. It is noted that the patient is able to use his hands bilaterally to open a bag of utensils and the fact that the patient is able to maintain certain posture to his right hand and leg this indicate that the weakness is largely complicated by the presence of pain, on top of previous stroke. Agree with aspirin 162mg daily. Patient may benefit from physical therapy and pain management. (2) Parkinsonism Current Visit: Yes Status: Acute Questionable Parkinson's disease and Parkinson plus disease and due to presence of questionable vertical eye movements deficits. Patient has been evaluated at [facility] as well as his primary neurologist and that have been questions regarding the diagnosis of super nuclear palsy or Parkinson plus syndrome or even whether he has idiopathic Parkinson's disease or not. Patient is advised to follow-up with his primary neurologist for further recommendations. It is of note that during the examination the patient develops a staring spell when examining his eye movements which suggest that there may be some reliable nature in terms of validity of current neurological examination. At this moment, I would not make any further recommendations regarding the treatment of his Parkinson features. Again patient may benefit from physical therapy and pain management. Total time spent in this patient is more than 70 minutes, of which more than 50% of the time were used for direct face to face patient care and the rest for counseling and coordination of care. Qualifiers: Parkinsonism type: Parkinson's disease Qualified Code(s): G20 - Parkinson's disease History of Present Illness Chief complaint: left sided weakness and pain HPI: Mr. Vasquez is a 63 year old male with a past medical history significant for previous stroke, diabetes, dementia with lower body disease, Parkinson plus syndrome, history of ascending aorta replacement, recurrent left and knee instability, lumbar go with sciatica on the right side, gait disorder, claudication, who presented to the emergency room with chief complaint of newly onset left-sided weakness and pain. Regarding his current symptoms, the patient states that he is not sure it was a really problem, that he saw Dr. Mccracken about 6 days ago complaining of having chest pain to the left side as well as pain in his left arm and shoulder. Apparently, he has been having some baseline problems off and on in the past but since the last 6 days the pain in the chest and left arm and shoulder worsened to a point that it hurts when he bends his fingers on the left side. 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 He states that he had a stroke probably at about October or November last year caused left-sided weakness however, an MRI of brain that was all obtained during January 2018 showed no evidence of acute infarct. There is also no evidence of chronic or old cerebral infarct reported on the study. There is a mentioning of small punctate foci of susceptibility for microhemorrhages or small cavernoma. They regarding the reported left leg weakness the patient states that he is not sure there are related. He describes pain all over his leg that is related to movements of his left shoulder. Rita joseph states that if he moves his left leg all the left side hurts including his left chest. However, I did notice that the patient has reduced range of motion to the left arm however when the food he is ready the patient is able to use both hands to open the bag of utensils. Patient also has a questionable diagnosis of Parkinson plus syndrome. Patient has been evaluated at [facility] neurology as well as Dr. Saran Krishna here at [facility]. There has been a debate whether the patient has a form of Parkinson plus syndrome. I saw no resting tremors but reduced moments involving the left arm and leg with elevated muscle tension. Also of note is that when the patient is asked to follow with a hammer almost immediately the patient goes into a stair and not able to move either vertically or horizontally. Patient states that few months ago he he was able to do different things and able to work on a mobile home. Past Med Surg Social Fam HX - Past Medical History Medical history: aortic aneurysm, cancer, diabetes, hypertension, other Additional medical history: RENAL CELL CARCINOMA, CKD, PARKINSON'S, CHRONIC NECK PAIN, ASCVD, BASAL CELL CARCINOMA, OA, HYPOGONADISM, LIPOMA OF NECK, MRSA Psychiatric history: anxiety, depression - Past Surgical History Surgical History: angioplasty/stent, appendectomy, cancer surgery, cholecystectomy, herniorrhaphy, orthopedic, other, sinus surgery, other Additional surgical history: Open heart surgery, partial nephrectomy - Social History Smoking Status: Never smoker Smokeless Tobacco Status: No Alcohol use: none Drug use: none - Family History Father Living Status: Age at : 62 Cause of : accident Mother Family Member Ethnicity: Non- Living Status: Age at : 60 Cause of : cancer Hx Family Cardiac Disorders: No Hx Family Respiratory Disorders: No Hx Family Cancer: Yes (Lung cancer) Hx Family GI Disorders: No Hx Family Endocrine Disorder: No Hx Family Neuromuscular Disorders: No Hx Family Neurologic Disorders: No Hx Family HEENT Disorders: No Hx Family Autoimmune Disorders: No Medications and Allergies Albuterol Sulfate [Proair Hfa] 2 puff IH QID PRN 08/29/15 [History] Aspirin [Adult Low Dose Aspirin EC] 162 mg PO QAM 08/29/15 [History] Chlordiazepoxide [Librium] 25 mg PO DAILY 08/29/15 [History] Diphenoxylate/Atropine [Lomotil 2.5 mg/0.025 mg] 2 each PO TID PRN 08/29/15 [History] Ergocalciferol (VITAMIN D2) [Vitamin D2 (50,000 UNIT)] 50,000 unit PO MOWE 08/29/15 [History] Furosemide [Lasix] 20 mg PO QAM 08/29/15 [History] Isosorbide MONOnitrate (24 HR) [Imdur] 30 mg PO QPM 08/29/15 [History] Lisinopril [Zestril] 20 mg PO BID 08/29/15 [History] Nitroglycerin [Nitrostat] 0.4 mg SL Q5M PRN 08/29/15 [History] Louisa-3/Dha/Epa/Fish Oil [Fish Oil 1,000 mg Softgel] 2,000 mg PO BID 08/29/15 [History] OxyCODONE/APAP 10/325 [Percocet 10/325 MG] 1 each PO Q6HR PRN 08/29/15 [History] Potassium Chloride [K-Tab ER] 20 meq PO QAM 08/29/15 [History] metFORMIN [Glucophage] 500 mg PO QAM 08/29/15 [History] Simvastatin [Zocor] 40 mg PO HS #30 tablet 09/01/15 [Rx] Carvedilol [Coreg] 25 mg PO BID #60 tablet 11/16/16 [Rx] Chlordiazepoxide [Librium] 50 mg PO HS 09/20/17 [History] Memantine HCl/Donepezil HCl [Namzaric 28 mg-10 mg Capsule] 1 cap PO DAILY 09/20/17 [History] Venlafaxine HCl [Venlafaxine HCl ER] 150 mg PO DAILY 09/20/17 [History] hydrOXYzine HCl [Hydroxyzine HCl] 25 mg PO DAILY 09/20/17 [History] lamoTRIgine [Lamictal] 100 mg PO DAILY 09/20/17 [History] Penicillin VK [Pencillin VK] 500 mg PO QID 06/10/18 [History] Allergy/AdvReac Type Severity Reaction Status Date / Time morphine Allergy Agitated Verified 03/27/18 16:11 naproxen [From Naprosyn] Allergy Rash Verified 03/27/18 16:11 propoxyphene [From Darvon] Allergy Rash Verified 03/27/18 16:11 ziprasidone [From Geodon] Allergy Rash Verified 03/27/18 16:11 All Systems: The remainder of the systems were reviewed and are negative Physical Examination - Vital Signs Vital Signs: Initial Vital Signs Temp Pulse Resp Pulse Ox 97.5 F L 90 16 99 06/10/18 12:35 06/10/18 12:35 06/10/18 12:35 06/10/18 12:35 - Constitutional General appearance: other (Patient keeps his left arm and leg not moving but does not appear to be any acute distress.) - Neurologic Sensorimotor examination: intact (Grossly intact to pinprick, touch and vibration senses both operating lower extremities.) Detailed motor examination: other (Motor examination is somewhat unreliable in my opinion. Patient does have reduced range of motion to his left arm likely complicated by presence of pain.) Motor examination - right side: 5/5: deltoids, biceps, triceps, wrist flexion, wrist extension, product/industry consultant, hip flexors, tibialis Anterior, quadriceps, toe extension (EHL), plantarflexion Motor examination - left side: 4/5: deltoids, biceps, triceps, wrist flexion, wrist extension, hip flexors, product/industry consultant, quadriceps, tibialis Anterior, toe extension (EHL), plantarflexion Posture: other (Patient has reduced range of motion to left arm and leg. Very increased muscle tension when trying to move the patient's leg and arm passively on the left side.) Reflex and gait examination: other (Patient's gait is not assessed) Reflexes: Biceps: 2+, Triceps: 2+, Brachioradialis: 2+, Patella: 2+, Achilles: 2+ Mental Status Examination: awake, alert, oriented to person, oriented to place, oriented to time, follows commands appropriately, answers questions ap propriately, no agnosia, no aphasia, no aproxia Cranial nerve examination: PERRL, EOMI (Patient is able to make eye contact. However, as mentioned above, with the patient is asked to follow a moving hammer patient immediately goes into a stare. Loss of vertical [place] is apparent however, it is not clear this finding is reliable areas), visual eisenberg intact, corneal reflexes brisk symmetrically, sensory to face intact, mastication intact, no facial asymmetry is present, no dysarthria, hearing is intact symmetrically, soft palate elevates bilaterally upon phonation, gag reflex intact, flexes SCM and trapezius muscles symmetrically with full power, tongue protrudes midline, no atrophy or facial fasiculations present Cerebellar examination: performs finger to nose and heel to thomson symmetrically without ataxia (And able to perform due to reduced range of motion and left- sided weakness), no gait ataxia (Gait is not assessed.) Results - Laboratory Findings CBC and BMP: 06/11/18 06:49 06/11/18 06:49 Abnormal lab findings: Abnormal lab results RBC 3.48 M/mcL (4.19-5.50) L 06/11/18 06:49 Hgb 11.0 g/dL (12.9-16.9) L 06/11/18 06:49 Hct 33.0 % (37.5-50.1) L 06/11/18 06:49 MPV 8.2 fL (9.4-12.4) L 06/11/18 06:49 Phosphorus 4.7 mg/dL (2.7-4.5) H 06/11/18 06:49 - Diagnostic Findings Additional findings: MRI OF THE BRAIN WITHOUT CONTRAST 06/11/2018 9:39 am TECHNIQUE: Multiplanar multisequence MRI of the brain was performed without the administration of intravenous contrast. COMPARISON: 01/09/2018. HISTORY: Acute headache with left arm tingling. Initial evaluation. FINDINGS: INTRACRANIAL STRUCTURES/VENTRICLES: There is no evidence of an acute infarct. There is no mass effect or midline shift. There are a few scattered punctate foci of susceptibility within the supratentorial and infratentorial compartments, which may represent sequelae of prior micro hemorrhages versus cavernomas. Areas of T2 FLAIR hyperintensity are seen in the periventricular and subcortical white matter, which are nonspecific, but may represent chronic microvascular ischemic change. There is minimal global parenchymal volume loss. ORBITS: The visualized portion of the orbits demonstrate no acute abnormality. SINUSES: The visualized paranasal sinuses and mastoid air cells are well aerated. BONES/SOFT TISSUES: The bone marrow signal intensity appears normal. The soft tissues demonstrate no acute abnormality. MR/MR head/brain wo con IMPRESSION: 1. No acute intracranial abnormality. No acute infarct. 2. Minimal global parenchymal volume loss with minimal chronic microvascular ischemic change. 3. A few scattered punctate foci of susceptibility are seen in the supratentorial and infratentorial compartments. These could represent areas of prior microhemorrhage versus small cavernomas. D/ / Alcon Skinner MD / Alcon Skinner MD Interpreting Provider: Alcon Skinner MD Echo with Imaging Enhancement Agent Name: Camron Vasquez Date of Study: 06/10/2018 Date: 1955 Ht: 69.0 in Medical Record#: [id number] Age: 63 Wt: 247.0 lb Gender: Male BSA: 2.26 Order #: [id number] Location: [facility] Room #: [id number] Reading Physician: Paras Jaimes DO, HARDEEP, TANGELA BUCHANAN Ordering Physician: Genaro Oneal MD Hem Marker: Justyna Tapia Indications: Rule out acute cerebrovascular accident Impressions: LVEF 50-55%. Normal LV chamber size, wall thickness and function. Moderate left ventricular diastolic dysfunction. Atypical septal motion consistent with post-operative status. Normal right ventricular structure and function. Bioprosthetic aortic valve appears well seated. Leaflets are normal appearing. Normal function by Doppler. Mild tricuspid regurgitation. Mild-moderate pulmonary hypertension. Left Ventricular Wall Motion: Rest Echo Findings All wall segments showed normal motion. Findings: Study Quality * Technically adequate exam. ECG Findings * Sinus bradycardia. Left Ventricle * LVEF 50-55%. * Normal LV chamber size, wall thickness and function. * Moderate left ventricular diastolic dysfunction. * Atypical septal motion consistent with post-operative status. Right Ventricle * Normal right ventricular structure and function. Left Atrium * Moderately dilated left atrium. Right Atrium * Mildly dilated right atrium. Aortic Valve * Bioprosthetic aortic valve appears well seated. Leaflets are normal appearing. Normal function by Doppler. * No aortic regurgitation. * No significant prosthetic aortic stenosis. Mean gradient 10 mmHg. Mitral Valve * Normal mitral valve structure and function. * No mitral regurgitation. * No mitral stenosis. Tricuspid Valve * Normal tricuspid valve structure. * Mild tricuspid regurgitation. * Mild-moderate pulmonary hypertension. Pulmonic Valve * Pulmonic valve not well visualized. * No pulmonic regurgitation. Aorta * Normally sized aortic root. Pericardium * The pericardium appears normal. IVC * The IVC is not well evaluated. Pulmonary Artery * Pulmonary artery not well visualized. History Hypertension Diabetes Hypercholesteremia Valve Replacement AV Prosthesis Biologic 09/21/2017 a Previous Echo was performed. Contrast: Definity 1.3 ml in 8.7 ml of saline 4 ml. Agitated saline 20 ml. Measurements: BP: 176/ 88 2D Normal Values RVIDd: 4.04 cm <2.7 cm IVSd: 1.29 cm 0.6 - 1.0 cm LVIDd: 5.47 cm 3.7 - 5.6 cm LVPWd: 1.20 cm 0.6 - 1.1 cm LVIDs: 3.53 cm 1.5 - 3.6 cm AO: 2.10 cm < 4.0 cm LA: 4.10 cm 2.0 - 4.0cm %FS: 35.50 cm >25 % LVOT Diam: 2.00 cm LA volume: 81 Mitral Valve Pressure Time: 53.00 msec Valve Area: 4.15 cm2 Peak E: 1.08 m/sec Peak A: .49 m/sec E/A Ratio: 2.2 LVOT Peak Syed: .82 m/sec Mean Syed: .52 m/sec Peak Grad: 3.00 mmHg Mean Grad: 1.00 mmHg Aortic Valve Peak Syed: 2.10 m/sec Mean Syed: 1.47 m/sec Peak Grad: 18.00 mmHg Mean Grad: 10.00 mmHg Valve Area: 1.18 cm2 Tricuspid Valve TV Regurg Peak Grad: 41.00mmHg TV Regurg Peak Syed: 3.22m/sec Updated by Paras Jaimes DO, FACJoanna, TANGELA BUCHANAN on 06/11/2018 2:56:41 PM electronically signed on 06/11/2018 2:57:21 PM with status of Final Wall Motion [place]: 1=Normal, 2=Hypokinesis, 3=Akinesis, 4=Dyskinesis, 5=Aneurysmal, 6=Hyperkinetic, X=Not Visualized (Blank)=Missing Consult Discharge Plan - Plan Referrals: Uche Richard MD [Primary Care Provider] -
[2018-06-11] MEDS: Isosorbide MONOnitrate (24 HR) 30 MG TAB.ER.24H PO SCH (18:18)
[2018-06-11] MEDS: Cholecalciferol (D-3) 1,000 UNIT TABLET PO SCH (18:18)
--- NOTE | 2018-06-11 18:43 | Internal Med Progress Note ---
Hospitalist Progress Note - Encounter Date of Encounter: 06/11/18 Time of Encounter: 18:40 - Subjective Interval History: Pt states he has had progressive weakness and worsening gait disturbance. He also reports RUE weakness. He does have left sided residual weak ness from previous CVA. He denies fever, chills, N/V or diarrhea. He denies chest pain or SOB. - Exam Vitals: Temp Pulse Resp BP Pulse Ox 97.7 F 65 16 157/90 97 06/11/18 18:24 06/11/18 18:24 06/11/18 18:24 06/11/18 18:24 06/11/18 18:24 Exam: Exam: - Head Head exam: Present: atraumatic, normocephalic - Eye Eye exam: Present: PERRL, conjuntiva pink, sclera anicteric Pupils: Present: PERRL - Neck Neck exam general surgery: Present: supple, trachea midline. Absent: lymphadenopathy - Respiratory Respiratory exam: Present: CTAB. Absent: accessory muscle use, rales, rhonchi, wheezes - Cardiovascular Cardiovascular exam: Present: RRR, +S1, +S2. Absent: diastolic murmur, gallop, rubs, systolic murmur - GI/Abdominal GI/Abdominal exam: Present: normal bowel sounds, soft, no peritoneal signs. Absent: distended, tenderness - Extremities Exam Extremities exam: Present: warm, radial pulses palpable and symmetrical. Absent: calf tenderness, cyanotic, pedal edema - Neurological Exam Neurological exam: Present: CN II-XII intact, oriented X3. Absent: pronater drift, facial droop, speech deficit Additional comments: 5/5 strength in right upper and lower extremities 4/5 strength in left upper and lower extremities - Skin - Assessment and Plan (1) Weakness of left side of body Current Visit: Yes Status: Acute Assessment and Plan: Pt complained of new left sided weakness of upper and lower extremities. CT head negative for stroke in the ER. MRI brain negative for acute CVA. Continue aspirin and statin. PT and OT consulted. Consulted neurology Dr. Saucedo who recommends obtain spine MRI. ? Parkinsonism per Dr. Saucedo, pt had undergone eval at [facility]. (2) CAD (coronary artery disease) Current Visit: Yes Status: Chronic Assessment and Plan: Continue aspirin, coreg and simvastatin (3) COPD (chronic obstructive pulmonary disease) Current Visit: Yes Status: Chronic Assessment and Plan: No acute exacerbation. Nebs as needed (4) DM (diabetes mellitus) Current Visit: Yes Status: Chronic Assessment and Plan: Glucose stable. Will add SSI. Monitor fingersticks (5) HTN (hypertension) Current Visit: Yes Status: Chronic Assessment and Plan: Coreg, imdur, lisinopril (6) Chest pain Current Visit: Yes Status: Acute Assessment and Plan: Pt complains of left sided chest pain for a week. Has a cath within the last year which was normal. Trend troponins. Continue aspirin. 2D echo Impressions: LVEF 50-55%. Normal LV chamber size, wall thickness and function. Moderate left ventricular diastolic dysfunction. Atypical septal motion consistent with post-operative status. Normal right ventricular structure and function. Bioprosthetic aortic valve appears well seated. Leaflets are normal appearing. Normal function by Doppler. Mild tricuspid regurgitation. Mild-moderate pulmonary hypertension. (7) Infected tooth Current Visit: Yes Status: Acute Assessment and Plan: Continue oral penicillin DVT Prophylaxis: Lovenox - Summary of Assessment and Plan Summary of Assessment and Plan: History of present illness: Dr. Lam Mr. Vasquez is a 63 year old male with pmh of CVA, diabetes, hypertension, aortic aneurysm presenting with complaints of chest pain and left upper and lower extremity weakness of about a week's duration. Patient says about a week ago, he was having a discussion with his after which he went to bed and began to feel sick with nausea , headache and blurry vision and chest pain which he describes as left sided and pressure like. He says he took 2 tablets of nitro and went to bed but continued to feel sick the next morning. When he woke up the next morning, he also notes he had a new weakness on his left upper and lower extremity. He describes it as being unable to bear weight on his left side and being unable to hold a cup to drink water. He also complains of slurred speech intermittently. He denies any other acute symptoms. he went to his PCP today who advised him to come to the ER. In the ER, he was given aspirin and a CT head was done. He is being admitted for further management - Time Spent with Patient Total time spent is greater than 50% in coordination of care (as documented) at patient's floor/unit and/or counseling patient: less than 15 minutes Plan of Care Discussed with: patient Internal Medicine: Result - Labs CBC & Chem 7: 06/11/18 06:49 06/11/18 06:49 Labs: Short CBC 06/11/18 Range/Units 06:49 WBC 4.9 (4.3-11.1) K/mcL Hgb 11.0 L (12.9-16.9) g/dL Hct 33.0 L (37.5-50.1) % Plt Count 176 (140-400) K/mcL Neutrophils # 2.6 (1.6-8.9) K/mcL BMP 06/11/18 06:49 Sodium 138 Potassium 4.0 Chloride 104 Carbon Dioxide 26 BUN 16 Creatinine 0.93 Glucose 102 Calcium 9.0 Cardiac Enzymes 06/10/18 06/11/18 Range/Units 22:08 06:49 Troponin I < 0.03 < 0.03 (< 0.04) ng/mL - ABG Interpretation ABG results: PT/INR, D-dimer PT 11.4 Seconds (9.4-12.1) 06/10/18 14:22 - Impressions Impressions Brain MRI 06/11/18 16:05 IMPRESSION: 1. No acute intracranial abnormality. No acute infarct. 2. Minimal global parenchymal volume loss with minimal chronic microvascular ischemic change. 3. A few scattered punctate foci of susceptibility are seen in the supratentorial and infratentorial compartments. These could represent areas of prior microhemorrhage versus small cavernomas. D/ / Alcon Skinner MD / Alcon Skinner MD Interpreting Provider: Alcon Skinner MD Consult Discharge Plan - Plan Referrals: Uche Richard MD [Primary Care Provider] - (2) CAD (coronary artery disease) Qualifiers: Associated angina: with unstable angina Qualified Code(s): I25.110 - Atherosclerotic heart disease of [place] coronary artery with unstable angina pectoris (3) COPD (chronic obstructive pulmonary disease) Qualifiers: COPD type: COPD with acute exacerbation Qualified Code(s): J44.1 - Chronic obstructive pulmonary disease with (acute) exacerbation (4) DM (diabetes mellitus) Qualifiers: Diabetes mellitus type: type 2 Qualified Code(s): E11.9 - Type 2 diabetes mellitus without complications (5) HTN (hypertension) Qualifiers: Hypertension type: essential hypertension Qualified Code(s): I10 - Essential (primary) hypertension (6) Chest pain Qualifiers: Chest pain type: chest pain on breathing Qualified Code(s): R07.1 - Chest pain on breathing; R07.81 - Pleurodynia
[2018-06-12] MEDS ORDERED: *HR* Enoxaparin 40 MG/0.4 ML SYRINGE SQ SCH (06:00)
[2018-06-12] MEDS: Aspirin Enteric Coated 81 MG Tablet PO SCH (08:45)
[2018-06-12] MEDS: Lisinopril 20 MG TABLET PO SCH (08:45)
[2018-06-12] MEDS: Furosemide 40 MG TABLET PO SCH (08:46)
[2018-06-12] MEDS: Venlafaxine XR (24 HR) 150 MG CAP.ER.24H PO SCH (08:46)
[2018-06-12] MEDS: *HR* OxyCODONE/APAP 10/325 TABLET PO PRN (08:46)
[2018-06-12] MEDS: lamoTRIgine 100 MG TABLET PO SCH (08:47)
[2018-06-12] MEDS: Cholecalciferol (D-3) 1,000 UNIT TABLET PO SCH (08:47)
--- NOTE | 2018-06-12 15:44 | Discharge Summary ---
- NOTES TO OUTPATIENT PROVIDER Notes to Outpatient Provider: PCP in 5 to 7 days. Follow up with neurology at [facility] Date of Encounter: 06/12/18 Time of Encounter: 15:44 - Discharge Diagnosis (1) Weakness of left side of body Priority: Primary Status: Acute Assessment and Plan: Pt complained of new left sided weakness of upper and lower extremities. Today, 06/12/18, Pt ambulating in room with his cane without any assistance or difficulty CT head negative for stroke in the ER. MRI brain negative for acute CVA. Continue aspirin and statin. PT and OT consulted. Consulted neurology Dr. Saucedo who recommended obtain spine MRI, which has been reviewed. ? Parkinsonism per Dr. Saucedo, pt had undergone extensive eval at [facility]. Evaluated by PT/OT and offered rehab and [facility] services and refused both. (2) CAD (coronary artery disease) Priority: Secondary Status: Chronic Assessment and Plan: Continue aspirin, coreg and simvastatin Qualifiers: Associated angina: with unstable angina Qualified Code(s): I25.110 - Atherosclerotic heart disease of [place] coronary artery with unstable angina pectoris (3) COPD (chronic obstructive pulmonary disease) Priority: Secondary Status: Chronic Assessment and Plan: No acute exacerbation. Nebs as needed Qualifiers: COPD type: COPD with acute exacerbation Qualified Code(s): J44.1 - Chronic obstructive pulmonary disease with (acute) exacerbation (4) DM (diabetes mellitus) Priority: Secondary Status: Chronic Assessment and Plan: Glucose stable. Will add SSI. Monitor fingersticks Qualifiers: Diabetes mellitus type: type 2 Qualified Code(s): E11.9 - Type 2 diabetes mellitus without complications (5) HTN (hypertension) Priority: Secondary Status: Chronic Assessment and Plan: Coreg, imdur, lisinopril Qualifiers: Hypertension type: essential hypertension Qualified Code(s): I10 - Essential (primary) hypertension (6) Chest pain Priority: Secondary Status: Acute Assessment and Plan: Pt complains of left sided chest pain for a week. Has a cath within the last year which was normal. Trend troponins. Continue aspirin. 2D echo Impressions: LVEF 50-55%. Normal LV chamber size, wall thickness and function. Moderate left ventricular diastolic dysfunction. Atypical septal motion consistent with post-operative status. Normal right ventricular structure and function. Bioprosthetic aortic valve appears well seated. Leaflets are normal appearing. Normal function by Doppler. Mild tricuspid regurgitation. Mild-moderate pulmonary hypertension. Qualifiers: Chest pain type: chest pain on breathing Qualified Code(s): R07.1 - Chest pain on breathing; R07.81 - Pleurodynia (7) Infected tooth Priority: Secondary Status: Acute Assessment and Plan: Continue oral penicillin Hospital course: History of present illness: Dr. Oneal Mr. Vasquez is a 63 year old male with pmh of CVA, diabetes, hypertension, aortic aneurysm presenting with complaints of chest pain and left upper and lower extremity weakness of about a week's duration. Patient says about a week ago, he was having a discussion with his after which he went to bed and began to feel sick with nausea , headache and blurry vision and chest pain which he describes as left sided and pressure like. He says he took 2 tablets of nitro and went to bed but continued to feel sick the next morning. When he woke up the next morning, he also notes he had a new weakness on his left upper and lower extremity. He describes it as being unable to bear weight on his left side and being unable to hold a cup to drink water. He also complains of slurred speech intermittently. He denies any other acute symptoms. he went to his PCP today who advised him to come to the ER. In the ER, he was given aspirin and a CT head was done. He is being admitted for further management Discharge discussed with: patient - Time Spent with Patient Total time spent providing and/or coordinating discharge services: Greater than 30 minutes - Discharge Medications Home Medications: Albuterol Sulfate [Proair Hfa] 2 puff IH QID PRN 08/29/15 [History] Aspirin [Adult Low Dose Aspirin EC] 162 mg PO QAM 08/29/15 [History] Chlordiazepoxide [Librium] 25 mg PO DAILY 08/29/15 [History] Diphenoxylate/Atropine [Lomotil 2.5 mg/0.025 mg] 2 each PO TID PRN 08/29/15 [History] Ergocalciferol (VITAMIN D2) [Vitamin D2 (50,000 UNIT)] 50,000 unit PO MOWE 08/29/15 [History] Furosemide [Lasix] 20 mg PO QAM 08/29/15 [History] Isosorbide MONOnitrate (24 HR) [Imdur] 30 mg PO QPM 08/29/15 [History] Lisinopril [Zestril] 20 mg PO BID 08/29/15 [History] Nitroglycerin [Nitrostat] 0.4 mg SL Q5M PRN 08/29/15 [History] [place]-3/Dha/Epa/Fish Oil [Fish Oil 1,000 mg Softgel] 2,000 mg PO BID 08/29/15 [History] OxyCODONE/APAP 10/325 [Percocet 10/325 MG] 1 each PO Q6HR PRN 08/29/15 [History] Potassium Chloride [K-Tab ER] 20 meq PO QAM 08/29/15 [History] metFORMIN [Glucophage] 500 mg PO QAM 08/29/15 [History] Simvastatin [Zocor] 40 mg PO HS #30 tablet 09/01/15 [Rx] Carvedilol [Coreg] 25 mg PO BID #60 tablet 11/16/16 [Rx] Chlordiazepoxide [Librium] 50 mg PO HS 09/20/17 [History] Memantine HCl/Donepezil HCl [Namzaric 28 mg-10 mg Capsule] 1 cap PO DAILY 09/20/17 [History] Venlafaxine HCl [Venlafaxine HCl ER] 150 mg PO DAILY 09/20/17 [History] hydrOXYzine HCl [Hydroxyzine HCl] 25 mg PO DAILY 09/20/17 [History] lamoTRIgine [Lamictal] 100 mg PO DAILY 09/20/17 [History] Penicillin VK [Pencillin VK] 500 mg PO QID 06/10/18 [History] Allergies/Adverse Reactions: Allergy/AdvReac Type Severity Reaction Status Date / Time morphine Allergy Agitated Verified 03/27/18 16:11 naproxen [From Naprosyn] Allergy Rash Verified 03/27/18 16:11 propoxyphene [From Darvon] Allergy Rash Verified 03/27/18 16:11 ziprasidone [From Geodon] Allergy Rash Verified 03/27/18 16:11 Date of admission: 06/11/18 15:55 Primary care physician: Uche Richard MD Consults: 06/10/18 16:07 Consult to Physical Therapy [CONS] Routine Comment: Evaluate, develop and implement POC Reason for Consult: left upper ad lower extremity weakness Does patient have active BEDREST order?: No Is patient medically & hemodynamically stable?: Yes Patient assessed for mobility or mobilized this visit?: No 06/10/18 18:12 Consult to Occupational Therapy [CONS] Routine Comment: Evaluate, develop and implement POC Reason for Consult: weakness Does patient have active BEDREST order?: No Is patient medically & hemodynamically stable?: Yes Patient assessed for mobility or mobilized this visit?: No 06/11/18 15:31 Consult to Neurology [CONS] Routine Consulting Provider: [facility] Reason for Consult: unsteady gait Call Completed: Yes - Constitutional Vitals: Temp Pulse Resp BP Pulse Ox 97.5 F L 61 15 113/63 94 06/12/18 11:48 06/12/18 11:48 06/12/18 11:48 06/12/18 11:48 06/12/18 11:48 Exam: Exam: - Head Head exam: Present: atraumatic, normocephalic - Eye Eye exam: Present: PERRL, conjuntiva pink, sclera anicteric Pupils: Present: PERRL - Neck Neck exam general surgery: Present: supple, trachea midline. Absent: lymphadenopathy - Respiratory Respiratory exam: Present: CTAB. Absent: accessory muscle use, rales, rhonchi, wheezes - Cardiovascular Cardiovascular exam: Present: RRR, +S1, +S2. Absent: diastolic murmur, gallop, rubs, systolic murmur - GI/Abdominal GI/Abdominal exam: Present: normal bowel sounds, soft, no peritoneal signs. Absent: distended, tenderness - Extremities Exam Extremities exam: Present: warm, radial pulses palpable and symmetrical. Absent: calf tenderness, cyanotic, pedal edema - Neurological Exam Neurological exam: Present: CN II-XII intact, oriented X3. Absent: pronater drift, facial droop, speech deficit Additional comments: 5/5 strength in right upper and lower extremities 4/5 strength in left upper and lower extremities - Skin - Patient Status Disposition: Home, Self-Care Condition: Good Overall status at discharge: patient is back to baseline - Discharge Instructions Follow Up With: Uche Richard MD [Primary Care Provider] - - Diet and Activity Activity: increase activity as tolerated Diet: diabetic diet
[2018-06-12 15:58] VITALS: BP 127/77
--- NOTE | 2018-06-12 16:58 | Neurology Progress Note ---
Date of Encounter: 06/12/18 Time of Encounter: 16:52 Assessment and Plan (1) Weakness of left side of body Current Visit: Yes Status: Acute Likely related Parkinson disease and he also has thoracic spinal canal stenosis at the level of T9-T10 and T10-T11 causing moderate spinal canal stenosis and neuroforaminal narrowing. This could the source of his back pain and leg pain. Patient should be evaluated by spine surgery, if not inpatient, then as an ou tpatient basis within 1-2 weeks. (2) Parkinsonism Current Visit: Yes Status: Acute Questionable Parkinson's disease and Parkinson plus disease and due to presence of questionable vertical eye movements deficits. [facility] as well as his primary neurologist and that have been questions regarding the diagnosis of super nuclear palsy or Parkinson plus syndrome or even whether he has idiopathic Parkinson's disease or not. Patient is advised to follow-up with his primary neurologist for further recommendations. It is of note that during the examination the patient develops a staring spell when examining his eye movements which suggest that there may be some reliable nature in terms of validity of current neurological examination. At this moment, I would not make any further recommendations regarding the treatment of his Parkinson features. Again patient may benefit from physical therapy and pain management. Qualifiers: Parkinsonism type: Parkinson's disease Qualified Code(s): G20 - Parkinson's disease (3) Thoracic spinal stenosis Current Visit: Yes Status: Acute At the level of T9-10 and T10-T11. as well as lumbar spinal canal stenosis at the level of L3-L4. Patient needs spinal consultation this can certainly be done as an outpatient within 1-2 weeks Subjective Principal diagnosis: left sided weakness and pain Interval history: Patient seen and examined. HE is doing slightly better in terms of left sided weakness and pain and chest pain. But overall speaking, the pain is still there on the left side of body. Completed MRI of cervical, thoracic and lumbar spine and images were reviewed personally. MRI of cervical spine showed no spinal cord compression or signal changes. MRI of T-spine however, shows disc herniation at the level of T10-T11. There is also evidence of lumbar spinal canal stenosis. Objective - Constitutional Vitals: Temp Pulse Resp BP Pulse Ox 97.4 F L 62 18 127/77 94 06/12/18 15:57 06/12/18 15:57 06/12/18 15:57 06/12/18 15:57 06/12/18 15:57 - Neurological Exam Sensorimotor examination: Present: intact (Grossly intact to pinprick, touch and vibration senses both operating lower extremities.) Motor Examination: Present: other (Motor examination is somewhat unreliable in my opinion. Patient does have reduced range of motion to his left arm likely complicated by presence of pain.) Motor examination - right side: 5/5: deltoids, biceps, triceps, wrist flexion, wrist extension, automation software engineer, hip flexors, tibialis Anterior, quadriceps, toe extension (EHL), plantarflexion Motor examination - left side: 4/5: deltoids, biceps, triceps, wrist flexion, wrist extension, hip flexors, automation software engineer, quadriceps, tibialis Anterior, toe extension (EHL), plantarflexion Posture: Present: other (Patient has reduced range of motion to left arm and leg. Very increased muscle tension when trying to move the patient's leg and a rm passively on the left side.) Reflex and gait examination: other (Patient's gait is not assessed) Mental Status Examination: Present: awake, alert, oriented to person, oriented to place, oriented to time, follows commands appropriately, answers questions appropriately, no agnosia, no aphasia, no aproxia Cranial nerve examination: Present: PERRL, EOMI (Patient is able to make eye contact. However, as mentioned above, with the patient is asked to follow a moving hammer patient immediately goes into a stare. Loss of vertical [place] is apparent however, it is not clear this finding is reliable areas), visual eisenberg intact, corneal reflexes brisk symmetrically, sensory to face intact, mastication intact, no facial asymmetry is present, no dysarthria, hearing is intact symmetrically, soft palate elevates bilaterally upon phonation, gag reflex intact, flexes SCM and trapezius muscles symmetrically with full power, tongue protrudes midline, no atrophy or facial fasiculations present Cerebellar examination: Present: performs finger to nose and heel to [place] symmetrically without ataxia (And able to perform due to reduced range of motion and left-sided weakness), no gait ataxia (Gait is not assessed.) Results - Laboratory Findings CBC and BMP: 06/11/18 06:49 06/11/18 06:49 Abnormal lab findings: Abnormal lab results RBC 3.48 M/mcL (4.19-5.50) L 06/11/18 06:49 Hgb 11.0 g/dL (12.9-16.9) L 06/11/18 06:49 Hct 33.0 % (37.5-50.1) L 06/11/18 06:49 MPV 8.2 fL (9.4-12.4) L 06/11/18 06:49 POC Glucose 165 mg/dL (70-99) H 06/11/18 20:25 Phosphorus 4.7 mg/dL (2.7-4.5) H 06/11/18 06:49 Consult Discharge Plan - Plan Referrals: Uche Richard MD [Primary Care Provider] - 06/17/18 1:15 pm (Will have the appointment with the [facility])
--- NOTE | 2018-06-12 17:53 | Electrocardiograph Report ---
[address] [place] [address] Test Date: 2018-06-11 Pat Name: [facility] Department: [id number] Room: 3B Gender: M [place] Opener: JAROCHO : 1955 Requested By: Mac Diaz Order Number: [id number] Reading MD: Reshma Wheeler Measurements Intervals [place] Rate: 58 P: 74 MI: 191 QRS: -5 QRSD: 91 T: 65 QT: 418 QTc: 415 Interpretive Statements SINUS BRADYCARDIA INFERIOR MYOCARDIAL INFARCTION, OF INDETERMINATE AGE Electronically Signed On 06-12-2018 17:51:21 EST by Reshma Wheeler
--- NOTE | 2018-06-13 15:01 | Event Note ---
Date of Encounter: 06/13/18 Time of Encounter: 15:01 Per Alphonse, unit controller, pt states he does not want to see Dr. Garsia and states "I hate him!" He stated last time he spoke with Dr. Garsia, there was conflict and he stated " we did not get along." Pt advised to call Dr. Garsia's office if he wanted to reschedule the appointment. Pt wrote the phone number down and read it back to the unit controller. Prior to discharge, pt also refused HHC service and rehab services and stated he did not get along with them and had some choice words regarding their services. Pt given office number to call spine surgeon office for further recommendations.
== END 2018-06-12 17:30 | disposition home or self-care (01) | DRG 57 ==
LOC: 3BNU 12:32 → EMEROOARM 12:32 → SUATTDRO 17:38 → 3BNU 20:20
PROVIDERS: ADMIT Hospitalist; ATTEND Family Medicine

== ENCOUNTER 2019-06-28 16:17 | Inpatient (IN) ==
[2019-06-28 17:00] LABS: Basophils # 0.1 K/mcL (0.0-0.2); Basophils % 0.5 %; Eosinophils % 0.4 %; Hematocrit 36.7 % (37.5-50.1); Hemoglobin 12.5 g/dL (12.9-16.9); Immature Granulocytes % 0.3 % (0-4); Lymphocytes # 1.3 K/mcL (0.6-4.6); Lymphocytes % 12.9 %; Mean Corpuscular HGB Conc 34.1 g/dL (31.6-35.5); Mean Corpuscular Volume 93.9 fL (83.0-100.0); Mean Platelet Volume 8.4 fL (9.4-12.4); Monocytes # 0.9 K/mcL (0.0-1.3); Monocytes % 8.7 %; Neutrophils # 7.6 K/mcL (1.6-8.9); Platelet Count 199 K/mcL (140-400); Red Blood Count 3.91 M/mcL (4.19-5.50); Red Cell Distribution Width 12.5 % (11.5-14.5); Segmented Neutrophils % 77.2 %; White Blood Count 9.8 K/mcL (4.3-11.1)
[2019-06-28 17:03] LABS: INR 1.1; Prothrombin Time 12.3 Seconds (9.4-12.1)
[2019-06-28 17:06] LABS: Activated Partial Thrombo Time 30.7 Seconds (26.0-36.0)
[2019-06-28 17:21] LABS: Alanine Aminotransferase 19 Units/L (7-52); Albumin 4.4 g/dL (3.5-5.7); Albumin/Globulin Ratio 1.6 (1.1-2.2); Alkaline Phosphatase 89 Units/L (34-104); Aspartate Amino Transferase 17 Units/L (13-39); BUN/Creatinine Ratio 16 (6-26); Bilirubin,Direct 0.3 mg/dL (0.0-0.2); Bilirubin,Indirect 1.3 mg/dL (0.0-1.0); Bilirubin,Total 1.6 mg/dL (0.3-1.0); Blood Urea Nitrogen 16 mg/dL (8-23); Carbon Dioxide 24 mEq/L (23-29); Chloride 100 mEq/L (98-107); Creatine Kinase 86 Units/L (30-223); Globulin 2.8 g/dL (2.4-3.5); Glucose 166 mg/dL (70-105); Osmolality,Calculated 287 (280-300); Sodium 136 mEq/L (136-145); Total Protein 7.2 g/dL (6.4-8.9); Troponin I 0.03 ng/mL (< 0.04); eGFR For African Americans > 60 (> 60); eGFR For Non-African Americans > 60 (> 60)
[2019-06-28 17:34] LABS: Thyroid Stimulating Hormone 0.962 mcIU/mL (0.340-5.600)
[2019-06-28] MEDS ORDERED: cefTRIAXone 1,000 MG in Water for inj. (sterile) 10 ML IVP ONE (18:04)
[2019-06-28] MEDS ORDERED: Azithromycin 500 MG in 0.9 % Sodium Chloride 250 ML IVPB ONE (18:04)
[2019-06-28 19:59] LABS: Bilirubin,Urine Small (Negative); Blood,Urine Negative (Negative); Clarity,Urine Clear (Clear); Color,Urine Dark Yellow (Yellow); Glucose,Urine (UA) 100 mg/dL (Normal); Ketones,Urine Trace mg/dL (Negative); Leukocyte Esterase,Urine Negative (Negative); Nitrite,Urine Negative (Negative); PH,Urine 5.5 pH Units (5.0-8.0); Protein,Urine Negative (Neg-Trace); Specific Gravity,Urine 1.025 (1.010-1.025); Urobilinogen,Urine Normal (Normal)
[2019-06-28] MEDS ORDERED: D5% in Water 1,000 ML IVC PRN (21:10)
[2019-06-28] MEDS ORDERED: *HR* Dextrose 50 % in Water (Syg) 50 ML SYRINGE IVP PRN (21:10)
[2019-06-28] MEDS ORDERED: Dextrose Gel 15 GM/37.5 ML TUBE PO PRN ×2 (21:10)
[2019-06-28] MEDS ORDERED: Albuterol 2.5 MG/3 ML NEBULIZER IH PRN (21:10)
[2019-06-28] MEDS ORDERED: Naloxone 0.4 MG/ML INJ IVP PRN (21:10)
[2019-06-28 21:44] LABS: VBG HCO3 24 mEq/L (21-27); VBG PCO2 37 mmHg (41-51); VBG PH 7.42 pH Units (7.32-7.42); VBG PO2 118 mmHg (25-50)
[2019-06-28] MEDS: Ipratropium/Albuterol Neb 3 ML IH SCH (22:09)
[2019-06-28] MEDS ORDERED: Furosemide 40 MG/4 ML VIAL IVP SCH (22:22)
[2019-06-29 00:44] LABS: Bilirubin,Urine Negative (Negative); Blood,Urine Negative (Negative); Clarity,Urine Clear (Clear); Color,Urine Yellow (Yellow); Glucose,Urine (UA) Normal (Normal); Ketones,Urine Negative (Negative); Leukocyte Esterase,Urine Negative (Negative); Nitrite,Urine Negative (Negative); Protein,Urine Negative (Neg-Trace); Specific Gravity,Urine 1.012 (1.010-1.025); Urobilinogen,Urine Normal (Normal)
[2019-06-29] MEDS: Ipratropium/Albuterol Neb 3 ML IH SCH ×4 (03:32→22:24)
[2019-06-29 04:43] LABS: Basophils # 0.1 K/mcL (0.0-0.2); Basophils % 0.6 %; Eosinophils # 0.1 K/mcL (0.0-0.6); Eosinophils % 1.1 %; Hematocrit 37.1 % (37.5-50.1); Hemoglobin 12.5 g/dL (12.9-16.9); Immature Granulocytes % 0.5 % (0-4); Lymphocytes # 1.7 K/mcL (0.6-4.6); Lymphocytes % 19.3 %; Mean Corpuscular HGB Conc 33.7 g/dL (31.6-35.5); Mean Corpuscular Hemoglobin 31.6 pg (28.0-33.3); Mean Corpuscular Volume 93.9 fL (83.0-100.0); Mean Platelet Volume 8.8 fL (9.4-12.4); Monocytes # 0.9 K/mcL (0.0-1.3); Monocytes % 10.8 %; Neutrophils # 5.9 K/mcL (1.6-8.9); Platelet Count 202 K/mcL (140-400); Red Blood Count 3.95 M/mcL (4.19-5.50); Red Cell Distribution Width 12.4 % (11.5-14.5); Segmented Neutrophils % 67.7 %; White Blood Count 8.7 K/mcL (4.3-11.1)
[2019-06-29 04:55] LABS: BUN/Creatinine Ratio 14 (6-26); Blood Urea Nitrogen 14 mg/dL (8-23); Carbon Dioxide 26 mEq/L (23-29); Chloride 100 mEq/L (98-107); Glucose 153 mg/dL (70-105); Magnesium 1.5 mg/dL (1.6-2.6); Osmolality,Calculated 292 (280-300); Phosphorous 3.5 mg/dL (2.7-4.5); Potassium 3.3 mEq/L (3.5-5.1); Sodium 139 mEq/L (136-145); eGFR For African Americans > 60 (> 60); eGFR For Non-African Americans > 60 (> 60)
[2019-06-29] MEDS ORDERED: Vancomycin (wt based) 1,000 MG VIAL IVPB SCH (05:00)
[2019-06-29 05:18] LABS: Immature Reticulocyte % 12.7 % (11.0-38.0); Retculocyte # 0.06 M/mcL (0.05-0.10); Reticulocyte % 1.6 % (1.6-2.8)
[2019-06-29 05:24] LABS: Lactate Dehydrogenase 177 Units/L (140-271)
[2019-06-29] MEDS ORDERED: Insulin LISPRO 300 UNITS/3 ML VIAL SQ SCH ×2 (07:30→12:00)
[2019-06-29 07:37] LABS: Estimated Average Glucose 154 mg/dl
[2019-06-29] MEDS ORDERED: Azithromycin 250 MG TABLET PO SCH (09:00)
[2019-06-29] MEDS: cefTRIAXone 1,000 MG in Water for inj. (sterile) 10 ML IVP SCH (09:06)
[2019-06-29 09:30] LABS: Adenovirus Not Detected (Not Detect); Bordetella Pertussis Not Detected (Not Detect); Chlamydophila pneumoniae Not Detected (Not Detect); Coronavirus 229E Not Detected (Not Detect); Coronavirus HKU1 Not Detected (Not Detect); Coronavirus NL63 Not Detected (Not Detect); Coronavirus OC43 Not Detected (Not Detect); Human Metapneumovirus Not Detected (Not Detect); Human Rhinovirus/Enterovirus DETECTED (Not Detect); Influenza A Subtype 2009 H1 Not Detected (Not Detect); Influenza B Not Detected (Not Detect); Mycoplasma pneumoniae Not Detected (Not Detect); Parainfluenza Virus 1 Not Detected (Not Detect); Parainfluenza Virus 2 Not Detected (Not Detect); Parainfluenza Virus 3 Not Detected (Not Detect); Parainfluenza Virus 4 Not Detected (Not Detect); Respiratory Syncytial Virus Not Detected (Not Detect)
[2019-06-29] MEDS ORDERED: E-Z-PAQUE (BARIUM SULF) SUSP 1 BOTTLE PO ONE (10:13)
[2019-06-29] MEDS ORDERED: E-Z-HD (BARIUM SULF) SUSPENSION PO ONE (10:13)
[2019-06-29] MEDS ORDERED: Perflutren Lipid Microsphere 1.3 ML in 0.9 % Sodium Chloride 8.7 ML IVP ONE (10:24)
[2019-06-29] MEDS: Insulin LISPRO 300 UNITS/3 ML VIAL SQ SCH ×3 (14:29→21:21)
[2019-06-29] MEDS: Azithromycin 500 MG in 0.9 % Sodium Chloride 250 ML IVPB SCH (14:31)
[2019-06-29] MEDS ORDERED: *HR* OxyCODONE/APAP 10/325 TABLET PO PRN (16:41)
[2019-06-29] MEDS ORDERED: *HR* Heparin 5,000 UNIT/ML VIAL SQ SCH (18:00)
[2019-06-29] MEDS: Isosorbide MONOnitrate (24 HR) 30 MG TAB.ER.24H PO SCH (18:06)
[2019-06-30] MEDS: Ipratropium/Albuterol Neb 3 ML IH SCH ×4 (03:55→22:23)
[2019-06-30 06:10] LABS: Basophils # 0.1 K/mcL (0.0-0.2); Basophils % 0.9 %; Eosinophils # 0.2 K/mcL (0.0-0.6); Eosinophils % 3.9 %; Hematocrit 34.5 % (37.5-50.1); Hemoglobin 11.5 g/dL (12.9-16.9); Immature Granulocytes % 0.7 % (0-4); Lymphocytes # 1.6 K/mcL (0.6-4.6); Lymphocytes % 27.9 %; Mean Corpuscular HGB Conc 33.3 g/dL (31.6-35.5); Mean Corpuscular Hemoglobin 31.8 pg (28.0-33.3); Mean Corpuscular Volume 95.3 fL (83.0-100.0); Mean Platelet Volume 8.7 fL (9.4-12.4); Monocytes # 0.6 K/mcL (0.0-1.3); Monocytes % 10.2 %; Neutrophils # 3.2 K/mcL (1.6-8.9); Platelet Count 194 K/mcL (140-400); Red Blood Count 3.62 M/mcL (4.19-5.50); Red Cell Distribution Width 12.6 % (11.5-14.5); Segmented Neutrophils % 56.4 %; White Blood Count 5.7 K/mcL (4.3-11.1)
[2019-06-30 06:30] LABS: INR 1.2; Prothrombin Time 13.2 Seconds (9.4-12.1)
[2019-06-30 06:32] LABS: Alanine Aminotransferase 14 Units/L (7-52); Albumin 3.8 g/dL (3.5-5.7); Albumin/Globulin Ratio 1.3 (1.1-2.2); Alkaline Phosphatase 82 Units/L (34-104); Aspartate Amino Transferase 13 Units/L (13-39); BUN/Creatinine Ratio 16 (6-26); Bilirubin,Total 1.2 mg/dL (0.3-1.0); Blood Urea Nitrogen 15 mg/dL (8-23); Calcium 9.1 mg/dL (8.6-10.3); Carbon Dioxide 25 mEq/L (23-29); Chloride 102 mEq/L (98-107); Glucose 171 mg/dL (70-105); Osmolality,Calculated 291 (280-300); Potassium 3.8 mEq/L (3.5-5.1); Sodium 138 mEq/L (136-145); Total Protein 6.8 g/dL (6.4-8.9); eGFR For African Americans > 60 (> 60); eGFR For Non-African Americans > 60 (> 60)
[2019-06-30] MEDS ORDERED: Aminoglycoside Consult 1 EACH MC ONE (07:35)
[2019-06-30] MEDS: Aspirin Enteric Coated 81 MG Tablet PO SCH (08:48)
[2019-06-30] MEDS: Insulin LISPRO 300 UNITS/3 ML VIAL SQ SCH ×4 (08:49→20:47)
[2019-06-30] MEDS ORDERED: DONEPEZIL HCL PO SCH (09:00)
[2019-06-30] MEDS ORDERED: MEMANTINE HCL PO SCH (09:00)
[2019-06-30] MEDS: Furosemide 40 MG/4 ML VIAL IVP SCH (13:37)
[2019-06-30] MEDS: cefTRIAXone 1,000 MG in Water for inj. (sterile) 10 ML IVP SCH (13:38)
[2019-06-30] MEDS: Azithromycin 500 MG in 0.9 % Sodium Chloride 250 ML IVPB SCH (13:39)
[2019-06-30] MEDS: Isosorbide MONOnitrate (24 HR) 30 MG TAB.ER.24H PO SCH (17:37)
[2019-07-01] MEDS: Ipratropium/Albuterol Neb 3 ML IH SCH ×2 (03:59→09:58)
[2019-07-01] MEDS: Insulin LISPRO 300 UNITS/3 ML VIAL SQ SCH (08:30)
[2019-07-01] MEDS: Aspirin Enteric Coated 81 MG Tablet PO SCH (08:33)
[2019-07-01] MEDS: Furosemide 40 MG/4 ML VIAL IVP SCH (08:34)
[2019-07-01] MEDS: cefTRIAXone 1,000 MG in Water for inj. (sterile) 10 ML IVP SCH (08:34)
[2019-07-01] MEDS: Azithromycin 500 MG in 0.9 % Sodium Chloride 250 ML IVPB SCH (10:31)
[2019-07-01 10:36] VITALS: BP 157/84
== END 2019-07-01 13:34 | disposition home or self-care (01) | DRG 193 ==
LOC: EMEROOARM 16:17 → 3ANU 16:17 → SUATTDRO 06-29 15:09
PROVIDERS: ADMIT Internal Medicine; ATTEND Internal Medicine

== ENCOUNTER 2019-09-25 15:56 | Inpatient (IN) ==
[2019-09-25] MEDS ORDERED: Aspirin 81 MG TAB.CHEW PO ONE (16:00)
[2019-09-25] MEDS: Nitroglycerin 0.4 MG TAB.SUBL SL PRN ×3 (16:17→16:31)
[2019-09-25 16:45] LABS: Basophils # 0.1 K/mcL (0.0-0.2); Basophils % 1.2 %; Eosinophils # 0.1 K/mcL (0.0-0.6); Eosinophils % 2.2 %; Hematocrit 36.4 % (37.5-50.1); Hemoglobin 12.5 g/dL (12.9-16.9); Immature Granulocytes % 0.7 % (0-4); Lymphocytes # 1.4 K/mcL (0.6-4.6); Lymphocytes % 24.4 %; Mean Corpuscular HGB Conc 34.3 g/dL (31.6-35.5); Mean Corpuscular Hemoglobin 31.6 pg (28.0-33.3); Mean Corpuscular Volume 92.2 fL (83.0-100.0); Mean Platelet Volume 8.4 fL (9.4-12.4); Monocytes # 0.5 K/mcL (0.0-1.3); Monocytes % 9.1 %; Neutrophils # 3.6 K/mcL (1.6-8.9); Platelet Count 224 K/mcL (140-400); Red Blood Count 3.95 M/mcL (4.19-5.50); Red Cell Distribution Width 12.6 % (11.5-14.5); Segmented Neutrophils % 62.4 %; White Blood Count 5.8 K/mcL (4.3-11.1)
[2019-09-25 16:49] LABS: INR 0.9; Prothrombin Time 10.7 Seconds (9.4-12.1)
[2019-09-25 16:51] LABS: Activated Partial Thrombo Time 30.8 Seconds (26.0-36.0)
[2019-09-25 17:05] LABS: BUN/Creatinine Ratio 13 (6-26); Blood Urea Nitrogen 12 mg/dL (8-23); Calcium 9.3 mg/dL (8.6-10.3); Carbon Dioxide 25 mEq/L (23-29); Chloride 107 mEq/L (98-107); Glucose 138 mg/dL (70-105); Osmolality,Calculated 288 (280-300); Potassium 4.4 mEq/L (3.5-5.1); Sodium 138 mEq/L (136-145); Troponin I < 0.03 ng/mL (< 0.04); eGFR For African Americans > 60 (> 60); eGFR For Non-African Americans > 60 (> 60)
[2019-09-25] MEDS ORDERED: Naloxone 0.4 MG/ML INJ IVP PRN (20:05)
[2019-09-25] MEDS ORDERED: Dextrose Gel 15 GM/37.5 ML TUBE PO PRN ×2 (20:09)
[2019-09-25] MEDS ORDERED: D5% in Water 1,000 ML IVC PRN (20:09)
[2019-09-25] MEDS ORDERED: *HR* Dextrose 50 % in Water (Syg) 50 ML SYRINGE IVP PRN (20:09)
[2019-09-25] MEDS: Insulin LISPRO 300 UNITS/3 ML VIAL SQ SCH (21:02)
[2019-09-26] MEDS ORDERED: Ipratropium/Albuterol Neb 3 ML IH PRN (01:48)
[2019-09-26] MEDS: *HR* Heparin 5,000 UNIT/ML VIAL SQ SCH ×3 (05:28→18:52)
[2019-09-26 06:12] LABS: Basophils # 0.1 K/mcL (0.0-0.2); Basophils % 1.1 %; Eosinophils # 0.2 K/mcL (0.0-0.6); Eosinophils % 3.7 %; Hematocrit 34.6 % (37.5-50.1); Hemoglobin 11.6 g/dL (12.9-16.9); Immature Granulocytes % 0.4 % (0-4); Lymphocytes # 1.7 K/mcL (0.6-4.6); Lymphocytes % 37.4 %; Mean Corpuscular HGB Conc 33.5 g/dL (31.6-35.5); Mean Corpuscular Hemoglobin 31.2 pg (28.0-33.3); Mean Platelet Volume 8.4 fL (9.4-12.4); Monocytes # 0.4 K/mcL (0.0-1.3); Monocytes % 9.4 %; Neutrophils # 2.2 K/mcL (1.6-8.9); Platelet Count 206 K/mcL (140-400); Red Blood Count 3.72 M/mcL (4.19-5.50); Red Cell Distribution Width 12.5 % (11.5-14.5); White Blood Count 4.6 K/mcL (4.3-11.1)
[2019-09-26 06:15] LABS: INR 1.1; Prothrombin Time 12.1 Seconds (9.4-12.1)
[2019-09-26 06:32] LABS: BUN/Creatinine Ratio 13 (6-26); Blood Urea Nitrogen 12 mg/dL (8-23); Carbon Dioxide 25 mEq/L (23-29); Chloride 105 mEq/L (98-107); Glucose 132 mg/dL (70-105); Osmolality,Calculated 286 (280-300); Potassium 3.8 mEq/L (3.5-5.1); Sodium 137 mEq/L (136-145); Troponin I < 0.03 ng/mL (< 0.04); eGFR For African Americans > 60 (> 60); eGFR For Non-African Americans > 60 (> 60)
[2019-09-26] MEDS: Aspirin Enteric Coated 81 MG Tablet PO SCH (08:04)
[2019-09-26] MEDS: lisinopriL 20 MG TABLET PO SCH ×2 (08:05→21:12)
[2019-09-26] MEDS: Furosemide 40 MG TABLET PO SCH (08:05)
[2019-09-26] MEDS: Insulin LISPRO 300 UNITS/3 ML VIAL SQ SCH ×4 (08:08→21:08)
[2019-09-26] MEDS: CLEAR EYES NATURAL TEARS 15 ML BOTTLE BOTH EYES SCH ×4 (08:08→21:16)
[2019-09-26] MEDS: amLODIPine 5 MG TABLET PO SCH (08:28)
[2019-09-26 09:11] LABS: Basophils # 0.1 K/mcL (0.0-0.2); Basophils % 1.6 %; Eosinophils # 0.2 K/mcL (0.0-0.6); Eosinophils % 4.3 %; Hematocrit 35.9 % (37.5-50.1); Hemoglobin 12.3 g/dL (12.9-16.9); Immature Granulocytes % 0.7 % (0-4); Lymphocytes # 1.6 K/mcL (0.6-4.6); Lymphocytes % 35.7 %; Mean Corpuscular HGB Conc 34.3 g/dL (31.6-35.5); Mean Corpuscular Hemoglobin 31.8 pg (28.0-33.3); Mean Corpuscular Volume 92.8 fL (83.0-100.0); Mean Platelet Volume 8.5 fL (9.4-12.4); Monocytes # 0.5 K/mcL (0.0-1.3); Monocytes % 10.1 %; Neutrophils # 2.1 K/mcL (1.6-8.9); Platelet Count 229 K/mcL (140-400); Red Blood Count 3.87 M/mcL (4.19-5.50); Red Cell Distribution Width 12.6 % (11.5-14.5); Segmented Neutrophils % 47.6 %; White Blood Count 4.5 K/mcL (4.3-11.1)
[2019-09-26 09:23] LABS: Albumin 4.1 g/dL (3.5-5.7); Albumin/Globulin Ratio 1.6 (1.1-2.2); Bilirubin,Direct 0.3 mg/dL (0.0-0.2); Bilirubin,Indirect 1.4 mg/dL (0.0-1.0); Bilirubin,Total 1.7 mg/dL (0.3-1.0); Globulin 2.5 g/dL (2.4-3.5); Total Protein 6.6 g/dL (6.4-8.9)
[2019-09-26] MEDS ORDERED: Isovue-370 500 ML BOTTLE IVP ONE (11:16)
[2019-09-26] MEDS: Isosorbide MONOnitrate (24 HR) 30 MG TAB.ER.24H PO SCH (17:02)
[2019-09-26] MEDS: hydrOXYzine pamoate 25 MG CAPSULE PO SCH (21:16)
[2019-09-27] MEDS: *HR* Heparin 5,000 UNIT/ML VIAL SQ SCH ×3 (00:11→16:51)
[2019-09-27] MEDS: Ondansetron 4 MG/2 ML VIAL IVP PRN (04:50)
[2019-09-27 04:55] LABS: Basophils # 0.1 K/mcL (0.0-0.2); Basophils % 1.7 %; Eosinophils # 0.1 K/mcL (0.0-0.6); Eosinophils % 2.7 %; Hematocrit 37.8 % (37.5-50.1); Hemoglobin 12.8 g/dL (12.9-16.9); Immature Granulocytes % 0.6 % (0-4); Lymphocytes # 1.7 K/mcL (0.6-4.6); Lymphocytes % 32.6 %; Mean Corpuscular HGB Conc 33.9 g/dL (31.6-35.5); Mean Corpuscular Hemoglobin 31.7 pg (28.0-33.3); Mean Corpuscular Volume 93.6 fL (83.0-100.0); Mean Platelet Volume 8.6 fL (9.4-12.4); Monocytes # 0.5 K/mcL (0.0-1.3); Neutrophils # 2.8 K/mcL (1.6-8.9); Platelet Count 253 K/mcL (140-400); Red Blood Count 4.04 M/mcL (4.19-5.50); Red Cell Distribution Width 12.7 % (11.5-14.5); Segmented Neutrophils % 52.4 %; White Blood Count 5.3 K/mcL (4.3-11.1)
[2019-09-27 05:16] LABS: BUN/Creatinine Ratio 16 (6-26); Blood Urea Nitrogen 16 mg/dL (8-23); Calcium 9.6 mg/dL (8.6-10.3); Carbon Dioxide 25 mEq/L (23-29); Chloride 102 mEq/L (98-107); Glucose 149 mg/dL (70-105); Magnesium 1.9 mg/dL (1.6-2.6); Osmolality,Calculated 290 (280-300); Potassium 3.5 mEq/L (3.5-5.1); Sodium 138 mEq/L (136-145); eGFR For African Americans > 60 (> 60); eGFR For Non-African Americans > 60 (> 60)
[2019-09-27 07:02] LABS: Estimated Average Glucose 160 mg/dl
[2019-09-27] MEDS: Insulin LISPRO 300 UNITS/3 ML VIAL SQ SCH ×4 (07:43→21:02)
[2019-09-27] MEDS: Furosemide 40 MG TABLET PO SCH (08:15)
[2019-09-27] MEDS: hydrOXYzine pamoate 25 MG CAPSULE PO SCH ×2 (08:15→20:46)
[2019-09-27] MEDS: amLODIPine 5 MG TABLET PO SCH (08:15)
[2019-09-27] MEDS: Aspirin Enteric Coated 81 MG Tablet PO SCH (08:15)
[2019-09-27] MEDS: lisinopriL 20 MG TABLET PO SCH (08:15)
[2019-09-27] MEDS: CLEAR EYES NATURAL TEARS 15 ML BOTTLE BOTH EYES SCH ×4 (08:16→20:49)
[2019-09-27] MEDS: Isosorbide MONOnitrate (24 HR) 30 MG TAB.ER.24H PO SCH (16:52)
[2019-09-27] MEDS: Acetaminophen 325 MG TABLET PO PRN (20:48)
[2019-09-28] MEDS: *HR* Heparin 5,000 UNIT/ML VIAL SQ SCH ×2 (00:52→08:27)
[2019-09-28 01:15] LABS: White Blood Count 5.3 K/mcL (4.3-11.1)
[2019-09-28 01:16] LABS: Basophils # 0.1 K/mcL (0.0-0.2); Basophils % 1.3 %; Eosinophils # 0.2 K/mcL (0.0-0.6); Eosinophils % 2.8 %; Hematocrit 37.6 % (37.5-50.1); Hemoglobin 12.9 g/dL (12.9-16.9); Immature Granulocytes % 0.4 % (0-4); Lymphocytes # 1.8 K/mcL (0.6-4.6); Mean Corpuscular HGB Conc 34.3 g/dL (31.6-35.5); Mean Corpuscular Hemoglobin 31.6 pg (28.0-33.3); Mean Corpuscular Volume 92.2 fL (83.0-100.0); Mean Platelet Volume 8.4 fL (9.4-12.4); Monocytes # 0.6 K/mcL (0.0-1.3); Monocytes % 10.6 %; Neutrophils # 2.7 K/mcL (1.6-8.9); Platelet Count 242 K/mcL (140-400); Red Blood Count 4.08 M/mcL (4.19-5.50); Red Cell Distribution Width 12.6 % (11.5-14.5); Segmented Neutrophils % 50.9 %
[2019-09-28 01:33] LABS: BUN/Creatinine Ratio 18 (6-26); Blood Urea Nitrogen 19 mg/dL (8-23); Calcium 9.5 mg/dL (8.6-10.3); Carbon Dioxide 26 mEq/L (23-29); Chloride 102 mEq/L (98-107); Glucose 146 mg/dL (70-105); Magnesium 1.8 mg/dL (1.6-2.6); Osmolality,Calculated 289 (280-300); Potassium 3.8 mEq/L (3.5-5.1); Sodium 137 mEq/L (136-145); eGFR For African Americans > 60 (> 60); eGFR For Non-African Americans > 60 (> 60)
[2019-09-28] MEDS: Acetaminophen 325 MG TABLET PO PRN (06:43)
[2019-09-28] MEDS: hydrOXYzine pamoate 25 MG CAPSULE PO SCH ×2 (08:26→21:57)
[2019-09-28] MEDS: lisinopriL 20 MG TABLET PO SCH (08:26)
[2019-09-28] MEDS: Aspirin Enteric Coated 81 MG Tablet PO SCH (08:27)
[2019-09-28] MEDS: amLODIPine 5 MG TABLET PO SCH (08:27)
[2019-09-28] MEDS: Furosemide 40 MG TABLET PO SCH (08:27)
[2019-09-28] MEDS: Insulin LISPRO 300 UNITS/3 ML VIAL SQ SCH ×4 (08:37→22:13)
[2019-09-28] MEDS: CLEAR EYES NATURAL TEARS 15 ML BOTTLE BOTH EYES SCH ×4 (08:37→22:13)
[2019-09-28] MEDS ORDERED: Metoprolol XL (24 HR) Succ 25 MG TAB.ER.24H PO SCH (09:00)
[2019-09-28] MEDS: Ondansetron 4 MG/2 ML VIAL IVP PRN (09:37)
[2019-09-28] MEDS: Isosorbide MONOnitrate (24 HR) 30 MG TAB.ER.24H PO SCH (17:38)
[2019-09-29 03:56] LABS: Basophils # 0.1 K/mcL (0.0-0.2); Basophils % 1.1 %; Eosinophils # 0.2 K/mcL (0.0-0.6); Eosinophils % 3.7 %; Hematocrit 39.4 % (37.5-50.1); Hemoglobin 13.4 g/dL (12.9-16.9); Immature Granulocytes % 0.6 % (0-4); Lymphocytes # 1.8 K/mcL (0.6-4.6); Lymphocytes % 28.7 %; Mean Corpuscular Hemoglobin 31.3 pg (28.0-33.3); Mean Corpuscular Volume 92.1 fL (83.0-100.0); Mean Platelet Volume 8.6 fL (9.4-12.4); Monocytes # 0.6 K/mcL (0.0-1.3); Monocytes % 9.1 %; Neutrophils # 3.5 K/mcL (1.6-8.9); Platelet Count 262 K/mcL (140-400); Red Blood Count 4.28 M/mcL (4.19-5.50); Red Cell Distribution Width 12.7 % (11.5-14.5); Segmented Neutrophils % 56.8 %; White Blood Count 6.2 K/mcL (4.3-11.1)
[2019-09-29 04:18] LABS: Calcium 9.3 mg/dL (8.6-10.3); Magnesium 1.6 mg/dL (1.6-2.6); Potassium 3.6 mEq/L (3.5-5.1)
[2019-09-29] MEDS: *HR* Enoxaparin 40 MG/0.4 ML SYRINGE SQ SCH (06:01)
[2019-09-29] MEDS: Venlafaxine XR (24 HR) 75 MG CAP.ER.24H PO SCH (08:18)
[2019-09-29] MEDS: Aspirin Enteric Coated 81 MG Tablet PO SCH (08:18)
[2019-09-29] MEDS: amLODIPine 5 MG TABLET PO SCH (08:18)
[2019-09-29] MEDS: hydrOXYzine pamoate 25 MG CAPSULE PO SCH ×2 (08:19→22:29)
[2019-09-29] MEDS: CLEAR EYES NATURAL TEARS 15 ML BOTTLE BOTH EYES SCH ×4 (08:19→22:30)
[2019-09-29] MEDS: Insulin LISPRO 300 UNITS/3 ML VIAL SQ SCH ×4 (08:39→23:16)
[2019-09-29] MEDS ORDERED: Metoprolol XL (24 HR) Succ 50 MG TAB.ER.24H PO SCH (09:00)
[2019-09-29] MEDS: Isosorbide MONOnitrate (24 HR) 30 MG TAB.ER.24H PO SCH (17:45)
[2019-09-29] MEDS ORDERED: Ringers Solution, Lactated 500 ML IVC ONE (18:24)
[2019-09-29 22:14] LABS: Bilirubin,Urine Small (Negative); Blood,Urine Negative (Negative); Clarity,Urine Cloudy (Clear); Color,Urine Orange (Yellow); Glucose,Urine (UA) 100 mg/dL (Normal); Ketones,Urine Trace mg/dL (Negative); Leukocyte Esterase,Urine Trace (Negative); Nitrite,Urine Negative (Negative); Protein,Urine 30 mg/dL (Neg-Trace); Specific Gravity,Urine 1.029 (1.010-1.025); Urobilinogen,Urine Normal (Normal)
[2019-09-29 22:26] LABS: WBC,Urine 0-3 per hpf (0-3)
[2019-09-29 22:27] LABS: Bacteria,Urine Few per hpf (None-Few); Hyaline Casts,Urine Moderate per lpf (None-Few); Mucus,Urine Few per lpf (Few); Sperm,Urine Present (None Seen); Squamous Epithelial Cell,Urine Few per lpf (None-Few)
[2019-09-30 02:30] LABS: Basophils # 0.1 K/mcL (0.0-0.2); Basophils % 1.3 %; Eosinophils # 0.2 K/mcL (0.0-0.6); Eosinophils % 3.1 %; Hemoglobin 12.7 g/dL (12.9-16.9); Immature Granulocytes % 0.6 % (0-4); Lymphocytes # 1.9 K/mcL (0.6-4.6); Lymphocytes % 31.2 %; Mean Corpuscular HGB Conc 33.4 g/dL (31.6-35.5); Mean Corpuscular Hemoglobin 31.4 pg (28.0-33.3); Mean Corpuscular Volume 93.8 fL (83.0-100.0); Mean Platelet Volume 8.9 fL (9.4-12.4); Monocytes # 0.6 K/mcL (0.0-1.3); Monocytes % 10.3 %; Neutrophils # 3.3 K/mcL (1.6-8.9); Platelet Count 262 K/mcL (140-400); Red Blood Count 4.05 M/mcL (4.19-5.50); Red Cell Distribution Width 12.8 % (11.5-14.5); Segmented Neutrophils % 53.5 %; White Blood Count 6.2 K/mcL (4.3-11.1)
[2019-09-30 02:56] LABS: Calcium 9.6 mg/dL (8.6-10.3); Magnesium 1.7 mg/dL (1.6-2.6); Potassium 3.9 mEq/L (3.5-5.1)
[2019-09-30] MEDS: Venlafaxine XR (24 HR) 75 MG CAP.ER.24H PO SCH (08:36)
[2019-09-30] MEDS: Aspirin Enteric Coated 81 MG Tablet PO SCH (08:36)
[2019-09-30] MEDS: amLODIPine 5 MG TABLET PO SCH (08:37)
[2019-09-30] MEDS: hydrOXYzine pamoate 25 MG CAPSULE PO SCH ×2 (08:37→20:28)
[2019-09-30] MEDS: *HR* Enoxaparin 40 MG/0.4 ML SYRINGE SQ SCH (08:38)
[2019-09-30] MEDS: Insulin LISPRO 300 UNITS/3 ML VIAL SQ SCH ×4 (08:39→20:16)
[2019-09-30] MEDS: CLEAR EYES NATURAL TEARS 15 ML BOTTLE BOTH EYES SCH ×4 (08:39→20:32)
[2019-09-30] MEDS: lisinopriL 20 MG TABLET PO SCH (09:54)
[2019-09-30] MEDS: 0.9 % Sodium Chloride 1,000 ML IVC SCH (15:11)
[2019-09-30] MEDS: Isosorbide MONOnitrate (24 HR) 30 MG TAB.ER.24H PO SCH (17:11)
[2019-10-01] MEDS: 0.9 % Sodium Chloride 1,000 ML IVC SCH (01:22)
[2019-10-01 03:20] LABS: BUN/Creatinine Ratio 32 (6-26); Blood Urea Nitrogen 36 mg/dL (8-23); Calcium 8.8 mg/dL (8.6-10.3); Carbon Dioxide 23 mEq/L (23-29); Chloride 105 mEq/L (98-107); Glucose 125 mg/dL (70-105); Osmolality,Calculated 292 (280-300); Potassium 4.1 mEq/L (3.5-5.1); Sodium 136 mEq/L (136-145); eGFR For African Americans > 60 (> 60); eGFR For Non-African Americans > 60 (> 60)
[2019-10-01] MEDS: *HR* Enoxaparin 40 MG/0.4 ML SYRINGE SQ SCH (06:03)
[2019-10-01 06:53] VITALS: BP 132/83
[2019-10-01] MEDS: hydrOXYzine pamoate 25 MG CAPSULE PO SCH (08:13)
[2019-10-01] MEDS: Aspirin Enteric Coated 81 MG Tablet PO SCH (08:15)
[2019-10-01] MEDS: Venlafaxine XR (24 HR) 75 MG CAP.ER.24H PO SCH (08:17)
[2019-10-01] MEDS: amLODIPine 5 MG TABLET PO SCH (08:17)
[2019-10-01] MEDS: Insulin LISPRO 300 UNITS/3 ML VIAL SQ SCH (08:28)
[2019-10-01] MEDS: CLEAR EYES NATURAL TEARS 15 ML BOTTLE BOTH EYES SCH (08:30)
== END 2019-10-01 10:49 | disposition home or self-care (01) | DRG 71 ==
LOC: 3BNU 15:56 → EMEROOARM 15:56 → SUATTDRO 18:20 → 3BNU 20:00 → SUATTDRO 09-27 12:03 → 2NENU 09-28 13:54 → 2ANU 09-29 22:07
PROVIDERS: ADMIT Internal Medicine; ATTEND Internal Medicine

== ENCOUNTER 2020-03-23 12:10 | Observation (INO) ==
[2020-03-23] MEDS ORDERED: predniSONE 20 MG TABLET PO ONE (12:37)
[2020-03-23] MEDS ORDERED: Ipratropium/Albuterol Neb 3 ML IH ONE (12:37)
[2020-03-23 12:48] LABS: Basophils # 0.1 K/mcL (0.0-0.2); Eosinophils # 0.3 K/mcL (0.0-0.6); Eosinophils % 4.4 %; Hematocrit 39.6 % (37.5-50.1); Immature Granulocytes % 0.3 % (0-4); Lymphocytes # 1.2 K/mcL (0.6-4.6); Lymphocytes % 19.8 %; Mean Corpuscular HGB Conc 32.8 g/dL (31.6-35.5); Mean Corpuscular Volume 94.3 fL (83.0-100.0); Mean Platelet Volume 8.9 fL (9.4-12.4); Monocytes # 0.7 K/mcL (0.0-1.3); Monocytes % 12.3 %; Neutrophils # 3.7 K/mcL (1.6-8.9); Platelet Count 235 K/mcL (140-400); Red Cell Distribution Width 12.8 % (11.5-14.5); Segmented Neutrophils % 62.2 %; White Blood Count 5.9 K/mcL (4.3-11.1)
[2020-03-23 13:12] LABS: Alanine Aminotransferase 19 Units/L (7-52); Albumin 4.4 g/dL (3.5-5.7); Albumin/Globulin Ratio 1.1 (1.1-2.2); Alkaline Phosphatase 87 Units/L (34-104); Aspartate Amino Transferase 23 Units/L (13-39); BUN/Creatinine Ratio 14 (6-26); Bilirubin,Direct 0.4 mg/dL (0.0-0.2); Bilirubin,Indirect 1.9 mg/dL (0.0-1.0); Bilirubin,Total 2.3 mg/dL (0.3-1.0); Blood Urea Nitrogen 17 mg/dL (8-23); Calcium 10.3 mg/dL (8.6-10.3); Carbon Dioxide 24 mEq/L (23-29); Chloride 102 mEq/L (98-107); Globulin 3.9 g/dL (2.4-3.5); Glucose 140 mg/dL (70-105); Osmolality,Calculated 286 (280-300); Sodium 136 mEq/L (136-145); Total Protein 8.3 g/dL (6.4-8.9); Troponin I 0.04 ng/mL (< 0.04); eGFR For African Americans > 60 (> 60); eGFR For Non-African Americans 59 (> 60)
[2020-03-23] MEDS ORDERED: Isovue-370 500 ML BOTTLE IVP ONE (15:41)
[2020-03-23] MEDS ORDERED: *HR* Dextrose 50 % in Water (Vial) 50 ML VIAL IVP PRN (16:44)
[2020-03-23] MEDS ORDERED: Dextrose Gel 15 GM/37.5 ML TUBE PO PRN ×2 (16:44)
[2020-03-23] MEDS ORDERED: D5% in Water 1,000 ML IVC PRN (16:44)
[2020-03-23] MEDS ORDERED: Naloxone 0.4 MG/ML INJ IVP PRN (16:45)
[2020-03-23] MEDS ORDERED: Ondansetron ODT 4 MG TAB.RAPDIS SL PRN (16:45)
[2020-03-23] MEDS ORDERED: *HR* OxyCODONE/APAP 10/325 TABLET PO PRN (17:13)
[2020-03-23] MEDS: Azithromycin 250 MG TABLET PO SCH (18:33)
[2020-03-23] MEDS: Isosorbide MONOnitrate (24 HR) 30 MG TAB.ER.24H PO SCH (18:33)
[2020-03-23] MEDS: Insulin LISPRO 300 UNITS/3 ML VIAL SQ SCH (18:33)
[2020-03-23] MEDS: Furosemide 20 MG TABLET PO SCH (18:33)
[2020-03-23] MEDS ORDERED: Insulin LISPRO 300 UNITS/3 ML VIAL SQ SCH (21:00)
[2020-03-23] MEDS: *HR* Heparin 5,000 UNIT/ML VIAL SQ SCH (21:02)
[2020-03-23] MEDS: Budesonide/Formoterol 160/4.5 1 PUFF INH IH SCH (22:24)
[2020-03-23] MEDS: Ipratropium/Albuterol Neb 3 ML IH SCH (22:24)
[2020-03-24 02:39] LABS: Basophils % 0.4 %; Hematocrit 36.5 % (37.5-50.1); Hemoglobin 11.8 g/dL (12.9-16.9); Immature Granulocytes % 0.4 % (0-4); Lymphocytes # 0.7 K/mcL (0.6-4.6); Lymphocytes % 13.4 %; Mean Corpuscular HGB Conc 32.3 g/dL (31.6-35.5); Mean Corpuscular Hemoglobin 30.7 pg (28.0-33.3); Mean Corpuscular Volume 95.1 fL (83.0-100.0); Mean Platelet Volume 9.2 fL (9.4-12.4); Monocytes # 0.4 K/mcL (0.0-1.3); Monocytes % 7.1 %; Neutrophils # 4.4 K/mcL (1.6-8.9); Platelet Count 243 K/mcL (140-400); Red Blood Count 3.84 M/mcL (4.19-5.50); Red Cell Distribution Width 12.9 % (11.5-14.5); Segmented Neutrophils % 78.7 %; White Blood Count 5.5 K/mcL (4.3-11.1)
[2020-03-24 03:10] LABS: BUN/Creatinine Ratio 18 (6-26); Blood Urea Nitrogen 21 mg/dL (8-23); Calcium 9.6 mg/dL (8.6-10.3); Carbon Dioxide 23 mEq/L (23-29); Chloride 103 mEq/L (98-107); Glucose 218 mg/dL (70-105); Magnesium 1.9 mg/dL (1.6-2.6); Osmolality,Calculated 290 (280-300); Potassium 4.1 mEq/L (3.5-5.1); Sodium 135 mEq/L (136-145); eGFR For African Americans > 60 (> 60); eGFR For Non-African Americans > 60 (> 60)
[2020-03-24] MEDS: Ipratropium/Albuterol Neb 3 ML IH SCH ×3 (04:13→15:31)
[2020-03-24] MEDS: *HR* Heparin 5,000 UNIT/ML VIAL SQ SCH ×2 (05:58→15:07)
[2020-03-24] MEDS ORDERED: Diphenoxylate/Atropine 1 TAB TABLET PO PRN (07:12)
[2020-03-24] MEDS: Insulin LISPRO 300 UNITS/3 ML VIAL SQ SCH ×3 (08:18→18:25)
[2020-03-24] MEDS: Azithromycin 250 MG TABLET PO SCH (08:18)
[2020-03-24] MEDS: Furosemide 20 MG TABLET PO SCH (08:20)
[2020-03-24] MEDS: MethylPREDNISolone 40 MG/ML VIAL IVP SCH ×2 (08:22→18:35)
[2020-03-24] MEDS ORDERED: hydrOXYzine pamoate 25 MG CAPSULE PO SCH ×2 (09:00→21:00)
[2020-03-24] MEDS ORDERED: Venlafaxine XR (24 HR) 75 MG CAP.ER.24H PO SCH (09:00)
[2020-03-24] MEDS ORDERED: lisinopriL 20 MG TABLET PO SCH ×2 (09:00)
[2020-03-24] MEDS ORDERED: Aspirin Enteric Coated 81 MG Tablet PO SCH (09:00)
[2020-03-24] MEDS ORDERED: Lactobacillus 1 EACH CAP.SPRINK PO SCH (09:00)
[2020-03-24] MEDS: Budesonide/Formoterol 160/4.5 1 PUFF INH IH SCH (10:36)
[2020-03-24 15:30] VITALS: BP 136/84
[2020-03-24] MEDS: Isosorbide MONOnitrate (24 HR) 30 MG TAB.ER.24H PO SCH (18:35)
== END 2020-03-24 19:12 | disposition home or self-care (01) ==
LOC: EMEROOARM 12:10 → 2ANU 12:10 → SUATTDRO 16:30 → 2ANU 18:03
PROVIDERS: ADMIT Internal Medicine; ATTEND Family Medicine

== ENCOUNTER 2020-10-30 22:30 | Observation (INO) ==
[2020-10-30] MEDS ORDERED: Isovue-370 500 ML BOTTLE IVP ONE ×2 (23:20→23:22)
[2020-10-30 23:24] LABS: Basophils # 0.1 K/mcL (0.0-0.2); Basophils % 1.5 %; Eosinophils # 0.2 K/mcL (0.0-0.6); Eosinophils % 2.5 %; Hematocrit 34.1 % (37.5-50.1); Hemoglobin 11.8 g/dL (12.9-16.9); Immature Granulocytes % 1.2 % (0-4); Lymphocytes # 2.1 K/mcL (0.6-4.6); Lymphocytes % 32.3 %; Mean Corpuscular HGB Conc 34.6 g/dL (31.6-35.5); Mean Corpuscular Hemoglobin 32.8 pg (28.0-33.3); Mean Corpuscular Volume 94.7 fL (83.0-100.0); Mean Platelet Volume 8.9 fL (9.4-12.4); Monocytes # 0.6 K/mcL (0.0-1.3); Monocytes % 9.5 %; Neutrophils # 3.5 K/mcL (1.6-8.9); Platelet Count 238 K/mcL (140-400); Red Cell Distribution Width 12.6 % (11.5-14.5); White Blood Count 6.5 K/mcL (4.3-11.1)
[2020-10-30 23:34] LABS: INR 1.3; Prothrombin Time 14.5 Seconds (9.4-12.1)
[2020-10-30 23:36] LABS: Alanine Aminotransferase 21 Units/L (7-52); Albumin 4.2 g/dL (3.5-5.7); Albumin/Globulin Ratio 1.5 (1.1-2.2); Alkaline Phosphatase 83 Units/L (34-104); Aspartate Amino Transferase 18 Units/L (13-39); BUN/Creatinine Ratio 13 (6-26); Bilirubin,Direct 0.1 mg/dL (0.0-0.2); Bilirubin,Indirect 0.8 mg/dL (0.0-1.0); Bilirubin,Total 0.9 mg/dL (0.3-1.0); Blood Urea Nitrogen 20 mg/dL (8-23); Calcium 9.6 mg/dL (8.6-10.3); Carbon Dioxide 25 mEq/L (23-29); Chloride 101 mEq/L (98-107); Globulin 2.8 g/dL (2.4-3.5); Glucose 186 mg/dL (70-105); Osmolality,Calculated 287 (280-300); Potassium 4.1 mEq/L (3.5-5.1); Sodium 135 mEq/L (136-145); Troponin I < 0.03 ng/mL (< 0.04); eGFR For African Americans 55 (> 60); eGFR For Non-African Americans 45 (> 60)
[2020-10-30 23:37] LABS: Activated Partial Thrombo Time 31.4 Seconds (26.0-36.0)
[2020-10-30] MEDS ORDERED: 0.9 % Sodium Chloride 500 ML IVC ONE (23:54)
[2020-10-31] MEDS ORDERED: Aspirin 81 MG TAB.CHEW PO ONE (01:41)
[2020-10-31] MEDS ORDERED: *HR* FentaNYL (PF) 100 MCG/2 ML VIAL IVP ONE (01:41)
[2020-10-31] MEDS ORDERED: Naloxone 0.4 MG/ML INJ IVP PRN (03:08)
[2020-10-31] MEDS ORDERED: Melatonin 3 MG TABLET PO PRN (03:08)
[2020-10-31] MEDS ORDERED: Ondansetron 4 MG/2 ML VIAL IVP PRN (03:08)
[2020-10-31] MEDS ORDERED: Ringers Solution, Lactated 1,000 ML IVC SCH (03:15)
[2020-10-31 05:37] LABS: Basophils % 0.8 %; Eosinophils # 0.1 K/mcL (0.0-0.6); Eosinophils % 2.8 %; Hematocrit 33.1 % (37.5-50.1); Hemoglobin 11.2 g/dL (12.9-16.9); Lymphocytes # 1.8 K/mcL (0.6-4.6); Lymphocytes % 35.2 %; Mean Corpuscular HGB Conc 33.8 g/dL (31.6-35.5); Mean Corpuscular Hemoglobin 32.5 pg (28.0-33.3); Mean Corpuscular Volume 95.9 fL (83.0-100.0); Mean Platelet Volume 8.8 fL (9.4-12.4); Monocytes # 0.4 K/mcL (0.0-1.3); Monocytes % 8.6 %; Neutrophils # 2.6 K/mcL (1.6-8.9); Platelet Count 184 K/mcL (140-400); Red Blood Count 3.45 M/mcL (4.19-5.50); Red Cell Distribution Width 12.7 % (11.5-14.5); Segmented Neutrophils % 51.6 %; White Blood Count 5.1 K/mcL (4.3-11.1)
[2020-10-31 06:03] LABS: BUN/Creatinine Ratio 18 (6-26); Blood Urea Nitrogen 22 mg/dL (8-23); Calcium 9.4 mg/dL (8.6-10.3); Carbon Dioxide 25 mEq/L (23-29); Chloride 102 mEq/L (98-107); Glucose 154 mg/dL (70-105); Osmolality,Calculated 288 (280-300); Potassium 3.8 mEq/L (3.5-5.1); Sodium 136 mEq/L (136-145); Troponin I < 0.03 ng/mL (< 0.04); eGFR For African Americans > 60 (> 60); eGFR For Non-African Americans 58 (> 60)
[2020-10-31] MEDS ORDERED: *HR* Dextrose 50 % in Water (Vial) 50 ML VIAL IVP PRN (06:14)
[2020-10-31] MEDS ORDERED: Dextrose Gel 15 GM/37.5 ML TUBE PO PRN ×2 (06:14)
[2020-10-31] MEDS ORDERED: D5% in Water 1,000 ML IVC PRN (06:14)
[2020-10-31 07:04] VITALS: BP 150/83
[2020-10-31] MEDS ORDERED: Aspirin Enteric Coated 81 MG Tablet PO SCH (09:00)
[2020-10-31] MEDS ORDERED: Isosorbide MONOnitrate (24 HR) 60 MG TAB.ER.24H PO SCH ×2 (09:00)
[2020-10-31] MEDS ORDERED: Budesonide/Formoterol 160/4.5 1 PUFF INH IH SCH (10:00)
[2020-10-31] MEDS ORDERED: Insulin LISPRO 300 UNITS/3 ML VIAL SUBQ SCH (12:00)
[2020-10-31] MEDS ORDERED: Isosorbide MONOnitrate (24 HR) 30 MG TAB.ER.24H PO SCH (18:00)
== END 2020-10-31 10:25 | disposition home health service (06) ==
LOC: 2ANU 22:30 → EMEROOARM 22:30 → SUATTDRO 10-31 01:57 → 2ANU 10-31 03:00
PROVIDERS: ADMIT Internal Medicine; ATTEND Internal Medicine

== ENCOUNTER 2021-05-04 20:53 | Inpatient (IN) ==
[2021-05-05] MEDS ORDERED: Melatonin 3 MG TABLET PO PRN (01:14)
[2021-05-05] MEDS ORDERED: Naloxone 0.4 MG/ML INJ IVP PRN (01:14)
[2021-05-05] MEDS ORDERED: Dextrose Gel 15 GM/37.5 ML TUBE PO PRN ×2 (01:18)
[2021-05-05] MEDS ORDERED: *HR* Dextrose 50 % in Water (Syg) 50 ML SYRINGE IVP PRN (01:18)
[2021-05-05] MEDS ORDERED: D5% in Water 1,000 ML IVC PRN (01:18)
[2021-05-05] MEDS ORDERED: Gadolinium Contrast Agent (WT Based) IV PRN (02:07)
[2021-05-05 03:04] LABS: Hematocrit 28.5 % (37.5-50.1); Hemoglobin 9.8 g/dL (12.9-16.9); Mean Corpuscular HGB Conc 34.4 g/dL (31.6-35.5); Mean Corpuscular Hemoglobin 33.1 pg (28.0-33.3); Mean Corpuscular Volume 96.3 fL (83.0-100.0); Mean Platelet Volume 8.6 fL (9.4-12.4); Platelet Count 288 K/mcL (140-400); Red Blood Count 2.96 M/mcL (4.19-5.50); Red Cell Distribution Width 12.6 % (11.5-14.5); White Blood Count 6.1 K/mcL (4.3-11.1)
[2021-05-05 03:28] LABS: Calcium 8.7 mg/dL (8.6-10.3); Magnesium 1.7 mg/dL (1.6-2.6); Potassium 3.9 mEq/L (3.5-5.1)
[2021-05-05] MEDS: Insulin LISPRO 300 UNITS/3 ML VIAL SUBQ SCH ×4 (07:22→20:07)
[2021-05-05] MEDS ORDERED: Perflutren Lipid Microsphere 1.3 ML in 0.9 % Sodium Chloride 8.7 ML IVP PRN (07:41)
[2021-05-05] MEDS: Apixaban 5 MG TABLET PO SCH ×2 (08:07→20:06)
[2021-05-05] MEDS: amLODIPine 5 MG TABLET PO SCH (08:07)
[2021-05-05] MEDS: Venlafaxine XR (24 HR) 75 MG CAP.ER.24H PO SCH (08:07)
[2021-05-05] MEDS: 0.9 % Sodium Chloride 1,000 ML IVC SCH ×2 (08:07→23:44)
[2021-05-05] MEDS ORDERED: GADOBUTROL 30 MMOL/30 ML VIAL IVP ONE (09:33)
[2021-05-05] MEDS: Budesonide/Formoterol 160/4.5 1 PUFF INH IH SCH ×2 (11:36→19:44)
[2021-05-05] MEDS: Aspirin Enteric Coated 81 MG Tablet PO SCH (11:48)
[2021-05-06 01:37] LABS: Hematocrit 28.5 % (37.5-50.1); Hemoglobin 9.7 g/dL (12.9-16.9); Mean Corpuscular Hemoglobin 32.8 pg (28.0-33.3); Mean Corpuscular Volume 96.3 fL (83.0-100.0); Mean Platelet Volume 8.7 fL (9.4-12.4); Platelet Count 266 K/mcL (140-400); Red Blood Count 2.96 M/mcL (4.19-5.50); Red Cell Distribution Width 12.5 % (11.5-14.5); White Blood Count 5.2 K/mcL (4.3-11.1)
[2021-05-06 01:52] LABS: BUN/Creatinine Ratio 14 (6-26); Blood Urea Nitrogen 20 mg/dL (8-23); Calcium 9.2 mg/dL (8.6-10.3); Carbon Dioxide 24 mEq/L (23-29); Chloride 104 mEq/L (98-107); Glucose 154 mg/dL (70-105); Osmolality,Calculated 288 (280-300); Sodium 136 mEq/L (136-145); eGFR For African Americans > 60 (> 60); eGFR For Non-African Americans 51 (> 60)
[2021-05-06] MEDS: Insulin LISPRO 300 UNITS/3 ML VIAL SUBQ SCH ×4 (07:56→20:14)
[2021-05-06] MEDS: Budesonide/Formoterol 160/4.5 1 PUFF INH IH SCH ×2 (08:10→20:07)
[2021-05-06] MEDS: amLODIPine 5 MG TABLET PO SCH (08:28)
[2021-05-06] MEDS: Aspirin Enteric Coated 81 MG Tablet PO SCH (08:29)
[2021-05-06] MEDS: Isosorbide MONOnitrate (24 HR) 30 MG TAB.ER.24H PO SCH (08:29)
[2021-05-06] MEDS: Apixaban 5 MG TABLET PO SCH ×2 (08:29→20:14)
[2021-05-06] MEDS: Venlafaxine XR (24 HR) 75 MG CAP.ER.24H PO SCH (08:29)
[2021-05-06] MEDS: *HR* OxyCODONE/APAP 10/325 TABLET PO PRN (15:30)
[2021-05-06] MEDS: Thiamine (B-1) 100 MG TABLET PO SCH (20:13)
[2021-05-06] MEDS: Cyanocobalamin (B-12) 1,000 MCG TABLET PO SCH (20:13)
[2021-05-07] MEDS: Insulin LISPRO 300 UNITS/3 ML VIAL SUBQ SCH ×4 (07:49→21:05)
[2021-05-07] MEDS: Budesonide/Formoterol 160/4.5 1 PUFF INH IH SCH ×2 (07:53→23:12)
[2021-05-07] MEDS: Isosorbide MONOnitrate (24 HR) 30 MG TAB.ER.24H PO SCH (09:17)
[2021-05-07] MEDS: Cyanocobalamin (B-12) 1,000 MCG TABLET PO SCH (09:17)
[2021-05-07] MEDS: Aspirin Enteric Coated 81 MG Tablet PO SCH (09:17)
[2021-05-07] MEDS: Venlafaxine XR (24 HR) 75 MG CAP.ER.24H PO SCH (09:17)
[2021-05-07] MEDS: Apixaban 5 MG TABLET PO SCH ×2 (09:18→21:05)
[2021-05-07] MEDS: amLODIPine 5 MG TABLET PO SCH (09:18)
[2021-05-07] MEDS: Thiamine (B-1) 100 MG TABLET PO SCH (09:18)
[2021-05-07] MEDS: 0.9 % Sodium Chloride 1,000 ML IVC SCH ×2 (10:16→22:43)
[2021-05-07 10:23] LABS: Basophils # 0.1 K/mcL (0.0-0.2); Basophils % 1.3 %; Eosinophils # 0.2 K/mcL (0.0-0.6); Eosinophils % 3.5 %; Hematocrit 28.9 % (37.5-50.1); Hemoglobin 9.8 g/dL (12.9-16.9); Immature Granulocytes % 0.6 % (0-4); Lymphocytes # 1.4 K/mcL (0.6-4.6); Lymphocytes % 26.1 %; Mean Corpuscular HGB Conc 33.9 g/dL (31.6-35.5); Mean Corpuscular Hemoglobin 33.3 pg (28.0-33.3); Mean Corpuscular Volume 98.3 fL (83.0-100.0); Mean Platelet Volume 8.8 fL (9.4-12.4); Monocytes # 0.4 K/mcL (0.0-1.3); Monocytes % 7.8 %; Neutrophils # 3.3 K/mcL (1.6-8.9); Platelet Count 260 K/mcL (140-400); Red Blood Count 2.94 M/mcL (4.19-5.50); Red Cell Distribution Width 12.7 % (11.5-14.5); Segmented Neutrophils % 60.7 %; White Blood Count 5.4 K/mcL (4.3-11.1)
[2021-05-07 10:45] LABS: BUN/Creatinine Ratio 15 (6-26); Blood Urea Nitrogen 16 mg/dL (8-23); Calcium 9.2 mg/dL (8.6-10.3); Carbon Dioxide 23 mEq/L (23-29); Chloride 104 mEq/L (98-107); Glucose 199 mg/dL (70-105); Osmolality,Calculated 291 (280-300); Potassium 3.8 mEq/L (3.5-5.1); Sodium 137 mEq/L (136-145); eGFR For African Americans > 60 (> 60); eGFR For Non-African Americans > 60 (> 60)
[2021-05-08] MEDS: *HR* OxyCODONE/APAP 10/325 TABLET PO PRN (02:10)
[2021-05-08 02:45] LABS: Basophils # 0.1 K/mcL (0.0-0.2); Basophils % 1.2 %; Eosinophils # 0.2 K/mcL (0.0-0.6); Eosinophils % 3.4 %; Hematocrit 26.9 % (37.5-50.1); Immature Granulocytes % 0.4 % (0-4); Lymphocytes # 1.4 K/mcL (0.6-4.6); Lymphocytes % 27.5 %; Mean Corpuscular HGB Conc 33.5 g/dL (31.6-35.5); Mean Corpuscular Hemoglobin 32.8 pg (28.0-33.3); Mean Corpuscular Volume 98.2 fL (83.0-100.0); Mean Platelet Volume 8.7 fL (9.4-12.4); Monocytes # 0.5 K/mcL (0.0-1.3); Monocytes % 9.4 %; Neutrophils # 2.9 K/mcL (1.6-8.9); Platelet Count 253 K/mcL (140-400); Red Blood Count 2.74 M/mcL (4.19-5.50); Red Cell Distribution Width 12.3 % (11.5-14.5); Segmented Neutrophils % 58.1 %
[2021-05-08 02:49] LABS: BUN/Creatinine Ratio 15 (6-26); Blood Urea Nitrogen 17 mg/dL (8-23); Calcium 8.8 mg/dL (8.6-10.3); Carbon Dioxide 24 mEq/L (23-29); Chloride 107 mEq/L (98-107); Glucose 135 mg/dL (70-105); Osmolality,Calculated 288 (280-300); Potassium 3.9 mEq/L (3.5-5.1); Sodium 137 mEq/L (136-145); eGFR For African Americans > 60 (> 60); eGFR For Non-African Americans > 60 (> 60)
[2021-05-08] MEDS: amLODIPine 5 MG TABLET PO SCH (08:16)
[2021-05-08] MEDS: Venlafaxine XR (24 HR) 75 MG CAP.ER.24H PO SCH (08:16)
[2021-05-08] MEDS: Aspirin Enteric Coated 81 MG Tablet PO SCH (08:16)
[2021-05-08] MEDS: Isosorbide MONOnitrate (24 HR) 30 MG TAB.ER.24H PO SCH (08:16)
[2021-05-08] MEDS: Apixaban 5 MG TABLET PO SCH ×2 (08:16→20:12)
[2021-05-08] MEDS: Cyanocobalamin (B-12) 1,000 MCG TABLET PO SCH (08:17)
[2021-05-08] MEDS: Thiamine (B-1) 100 MG TABLET PO SCH (08:17)
[2021-05-08] MEDS: Budesonide/Formoterol 160/4.5 1 PUFF INH IH SCH ×2 (08:18→19:56)
[2021-05-08] MEDS: Insulin LISPRO 300 UNITS/3 ML VIAL SUBQ SCH ×4 (08:20→20:13)
[2021-05-08] MEDS: diazePAM 5 MG TABLET PO PRN (20:12)
[2021-05-09] MEDS: Aspirin Enteric Coated 81 MG Tablet PO SCH (07:28)
[2021-05-09] MEDS: Isosorbide MONOnitrate (24 HR) 30 MG TAB.ER.24H PO SCH (07:28)
[2021-05-09] MEDS: Cyanocobalamin (B-12) 1,000 MCG TABLET PO SCH (07:28)
[2021-05-09] MEDS: amLODIPine 5 MG TABLET PO SCH (07:28)
[2021-05-09] MEDS: Venlafaxine XR (24 HR) 75 MG CAP.ER.24H PO SCH (07:28)
[2021-05-09] MEDS: Apixaban 5 MG TABLET PO SCH ×2 (07:28→19:47)
[2021-05-09] MEDS: Thiamine (B-1) 100 MG TABLET PO SCH (07:28)
[2021-05-09] MEDS: Insulin LISPRO 300 UNITS/3 ML VIAL SUBQ SCH ×4 (07:29→20:25)
[2021-05-09] MEDS: Budesonide/Formoterol 160/4.5 1 PUFF INH IH SCH ×2 (11:12→20:17)
[2021-05-09] MEDS: *HR* OxyCODONE/APAP 10/325 TABLET PO PRN (13:19)
[2021-05-09] MEDS: 0.9 % Sodium Chloride 1,000 ML IVC SCH (14:13)
[2021-05-09] MEDS: OXcarbazepine 150 MG TABLET PO SCH (19:47)
[2021-05-09] MEDS: diazePAM 5 MG TABLET PO PRN (19:47)
[2021-05-10] MEDS: 0.9 % Sodium Chloride 1,000 ML IVC SCH (00:17)
[2021-05-10] MEDS: Insulin LISPRO 300 UNITS/3 ML VIAL SUBQ SCH ×4 (07:11→20:25)
[2021-05-10] MEDS: Budesonide/Formoterol 160/4.5 1 PUFF INH IH SCH ×2 (07:35→20:24)
[2021-05-10] MEDS: amLODIPine 5 MG TABLET PO SCH (07:56)
[2021-05-10] MEDS: Apixaban 5 MG TABLET PO SCH ×2 (07:56→20:22)
[2021-05-10] MEDS: Aspirin Enteric Coated 81 MG Tablet PO SCH (07:56)
[2021-05-10] MEDS: Isosorbide MONOnitrate (24 HR) 30 MG TAB.ER.24H PO SCH (07:56)
[2021-05-10] MEDS: Venlafaxine XR (24 HR) 75 MG CAP.ER.24H PO SCH (07:56)
[2021-05-10] MEDS: OXcarbazepine 150 MG TABLET PO SCH ×2 (07:56→20:22)
[2021-05-10] MEDS: Cyanocobalamin (B-12) 1,000 MCG TABLET PO SCH (07:57)
[2021-05-10] MEDS: Thiamine (B-1) 100 MG TABLET PO SCH (07:57)
[2021-05-10 23:03] VITALS: O2SAT 96
[2021-05-11] MEDS: Insulin LISPRO 300 UNITS/3 ML VIAL SUBQ SCH ×2 (07:03→11:23)
[2021-05-11] MEDS: Budesonide/Formoterol 160/4.5 1 PUFF INH IH SCH (07:37)
[2021-05-11] MEDS: Thiamine (B-1) 100 MG TABLET PO SCH (08:09)
[2021-05-11] MEDS: Isosorbide MONOnitrate (24 HR) 30 MG TAB.ER.24H PO SCH (08:09)
[2021-05-11] MEDS: Aspirin Enteric Coated 81 MG Tablet PO SCH (08:09)
[2021-05-11] MEDS: Cyanocobalamin (B-12) 1,000 MCG TABLET PO SCH (08:09)
[2021-05-11] MEDS: Venlafaxine XR (24 HR) 75 MG CAP.ER.24H PO SCH (08:09)
[2021-05-11] MEDS: OXcarbazepine 150 MG TABLET PO SCH (08:09)
[2021-05-11] MEDS: amLODIPine 5 MG TABLET PO SCH (08:10)
[2021-05-11] MEDS: Apixaban 5 MG TABLET PO SCH (08:10)
[2021-05-11 14:45] VITALS: BP 140/74; PULSE 75; TEMP 97.9
== END 2021-05-11 16:47 | disposition home or self-care (01) | DRG 312 ==
LOC: 3BNU → SUATTDRO 05-07 11:33
PROVIDERS: ADMIT Student in an Organized Health Care Education/Training Program; ATTEND Registered Nurse

== ENCOUNTER 2021-08-25 05:49 | Inpatient (IN) ==
[2021-08-25] MEDS ORDERED: Aspirin 81 MG TAB.CHEW PO ONE (06:05)
[2021-08-25] MEDS ORDERED: *HR* OxyCODONE Immed Rel 5 MG TABLET PO ONE (06:08)
[2021-08-25] MEDS: Nitroglycerin 0.4 MG TAB.SUBL SL SCH ×3 (06:30→06:50)
[2021-08-25 06:31] LABS: Basophils # 0.1 K/mcL (0.0-0.2); Basophils % 0.8 %; Eosinophils # 0.2 K/mcL (0.0-0.6); Eosinophils % 2.5 %; Hemoglobin 11.7 g/dL (12.9-16.9); Immature Granulocytes % 0.3 % (0-4); Lymphocytes # 1.4 K/mcL (0.6-4.6); Lymphocytes % 22.7 %; Mean Corpuscular HGB Conc 34.4 g/dL (31.6-35.5); Mean Corpuscular Volume 92.9 fL (83.0-100.0); Mean Platelet Volume 8.8 fL (9.4-12.4); Monocytes # 0.6 K/mcL (0.0-1.3); Monocytes % 10.4 %; Neutrophils # 3.8 K/mcL (1.6-8.9); Platelet Count 196 K/mcL (140-400); Red Blood Count 3.66 M/mcL (4.19-5.50); Red Cell Distribution Width 12.7 % (11.5-14.5); Segmented Neutrophils % 63.3 %
[2021-08-25 06:40] LABS: INR 1.3; Prothrombin Time 14.1 Seconds (9.4-12.1)
[2021-08-25 06:43] LABS: Activated Partial Thrombo Time 36.8 Seconds (26.0-36.0)
[2021-08-25 06:58] LABS: Alanine Aminotransferase 16 Units/L (7-52); Albumin 4.1 g/dL (3.5-5.7); Albumin/Globulin Ratio 1.6 (1.1-2.2); Alkaline Phosphatase 93 Units/L (34-104); Aspartate Amino Transferase 21 Units/L (13-39); BUN/Creatinine Ratio 15 (6-26); Bilirubin,Direct 0.2 mg/dL (0.0-0.2); Bilirubin,Indirect 0.7 mg/dL (0.0-1.0); Bilirubin,Total 0.9 mg/dL (0.3-1.0); Blood Urea Nitrogen 16 mg/dL (8-23); Calcium 9.6 mg/dL (8.6-10.3); Carbon Dioxide 24 mEq/L (23-29); Chloride 104 mEq/L (98-107); Globulin 2.6 g/dL (2.4-3.5); Glucose 149 mg/dL (70-105); Lipase 23 Units/L (11-82); Osmolality,Calculated 286 (280-300); Potassium 3.8 mEq/L (3.5-5.1); Sodium 136 mEq/L (136-145); Total Protein 6.7 g/dL (6.4-8.9); Troponin I 0.03 ng/mL (< 0.04); eGFR For African Americans > 60 (> 60); eGFR For Non-African Americans > 60 (> 60)
[2021-08-25 10:03] LABS: Influenza A PCR Negative (Negative); Influenza B PCR Negative (Negative); Resp. Syncytial Virus PCR Negative (Negative)
[2021-08-25 10:04] LABS: SARS-CoV-2 by PCR (In House) Negative (Negative)
[2021-08-25] MEDS ORDERED: Mag Hydrox/Al Hydrox/Simeth 30 ML UDC PO PRN (13:59)
[2021-08-25] MEDS ORDERED: Melatonin 3 MG TABLET PO PRN (13:59)
[2021-08-25] MEDS ORDERED: Naloxone 0.4 MG/ML INJ IVP PRN (13:59)
[2021-08-25] MEDS ORDERED: Ondansetron 4 MG/2 ML VIAL IVP PRN (13:59)
[2021-08-25] MEDS ORDERED: Nitroglycerin 0.4 MG TAB.SUBL SL PRN (14:01)
[2021-08-25] MEDS ORDERED: diazePAM 5 MG TABLET PO PRN (14:01)
[2021-08-25] MEDS ORDERED: *HR* Dextrose 50 % in Water (Syg) 50 ML SYRINGE IVP PRN (14:04)
[2021-08-25] MEDS ORDERED: D5% in Water 1,000 ML IVC PRN (14:04)
[2021-08-25] MEDS ORDERED: Dextrose 4 GM Chewable Tablets PO PRN ×2 (14:04)
[2021-08-25] MEDS: Insulin LISPRO 300 UNITS/3 ML VIAL SUBQ SCH ×2 (15:41→21:54)
[2021-08-25] MEDS: Budesonide/Formoterol 160/4.5 1 PUFF INH IH SCH (19:41)
[2021-08-25] MEDS: Apixaban 5 MG TABLET PO SCH (21:51)
[2021-08-26 01:08] LABS: Hematocrit 35.4 % (37.5-50.1); Hemoglobin 11.8 g/dL (12.9-16.9); Mean Corpuscular HGB Conc 33.3 g/dL (31.6-35.5); Mean Corpuscular Hemoglobin 31.5 pg (28.0-33.3); Mean Corpuscular Volume 94.4 fL (83.0-100.0); Mean Platelet Volume 8.9 fL (9.4-12.4); Platelet Count 192 K/mcL (140-400); Red Blood Count 3.75 M/mcL (4.19-5.50); Red Cell Distribution Width 12.8 % (11.5-14.5)
[2021-08-26 01:37] LABS: BUN/Creatinine Ratio 14 (6-26); Blood Urea Nitrogen 14 mg/dL (8-23); Calcium 9.1 mg/dL (8.6-10.3); Carbon Dioxide 24 mEq/L (23-29); Chloride 106 mEq/L (98-107); Glucose 136 mg/dL (70-105); Magnesium 1.7 mg/dL (1.6-2.6); Osmolality,Calculated 287 (280-300); Phosphorous 3.9 mg/dL (2.7-4.5); Potassium 4.5 mEq/L (3.5-5.1); Sodium 137 mEq/L (136-145); eGFR For African Americans > 60 (> 60); eGFR For Non-African Americans > 60 (> 60)
[2021-08-26] MEDS ORDERED: Regadenoson 0.4 MG/5 ML SYRINGE IVP ONE (07:01)
[2021-08-26] MEDS: Insulin LISPRO 300 UNITS/3 ML VIAL SUBQ SCH ×4 (07:59→20:31)
[2021-08-26] MEDS: Budesonide/Formoterol 160/4.5 1 PUFF INH IH SCH ×2 (09:35→20:09)
[2021-08-26] MEDS: Aspirin Enteric Coated 81 MG Tablet PO SCH (09:59)
[2021-08-26] MEDS: Apixaban 5 MG TABLET PO SCH ×2 (09:59→20:33)
[2021-08-27] MEDS: Insulin LISPRO 300 UNITS/3 ML VIAL SUBQ SCH (07:56)
[2021-08-27] MEDS ORDERED: Isosorbide MONOnitrate (24 HR) 60 MG TAB.ER.24H PO SCH (09:00)
[2021-08-27] MEDS: Apixaban 5 MG TABLET PO SCH (09:21)
[2021-08-27] MEDS: Aspirin Enteric Coated 81 MG Tablet PO SCH (09:21)
[2021-08-27 10:51] VITALS: BP 145/82; PULSE 86; TEMP 98.2; O2SAT 96
[2021-08-27] MEDS: Budesonide/Formoterol 160/4.5 1 PUFF INH IH SCH (11:50)
== END 2021-08-27 13:33 | disposition home or self-care (01) | DRG 313 ==
LOC: 3BNU 05:49 → EMEROOARM 05:49 → 3BNU 13:12 → SUATTDRO 08-26 14:12
PROVIDERS: ADMIT Nurse Practitioner; ATTEND Nurse Practitioner

== ENCOUNTER 2021-11-03 16:19 | Observation (INO) ==
[2021-11-03] MEDS ORDERED: Isovue-370 500 ML BOTTLE IVP ONE (17:03)
[2021-11-03] MEDS ORDERED: *HR* OxyCODONE Immed Rel 5 MG TABLET PO ONE (17:05)
[2021-11-03 17:32] LABS: Bilirubin,Urine Negative (Negative); Blood,Urine Negative (Negative); Clarity,Urine Clear (Clear); Color,Urine Light-Yellow (Yellow); Glucose,Urine (UA) 200 mg/dL (Normal); Hyaline Casts,Urine Few per lpf (None Seen); Ketones,Urine Negative (Negative); Leukocyte Esterase,Urine Negative (Negative); Mucus,Urine Few per lpf (None-Few); Nitrite,Urine Negative (Negative); PH,Urine 5.5 pH Units (5.0-8.0); Protein,Urine Negative (Neg-Trace); RBC,Urine 0-3 per hpf (0-3); Specific Gravity,Urine 1.015 (1.010-1.025); Urobilinogen,Urine Normal (Normal); WBC,Urine 0-3 per hpf (0-3)
[2021-11-03 17:53] LABS: Basophils # 0.1 K/mcL (0.0-0.2); Eosinophils # 0.2 K/mcL (0.0-0.6); Eosinophils % 2.8 %; Hematocrit 34.9 % (37.5-50.1); Hemoglobin 11.7 g/dL (12.9-16.9); Immature Granulocytes % 0.3 % (0-4); Lymphocytes # 1.3 K/mcL (0.6-4.6); Lymphocytes % 21.8 %; Mean Corpuscular HGB Conc 33.5 g/dL (31.6-35.5); Mean Corpuscular Hemoglobin 31.5 pg (28.0-33.3); Mean Corpuscular Volume 94.1 fL (83.0-100.0); Mean Platelet Volume 8.9 fL (9.4-12.4); Monocytes # 0.6 K/mcL (0.0-1.3); Monocytes % 10.3 %; Neutrophils # 3.7 K/mcL (1.6-8.9); Platelet Count 213 K/mcL (140-400); Red Blood Count 3.71 M/mcL (4.19-5.50); Red Cell Distribution Width 13.1 % (11.5-14.5); Segmented Neutrophils % 63.8 %; White Blood Count 5.7 K/mcL (4.3-11.1)
[2021-11-03 18:00] LABS: INR 1.2; Prothrombin Time 13.7 Seconds (9.4-12.1)
[2021-11-03 18:03] LABS: Activated Partial Thrombo Time 33.4 Seconds (26.0-36.0)
[2021-11-03 18:19] LABS: Alanine Aminotransferase 11 Units/L (7-52); Albumin 4.2 g/dL (3.5-5.7); Albumin/Globulin Ratio 1.5 (1.1-2.2); Alkaline Phosphatase 78 Units/L (34-104); Aspartate Amino Transferase 12 Units/L (13-39); BUN/Creatinine Ratio 13 (6-26); Bilirubin,Direct 0.2 mg/dL (0.0-0.2); Bilirubin,Total 1.2 mg/dL (0.3-1.0); Blood Urea Nitrogen 13 mg/dL (8-23); Calcium 9.3 mg/dL (8.6-10.3); Carbon Dioxide 26 mEq/L (23-29); Chloride 105 mEq/L (98-107); Globulin 2.8 g/dL (2.4-3.5); Glucose 189 mg/dL (70-105); Lipase 20 Units/L (11-82); Osmolality,Calculated 291 (280-300); Potassium 3.9 mEq/L (3.5-5.1); Sodium 138 mEq/L (136-145); Troponin I 0.04 ng/mL (< 0.04); eGFR For African Americans > 60 (> 60); eGFR For Non-African Americans > 60 (> 60)
[2021-11-03] MEDS ORDERED: Nitroglycerin 0.4 MG TAB.SUBL SL PRN (21:15)
[2021-11-03] MEDS ORDERED: Aspirin 325 MG TABLET PO ONE (21:15)
[2021-11-03] MEDS ORDERED: Ondansetron 4 MG/2 ML VIAL IVP PRN (22:09)
[2021-11-03] MEDS ORDERED: Naloxone 0.4 MG/ML INJ IVP PRN (22:09)
[2021-11-03] MEDS ORDERED: *HR* OxyCODONE Immed Rel 5 MG TABLET PO PRN (22:09)
[2021-11-04] MEDS ORDERED: Furosemide 40 MG/4 ML VIAL IVP ONE (00:34)
[2021-11-04 01:00] LABS: Hematocrit 34.5 % (37.5-50.1); Hemoglobin 11.4 g/dL (12.9-16.9); Mean Corpuscular Hemoglobin 31.1 pg (28.0-33.3); Mean Corpuscular Volume 94.3 fL (83.0-100.0); Mean Platelet Volume 9.2 fL (9.4-12.4); Platelet Count 230 K/mcL (140-400); Red Blood Count 3.66 M/mcL (4.19-5.50); Red Cell Distribution Width 13.1 % (11.5-14.5); White Blood Count 6.2 K/mcL (4.3-11.1)
[2021-11-04 01:03] LABS: BUN/Creatinine Ratio 11 (6-26); Blood Urea Nitrogen 12 mg/dL (8-23); Calcium 9.2 mg/dL (8.6-10.3); Carbon Dioxide 26 mEq/L (23-29); Chloride 103 mEq/L (98-107); Chol/HDL Ratio 4.3 (0-4.9); Cholesterol 125 mg/dL (< 200); Glucose 140 mg/dL (70-105); HDL Cholesterol 29 mg/dL (40-59); LDL Cholesterol,Calculated 68 mg/dL (< 100); Osmolality,Calculated 286 (280-300); Potassium 4.2 mEq/L (3.5-5.1); Sodium 137 mEq/L (136-145); Triglycerides 139 mg/dL (< 150); eGFR For African Americans > 60 (> 60); eGFR For Non-African Americans > 60 (> 60)
[2021-11-04] MEDS: Acetaminophen 325 MG TABLET PO PRN ×2 (06:12→23:13)
[2021-11-04] MEDS ORDERED: *HR* OxyCODONE/APAP 10/325 TABLET PO PRN (09:51)
[2021-11-04] MEDS ORDERED: diazePAM 5 MG TABLET PO PRN (09:51)
[2021-11-04] MEDS ORDERED: Furosemide 40 MG TABLET PO SCH (10:00)
[2021-11-04] MEDS: Apixaban 5 MG TABLET PO SCH ×2 (10:51→20:19)
[2021-11-04] MEDS: Budesonide/Formoterol 160/4.5 1 PUFF INH IH SCH ×2 (10:54→20:24)
[2021-11-04] MEDS ORDERED: D5% in Water 1,000 ML IVC PRN (10:59)
[2021-11-04] MEDS ORDERED: *HR* Dextrose 50 % in Water (Syg) 50 ML SYRINGE IVP PRN (10:59)
[2021-11-04] MEDS ORDERED: Dextrose Gel 15 GM/37.5 ML TUBE PO PRN ×2 (10:59)
[2021-11-04] MEDS ORDERED: *HR* Labetalol 20 MG/4 ML SYRINGE IVP ONE (12:54)
[2021-11-04] MEDS: Insulin LISPRO 300 UNITS/3 ML VIAL SUBQ SCH ×2 (13:07→17:09)
[2021-11-04] MEDS: OXcarbazepine 150 MG TABLET PO SCH (20:20)
[2021-11-04] MEDS ORDERED: Insulin LISPRO 300 UNITS/3 ML VIAL SUBQ SCH (21:00)
[2021-11-05 06:39] VITALS: BP 157/99; PULSE 83; TEMP 98.2
[2021-11-05] MEDS: Budesonide/Formoterol 160/4.5 1 PUFF INH IH SCH (07:43)
[2021-11-05 07:45] VITALS: O2SAT 100
[2021-11-05] MEDS: Apixaban 5 MG TABLET PO SCH (08:41)
[2021-11-05] MEDS: OXcarbazepine 150 MG TABLET PO SCH (08:42)
[2021-11-05] MEDS: Acetaminophen 325 MG TABLET PO PRN (08:42)
[2021-11-05] MEDS: Insulin LISPRO 300 UNITS/3 ML VIAL SUBQ SCH (08:44)
[2021-11-05] MEDS ORDERED: Isosorbide MONOnitrate (24 HR) 60 MG TAB.ER.24H PO SCH (09:00)
[2021-11-05] MEDS ORDERED: Venlafaxine XR (24 HR) 75 MG CAP.ER.24H PO SCH (09:00)
[2021-11-05] MEDS ORDERED: Aspirin Enteric Coated 81 MG Tablet PO SCH (09:00)
== END 2021-11-05 11:13 | disposition home or self-care (01) ==
LOC: 3BNU 16:19 → EMEROOARM 16:19 → 3BNU 22:34
PROVIDERS: ADMIT Internal Medicine; ATTEND Internal Medicine

== ENCOUNTER 2022-01-08 02:33 | Inpatient (IN) ==
[2022-01-08] MEDS: *HR* OxyCODONE/APAP 10/325 TABLET PO PRN ×2 (05:21→21:00)
[2022-01-08 06:00] LABS: Hematocrit 36.4 % (37.5-50.1); Hemoglobin 12.2 g/dL (12.9-16.9); Mean Corpuscular HGB Conc 33.5 g/dL (31.6-35.5); Mean Corpuscular Hemoglobin 31.2 pg (28.0-33.3); Mean Corpuscular Volume 93.1 fL (83.0-100.0); Mean Platelet Volume 9.4 fL (9.4-12.4); Platelet Count 236 K/mcL (140-400); Red Blood Count 3.91 M/mcL (4.19-5.50); Red Cell Distribution Width 13.2 % (11.5-14.5); White Blood Count 6.6 K/mcL (4.3-11.1)
[2022-01-08 06:41] LABS: BUN/Creatinine Ratio 14 (6-26); Blood Urea Nitrogen 17 mg/dL (8-23); Calcium 9.4 mg/dL (8.6-10.3); Carbon Dioxide 25 mEq/L (23-29); Chloride 101 mEq/L (98-107); Glucose 131 mg/dL (70-105); Osmolality,Calculated 289 (280-300); Potassium 3.8 mEq/L (3.5-5.1); Sodium 138 mEq/L (136-145); Thyroid Stimulating Hormone 3.783 mcIU/mL (0.340-5.600); Troponin I 0.04 ng/mL (< 0.04); eGFR For African Americans > 60 (> 60); eGFR For Non-African Americans 59 (> 60)
[2022-01-08] MEDS ORDERED: Aspirin 81 MG TAB.CHEW PO ONE (07:08)
[2022-01-08 07:31] LABS: Bilirubin,Urine Negative (Negative); Blood,Urine Negative (Negative); Clarity,Urine Clear (Clear); Color,Urine Yellow (Yellow); Glucose,Urine (UA) 200 mg/dL (Normal); Hyaline Casts,Urine Few per lpf (None Seen); Ketones,Urine Negative (Negative); Leukocyte Esterase,Urine Negative (Negative); Mucus,Urine Few per lpf (None-Few); Nitrite,Urine Negative (Negative); PH,Urine 5.5 pH Units (5.0-8.0); Protein,Urine Trace mg/dL (Neg-Trace); RBC,Urine 0-3 per hpf (0-3); Specific Gravity,Urine 1.025 (1.010-1.025); WBC,Urine 0-3 per hpf (0-3)
[2022-01-08] MEDS ORDERED: Dextrose Gel 15 GM/37.5 ML TUBE PO PRN ×2 (08:29)
[2022-01-08] MEDS ORDERED: *HR* Dextrose 50 % in Water (Syg) 50 ML SYRINGE IVP PRN (08:29)
[2022-01-08] MEDS ORDERED: Naloxone 0.4 MG/ML INJ IVP PRN (08:29)
[2022-01-08] MEDS ORDERED: Acetaminophen 325 MG TABLET PO PRN (08:29)
[2022-01-08] MEDS ORDERED: D5% in Water 1,000 ML IVC PRN (08:29)
[2022-01-08] MEDS ORDERED: Ondansetron 4 MG/2 ML VIAL IVP PRN (08:29)
[2022-01-08] MEDS: Insulin LISPRO 300 UNITS/3 ML VIAL SUBQ SCH ×2 (12:50→16:38)
[2022-01-09 01:39] LABS: Basophils # 0.1 K/mcL (0.0-0.2); Basophils % 1.1 %; Eosinophils # 0.2 K/mcL (0.0-0.6); Eosinophils % 3.5 %; Hematocrit 35.3 % (37.5-50.1); Hemoglobin 11.9 g/dL (12.9-16.9); Immature Granulocytes % 0.5 % (0-4); Lymphocytes # 1.5 K/mcL (0.6-4.6); Lymphocytes % 26.4 %; Mean Corpuscular HGB Conc 33.7 g/dL (31.6-35.5); Mean Corpuscular Hemoglobin 31.4 pg (28.0-33.3); Mean Corpuscular Volume 93.1 fL (83.0-100.0); Mean Platelet Volume 9.1 fL (9.4-12.4); Monocytes # 0.4 K/mcL (0.0-1.3); Monocytes % 7.7 %; Neutrophils # 3.3 K/mcL (1.6-8.9); Platelet Count 206 K/mcL (140-400); Red Blood Count 3.79 M/mcL (4.19-5.50); Segmented Neutrophils % 60.8 %; White Blood Count 5.5 K/mcL (4.3-11.1)
[2022-01-09 02:01] LABS: BUN/Creatinine Ratio 16 (6-26); Blood Urea Nitrogen 15 mg/dL (8-23); Calcium 8.9 mg/dL (8.6-10.3); Carbon Dioxide 27 mEq/L (23-29); Chloride 104 mEq/L (98-107); Chol/HDL Ratio 4.5 (0-4.9); Cholesterol 117 mg/dL (< 200); Glucose 114 mg/dL (70-105); HDL Cholesterol 26 mg/dL (40-59); LDL Cholesterol,Calculated 59 mg/dL (< 100); Osmolality,Calculated 288 (280-300); Potassium 3.6 mEq/L (3.5-5.1); Sodium 138 mEq/L (136-145); Triglycerides 162 mg/dL (< 150); eGFR For African Americans > 60 (> 60); eGFR For Non-African Americans > 60 (> 60)
[2022-01-09 03:01] LABS: Estimated Average Glucose 183 mg/dl
[2022-01-09] MEDS: *HR* OxyCODONE/APAP 10/325 TABLET PO PRN ×3 (07:53→20:45)
[2022-01-09] MEDS: Insulin LISPRO 300 UNITS/3 ML VIAL SUBQ SCH ×3 (08:11→17:04)
[2022-01-09] MEDS: Venlafaxine XR (24 HR) 75 MG CAP.ER.24H PO SCH (09:30)
[2022-01-09] MEDS: Aspirin Enteric Coated 81 MG Tablet PO SCH (09:30)
[2022-01-09] MEDS: amLODIPine 5 MG TABLET PO SCH (09:30)
[2022-01-09] MEDS: Apixaban 5 MG TABLET PO SCH ×2 (09:30→20:45)
[2022-01-09] MEDS: Furosemide 40 MG TABLET PO SCH (09:30)
[2022-01-10] MEDS: *HR* OxyCODONE/APAP 10/325 TABLET PO PRN ×2 (02:40→23:34)
[2022-01-10 02:44] LABS: Folate 6.8 ng/mL (3.0-16.0)
[2022-01-10] MEDS: Venlafaxine XR (24 HR) 75 MG CAP.ER.24H PO SCH (07:36)
[2022-01-10] MEDS: amLODIPine 5 MG TABLET PO SCH ×2 (07:36→10:18)
[2022-01-10] MEDS: Apixaban 5 MG TABLET PO SCH ×2 (07:37→23:34)
[2022-01-10] MEDS: Insulin LISPRO 300 UNITS/3 ML VIAL SUBQ SCH ×3 (07:37→16:58)
[2022-01-10] MEDS: Aspirin Enteric Coated 81 MG Tablet PO SCH (07:37)
[2022-01-10] MEDS: Cyanocobalamin (B-12) 1,000 MCG TABLET PO SCH (13:48)
[2022-01-10] MEDS ORDERED: Cyanocobalamin (B-12) 1,000 MCG/ML VIAL IM ONE (15:59)
[2022-01-11] MEDS: Apixaban 5 MG TABLET PO SCH ×2 (08:38→21:57)
[2022-01-11] MEDS: Venlafaxine XR (24 HR) 75 MG CAP.ER.24H PO SCH (08:38)
[2022-01-11] MEDS: amLODIPine 5 MG TABLET PO SCH (08:38)
[2022-01-11] MEDS: Cyanocobalamin (B-12) 1,000 MCG TABLET PO SCH (08:38)
[2022-01-11] MEDS: Aspirin Enteric Coated 81 MG Tablet PO SCH (08:38)
[2022-01-11] MEDS: Furosemide 40 MG TABLET PO SCH (08:38)
[2022-01-11] MEDS: Insulin LISPRO 300 UNITS/3 ML VIAL SUBQ SCH ×3 (08:41→17:41)
[2022-01-11] MEDS: *HR* OxyCODONE/APAP 10/325 TABLET PO PRN (21:57)
[2022-01-12] MEDS: Insulin LISPRO 300 UNITS/3 ML VIAL SUBQ SCH ×3 (08:05→17:43)
[2022-01-12] MEDS: Aspirin Enteric Coated 81 MG Tablet PO SCH (08:56)
[2022-01-12] MEDS: amLODIPine 5 MG TABLET PO SCH (08:56)
[2022-01-12] MEDS: Venlafaxine XR (24 HR) 75 MG CAP.ER.24H PO SCH (08:56)
[2022-01-12] MEDS: Cyanocobalamin (B-12) 1,000 MCG TABLET PO SCH (08:56)
[2022-01-12] MEDS: *HR* OxyCODONE/APAP 10/325 TABLET PO PRN (08:57)
[2022-01-12] MEDS ORDERED: Cyanocobalamin (B-12) 1,000 MCG/ML VIAL IM ONE (10:22)
[2022-01-12] MEDS: *HR* Enoxaparin 100 MG/ML SYRINGE SQ SCH ×2 (10:29→20:03)
[2022-01-12] MEDS: carvediloL 6.25 MG TABLET PO SCH (17:42)
[2022-01-13] MEDS: *HR* Enoxaparin 100 MG/ML SYRINGE SQ SCH ×2 (05:33→17:19)
[2022-01-13 07:00] LABS: Basophils # 0.1 K/mcL (0.0-0.2); Basophils % 1.6 %; Eosinophils # 0.2 K/mcL (0.0-0.6); Hematocrit 36.8 % (37.5-50.1); Hemoglobin 12.2 g/dL (12.9-16.9); Immature Granulocytes % 0.4 % (0-4); Lymphocytes # 1.3 K/mcL (0.6-4.6); Lymphocytes % 26.9 %; Mean Corpuscular HGB Conc 33.2 g/dL (31.6-35.5); Mean Corpuscular Hemoglobin 30.7 pg (28.0-33.3); Mean Corpuscular Volume 92.7 fL (83.0-100.0); Mean Platelet Volume 9.1 fL (9.4-12.4); Monocytes # 0.4 K/mcL (0.0-1.3); Monocytes % 8.4 %; Platelet Count 224 K/mcL (140-400); Red Blood Count 3.97 M/mcL (4.19-5.50); Red Cell Distribution Width 12.9 % (11.5-14.5); Segmented Neutrophils % 59.7 %
[2022-01-13 07:17] LABS: Calcium 9.2 mg/dL (8.6-10.3); Potassium 3.9 mEq/L (3.5-5.1)
[2022-01-13] MEDS: Venlafaxine XR (24 HR) 75 MG CAP.ER.24H PO SCH (09:34)
[2022-01-13] MEDS: carvediloL 6.25 MG TABLET PO SCH ×2 (09:34→17:20)
[2022-01-13] MEDS: Furosemide 40 MG TABLET PO SCH (09:35)
[2022-01-13] MEDS: Aspirin Enteric Coated 81 MG Tablet PO SCH (09:35)
[2022-01-13] MEDS: Cyanocobalamin (B-12) 1,000 MCG TABLET PO SCH (09:35)
[2022-01-13] MEDS: Insulin LISPRO 300 UNITS/3 ML VIAL SUBQ SCH ×3 (09:35→17:20)
[2022-01-13] MEDS: amLODIPine 5 MG TABLET PO SCH (09:35)
[2022-01-13] MEDS: *HR* OxyCODONE/APAP 10/325 TABLET PO PRN ×2 (09:36→17:19)
[2022-01-14] MEDS: *HR* Enoxaparin 100 MG/ML SYRINGE SQ SCH (05:17)
[2022-01-14] MEDS: Cyanocobalamin (B-12) 1,000 MCG TABLET PO SCH (08:43)
[2022-01-14] MEDS: carvediloL 6.25 MG TABLET PO SCH ×2 (08:43→17:07)
[2022-01-14] MEDS: Aspirin Enteric Coated 81 MG Tablet PO SCH (08:43)
[2022-01-14] MEDS: amLODIPine 5 MG TABLET PO SCH (08:44)
[2022-01-14] MEDS: Venlafaxine XR (24 HR) 75 MG CAP.ER.24H PO SCH (08:44)
[2022-01-14] MEDS: Insulin LISPRO 300 UNITS/3 ML VIAL SUBQ SCH ×3 (08:44→17:08)
[2022-01-14] MEDS ORDERED: *HR* Enoxaparin 100 MG/ML SYRINGE SQ ONE (18:00)
[2022-01-15] MEDS: Insulin LISPRO 300 UNITS/3 ML VIAL SUBQ SCH ×3 (06:59→17:06)
[2022-01-15] MEDS: carvediloL 6.25 MG TABLET PO SCH ×2 (07:31→17:05)
[2022-01-15] MEDS: Furosemide 40 MG TABLET PO SCH (07:31)
[2022-01-15] MEDS: amLODIPine 5 MG TABLET PO SCH (07:31)
[2022-01-15] MEDS: Aspirin Enteric Coated 81 MG Tablet PO SCH (07:32)
[2022-01-15] MEDS: Cyanocobalamin (B-12) 1,000 MCG TABLET PO SCH (07:33)
[2022-01-15] MEDS: Venlafaxine XR (24 HR) 75 MG CAP.ER.24H PO SCH (07:40)
[2022-01-15] MEDS: OXcarbazepine 150 MG TABLET PO SCH ×2 (10:00→20:19)
[2022-01-15] MEDS: Isosorbide MONOnitrate (24 HR) 60 MG TAB.ER.24H PO SCH (10:01)
[2022-01-16] MEDS: Insulin LISPRO 300 UNITS/3 ML VIAL SUBQ SCH ×3 (08:28→11:30)
[2022-01-16] MEDS: Venlafaxine XR (24 HR) 75 MG CAP.ER.24H PO SCH (08:30)
[2022-01-16] MEDS: Isosorbide MONOnitrate (24 HR) 60 MG TAB.ER.24H PO SCH (08:31)
[2022-01-16] MEDS: amLODIPine 5 MG TABLET PO SCH (08:31)
[2022-01-16] MEDS: Aspirin Enteric Coated 81 MG Tablet PO SCH (08:32)
[2022-01-16] MEDS: carvediloL 6.25 MG TABLET PO SCH (08:33)
[2022-01-16] MEDS: Cyanocobalamin (B-12) 1,000 MCG TABLET PO SCH (08:33)
[2022-01-16] MEDS: OXcarbazepine 150 MG TABLET PO SCH (08:58)
[2022-01-16] MEDS ORDERED: CeFAZolin Syr 2,000MG/20 ML 2,000 MG/20 ML SYRINGE IVPB ONE (12:43)
[2022-01-16] MEDS ORDERED: Ringers Solution, Lactated 1,000 ML IVC SCH ×2 (12:45→17:09)
[2022-01-16] MEDS ORDERED: *HR* FentaNYL (PF) 100 MCG/2 ML VIAL ONE (12:47)
[2022-01-16] MEDS ORDERED: *HR* Propofol 200 MG/20 ML VIAL IVP ONE (12:47)
[2022-01-16] MEDS ORDERED: *HR* Rocuronium Bromide 50 MG/5 ML VIAL ONE (12:49)
[2022-01-16] MEDS ORDERED: Lidocaine -MPF 2% 5 ML VIAL ONE (12:49)
[2022-01-16] MEDS ORDERED: Ondansetron 4 MG/2 ML VIAL ONE (12:49)
[2022-01-16] MEDS ORDERED: Vancomycin 1,000 MG VIAL ONE (13:10)
[2022-01-16] MEDS ORDERED: *HR* HYDROmorphone PF 0.5 MG/0.5 ML SYRINGE IVP PRN (13:14)
[2022-01-16] MEDS ORDERED: *HR* Remifentanil 1 MG VIAL IVP ONE (13:19)
[2022-01-16] MEDS ORDERED: EPHEDrine 50 MG/ML VIAL ONE (14:23)
[2022-01-16] MEDS ORDERED: Sugammadex Sodium 200 MG/2 ML VIAL IV ONE (15:10)
[2022-01-16] MEDS ORDERED: Nitroglycerin 0.4 MG TAB.SUBL SL PRN (17:09)
[2022-01-16] MEDS ORDERED: Acetaminophen 325 MG TABLET PO PRN (17:09)
[2022-01-16] MEDS ORDERED: *HR* OxyCODONE Immed Rel 5 MG TABLET PO PRN (17:09)
[2022-01-16] MEDS ORDERED: Naloxone 0.4 MG/ML INJ IVP PRN (17:09)
[2022-01-16] MEDS ORDERED: diazePAM 5 MG TABLET PO PRN (17:09)
[2022-01-16] MEDS ORDERED: *HR* OxyCODONE/APAP 10/325 TABLET PO PRN (17:09)
[2022-01-16] MEDS ORDERED: Ondansetron 4 MG/2 ML VIAL IVP PRN (17:09)
[2022-01-16] MEDS: *HR* Metformin 500 MG TABLET PO SCH (18:49)
[2022-01-16] MEDS: Lactobacillus 1 EACH CAP.SPRINK PO SCH (19:36)
[2022-01-16] MEDS: Glycopyrrolate 1 MG TABLET PO SCH (19:36)
[2022-01-16] MEDS: Budesonide/Formoterol 160/4.5 1 PUFF INH IH SCH (23:07)
[2022-01-16] MEDS: CeFAZolin 2 GM/120 ML BAG IVPB SCH (23:24)
[2022-01-17] MEDS: CeFAZolin 2 GM/120 ML BAG IVPB SCH (08:14)
[2022-01-17] MEDS: Lactobacillus 1 EACH CAP.SPRINK PO SCH (08:23)
[2022-01-17] MEDS: *HR* Metformin 500 MG TABLET PO SCH (08:23)
[2022-01-17] MEDS: Glycopyrrolate 1 MG TABLET PO SCH (08:24)
[2022-01-17 10:14] VITALS: BP 135/70; PULSE 76; TEMP 97.9
[2022-01-17] MEDS: Budesonide/Formoterol 160/4.5 1 PUFF INH IH SCH (10:28)
[2022-01-17 10:31] VITALS: O2SAT 98
[2022-01-19] MEDS ORDERED: Ergocalciferol (VIT D2) 50,000 UNIT (1.25MG) CAP PO SCH (09:00)
== END 2022-01-17 12:44 | disposition home or self-care (01) | DRG 515 ==
LOC: 3BNU 02:33 → EMEROOARM 02:33 → SUATTDRO 11:34 → 3BNU 12:41 → SUATTDRO 01-09 22:17 → 4WAOSI 01-16 16:39
PROVIDERS: ADMIT Internal Medicine; ATTEND Pharmacist